=== PATIENT | female | born 1935 | race Caucasian/White ===

== ENCOUNTER → 2016-08-17 | Outpatient (CLI) | payer BC ==
[~2016-08-17] MED LIST: ACET-1256 PO; AMLO2.5T PO; APIX1TAB PO; ASCA500 PO; B-CO-25 PO; CALC-456 PO; CALCTAB5 PO; CALCTAB7 PO; CALTRATE PO; CHOL100010 PO; CHOL2000 PO; CLBCRM30 EXT; COEN10CA5 PO; COEN200C17 PO; CYAN10005 PO; FLAX10007 PO; FLAXCAP PO; HYDR-5688 PO; LISI5TAB PO; LOSA50TA6 PO; MINERALS PO; OXYC-57 PO; PRLSR20 PO; PROB1TAB16 PO; PRVC/10 PO; TMB100 PO; VITACAP37 PO; ZINC PO; ZINC30TA3 PO; [UNRECOGNIZED DRUG - CODE] PO; [UNRECOGNIZED DRUG - OTHER] PO; [UNRECOGNIZED DRUG - OTHER] PO; [UNRECOGNIZED DRUG - OTHER] PO; [UNRECOGNIZED DRUG - OTHER] PO; [UNRECOGNIZED DRUG - OTHER] PO
== END | disposition home or self-care (01) ==
LOC: C.LABSPEC 17:31
PROVIDERS: ATTEND Internal Medicine
DX: N39.41 Urge incontinence (principal)

== ENCOUNTER → 2016-08-20 | Outpatient (CLI) | payer BC ==
[2016-08-20 12:40] LABS: ESTIMATED AVERAGE GLUCOSE 128 mg/dl; HA1C FLAG Normal (Normal)
[2016-08-23 15:01] LABS: ALBUMIN 4.2 G/DL (3.8-4.8); GAMMA GLOBULIN 0.8 G/DL (0.8-1.7); TOTAL PROTEIN 6.7 G/DL (6.2-8.3)
== END | disposition home or self-care (01) ==
LOC: C.LABBFT 11:13
PROVIDERS: ATTEND Internal Medicine
DX: R73.03 Prediabetes (principal); L29.9 Pruritus, unspecified; R63.4 Abnormal weight loss; G62.9 Polyneuropathy, unspecified; Z01.419 Encounter for gynecological examination (general) (routine) without abnormal findings; N95.2 Postmenopausal atrophic vaginitis

== ENCOUNTER → 2016-08-20 | Outpatient (CLI) | payer BC | END | disposition home or self-care (01) | LOC: C.PAPS 10:43 | PROVIDERS: ATTEND Obstetrics & Gynecology | DX: Z01.419 Encounter for gynecological examination (general) (routine) without abnormal findings (principal); N95.2 Postmenopausal atrophic vaginitis ==

== ENCOUNTER → 2016-09-21 | Outpatient (CLI) | payer BC ==
[~2016-09-21] MED LIST changes: -CALCTAB5 PO; -CHOL2000 PO; -FLAXCAP PO
[2016-09-21 12:25] LABS: HEMATOCRIT 36.1 % (37-47); MEAN CELL VOLUME 90.3 fL (80-100); MEAN CORPUSCULAR HEMOGLOBIN 30.8 pg (25-34)
[2016-09-21 12:26] LABS: LYMPH % 26.3 %; LYMPH ABS # 0.71 K/uL (1.2-3.4); MEAN CORPUSCULAR HGB CONC 34.1 g/dl (32-36); NEUT % 60.7 %; PLATELET COUNT 164 K/uL (130-400)
[2016-09-21 12:46] LABS: COMPLETE YES
[2016-09-21 12:48] LABS: URINE APPEARANCE CLEAR (CLEAR); URINE BILIRUBIN NEG (NEG); URINE COLOR YELLOW; URINE NITRITE NEG (NEG); URINE SPECIFIC GRAVITY 1.015 (1.000-1.030); UROBILINOGEN NEG (NEG); ZZUR CULT IF INDIC CLEAN CATCH NO
[2016-09-21 12:52] LABS: ALT/SGPT 26 U/L (12-78); AST/SGOT 28 U/L (15-37); BLOOD UREA NITROGEN 18 mg/dl (7-18); BUN/CREATININE RATIO 18.5 (10-20); CALCIUM 8.8 mg/dl (8.5-10.1); CARBON DIOXIDE 27 mmol/L (21-32); CHLORIDE 100 mmol/L (98-107); CREATININE 0.96 mg/dl (0.60-1.20); GLUCOSE 107 mg/dl (70-99); POTASSIUM 3.8 mmol/L (3.5-5.1); SODIUM 137 mmol/L (136-145)
[2016-09-21 13:01] LABS: ALB/GLOB RATIO 1.1 (0.9-2); ALKALINE PHOSPHATASE 69 U/L (45-117); FERRITIN 176.1 ng/ml (8.0-388.0); TOTAL IRON BINDING CAPACITY 312 mcg/dl (250-450)
[2016-09-21 13:01] LABS: MANUAL MICROSCOPIC REQUIRED? NO; REVIEW REQ? NO
--- NOTE | 2016-09-27 13:52 | CODING QUERY MEDICAL NECESSITY ---
SUPPORTING DIAGNOSIS NEEDED A supporting diagnosis is required for the test/procedure performed on this patient in order for us to be reimbursed by the patient's insurance. Please provide a supporting diagnosis for the following test/procedure listed below next to the test name along with your signature. *If there is no additional diagnosis for this patient that would support the following test/procedure please document that below next to the test/procedure. Test(s)/Procedure(s) that require a supporting diagnosis: * FOLATE LEVEL DIAGNOSIS: * VITAMIN B-12 LEVEL DIAGNOSIS: * DOS: 09/21/16 Provider Signature: Date: Thank you Nishi Moncada Health Information Management Once completed, please kindly fax back to [phone] For questions please call [phone]
== END | disposition home or self-care (01) ==
LOC: C.LABBFT 10:54
PROVIDERS: ATTEND Internal Medicine
DX: R35.0 Frequency of micturition (principal); R15.9 Full incontinence of feces; R63.4 Abnormal weight loss; D64.9 Anemia, unspecified

== ENCOUNTER → 2016-09-29 | Outpatient (CLI) | payer BC ==
[2016-09-29 12:55] LABS: BASO % 0.3 %; BASO ABS # 0.01 K/uL (0-0.2); COMPLETE YES; EOS % 1.3 %; HEMATOCRIT 34.3 % (37-47); IG% 0.3 %; LYMPH ABS # 1.28 K/uL (1.2-3.4); MEAN CELL VOLUME 88.4 fL (80-100); MEAN CORPUSCULAR HEMOGLOBIN 31.2 pg (25-34); MEAN CORPUSCULAR HGB CONC 35.3 g/dl (32-36); MEAN PLATELET VOLUME 10.6 fL (7.4-10.4); MONO % 12.9 %; NEUT % 52.2 %; PLATELET COUNT 254 K/uL (130-400); RED BLOOD COUNT 3.88 M/uL (4.2-5.4); WHITE BLOOD COUNT 3.88 K/uL (4.8-10.8)
== END | disposition home or self-care (01) ==
LOC: C.LABBFT 09:28
PROVIDERS: ATTEND Internal Medicine
DX: R79.9 Abnormal finding of blood chemistry, unspecified (principal)

== ENCOUNTER 2016-10-05 10:00 | Emergency (ER) | payer BC ==
[~2016-10-05] VITALS: Ht 167.6 cm; Wt 55.2 kg
[~2016-10-05 10:00] MED LIST changes: -ACET-1256 PO; -AMLO2.5T PO; -APIX1TAB PO; -ASCA500 PO; -B-CO-25 PO; -CALC-456 PO; -CALCTAB7 PO; -CALTRATE PO; -CHOL100010 PO; -CLBCRM30 EXT; -COEN10CA5 PO; -COEN200C17 PO; -CYAN10005 PO; -FLAX10007 PO; -HYDR-5688 PO; -LOSA50TA6 PO; -MINERALS PO; -OXYC-57 PO; -PRLSR20 PO; -PROB1TAB16 PO; -PRVC/10 PO; -TMB100 PO; -VITACAP37 PO; -ZINC PO; -ZINC30TA3 PO; -[UNRECOGNIZED DRUG - OTHER] PO; -[UNRECOGNIZED DRUG - OTHER] PO; -[UNRECOGNIZED DRUG - OTHER] PO; -[UNRECOGNIZED DRUG - OTHER] PO; -[UNRECOGNIZED DRUG - OTHER] PO
[2016-10-05 10:08] VITALS: TEMP 36.9; Ht 167.6 cm; Wt 55.2 kg
[2016-10-05] MEDS ORDERED: VITACAP37 PO (10:42)
[2016-10-05] MEDS ORDERED: [UNRECOGNIZED DRUG - OTHER] PO (10:42)
[2016-10-05] MEDS ORDERED: ZINC PO (10:42)
[2016-10-05] MEDS ORDERED: B-CO-25 PO (10:42)
[2016-10-05] MEDS ORDERED: APIX1TAB PO (10:42)
[2016-10-05] MEDS ORDERED: ONDANSETRON INJ 2 MG/ML 2 ML VIAL IV STA ×2 (11:19→13:10)
[2016-10-05] MEDS ORDERED: SODIUM CHLORIDE 0.9% 1000ML 1,000 ML IV STA (11:19)
[2016-10-05] MEDS ORDERED: OXYCODONE/ACETAMINOPHEN 5-325 TAB PO ONE (11:30)
[2016-10-05 11:34] LABS: BASO % 0.4 %; BASO ABS # 0.02 K/uL (0-0.2); COMPLETE YES; EOS % 0.2 %; HEMATOCRIT 34.4 % (37-47); IG% 0.4 %; LYMPH ABS # 0.98 K/uL (1.2-3.4); MEAN CELL VOLUME 88.7 fL (80-100); MEAN CORPUSCULAR HEMOGLOBIN 31.2 pg (25-34); MEAN CORPUSCULAR HGB CONC 35.2 g/dl (32-36); MEAN PLATELET VOLUME 9.9 fL (7.4-10.4); MONO % 9.6 %; NEUT % 69.4 %; PLATELET COUNT 246 K/uL (130-400); RED BLOOD COUNT 3.88 M/uL (4.2-5.4); WHITE BLOOD COUNT 4.89 K/uL (4.8-10.8)
[2016-10-05 11:52] LABS: BUN/CREATININE RATIO 23.5 (10-20); CALCIUM 8.9 mg/dl (8.5-10.1); CREATININE 1.1 mg/dl (0.60-1.20)
--- NOTE | 2016-10-05 11:58 | DIAGNOSTIC IMAGING REPORT ---
CT SCAN OF THE ABDOMEN AND PELVIS WITHOUT CONTRAST CLINICAL HISTORY: Left flank pain COMPARISON STUDY: No previous studies for comparison. TECHNIQUE: CT scan of the abdomen and pelvis was performed from the lung bases to the proximal femurs. Images are reviewed in the axial, sagittal, and coronal planes. IV contrast was not administered for this examination. CT DOSE: 456.80 mGy.cm FINDINGS: Lower chest: The heart is enlarged. There are no pleural effusions. Liver: The unenhanced liver is normal in size, contour, and attenuation. There is no intrahepatic biliary ductal dilatation. Gallbladder: Unremarkable. Spleen: Normal in size and attenuation. Pancreas: Unremarkable. Adrenal glands: Unremarkable. Kidneys: There is a 36 mm upper pole left renal cyst. No renal calculi are visualized. There is no hydronephrosis. No ureteral or bladder calculi are visualized. Bowel: There are no transition zones indicate bowel obstruction. Evaluation the bowel is significantly limited due to the lack of intravenous and oral contrast. There are no findings to indicate acute diverticulitis. There are no findings to indicate acute appendicitis. Peritoneum: There is no intraperitoneal free air or abdominal ascites. Vasculature: The abdominal aorta is normal in course and caliber. Adenopathy: None. Pelvic viscera: Evaluation the pelvis is limited given the lack of intravenous and oral contrast and the paucity of intra-abdominal fat. No definite adnexal masses are delineated. Skeletal structures: No destructive osseous lesions are seen. IMPRESSION: 1. No renal, ureteral, or bladder calculi identified 2. Limited evaluation the bowel and pelvis due to the lack of oral and intravenous contrast. 3. No evidence of bowel obstruction. No evidence of free air 4. No acute inflammatory changes identified 5. 36 mm upper pole left renal cyst Electronically signed by: Aldair Friedman M.D. 10/05/2016 11:57 AM Dictated Date/Time: 10/05/2016 11:51 AM
[2016-10-05 12:47] LABS: URINE APPEARANCE CLOUDY (CLEAR); URINE BILIRUBIN NEG (NEG); URINE COLOR YELLOW; URINE EPITHELIAL CELL AUTO 0-5 /lpf (0-5); URINE NITRITE NEG (NEG); URINE SPECIFIC GRAVITY 1.009 (1.000-1.030); UROBILINOGEN NEG (NEG); ZZUR CULT IF INDIC CLEAN CATCH NO
[2016-10-05 12:50] LABS: MANUAL MICROSCOPIC REQUIRED? NO; REVIEW REQ? NO
[2016-10-05] MEDS ORDERED: OXYC-57 PO (12:51)
--- NOTE | 2016-10-05 12:53 | EMERGENCY ROOM VISIT NOTE ---
History Report prepared by Stanley: Halley Gonzales Under the Supervision of: Jazmyne CastroO. First contact with patient: 11:12 Chief Complaint: BACK PAIN Stated Complaint: PAIN IN LOWER BACK History of Present Illness The patient is a 80 year old female who presents to the Emergency Room with complaints of severe and worsening left lower back pain starting a few months ago. She states that her pain feels like a bony pain. She has worsening pain with movement. She has been taking some pain medication as prescribed by the pain management clinic without relief. She does not remember the name of the pain medications. She started having lose stools today. The patient denies fevers, chills, chest pain, shortness of breath, urinary symptoms, or any other complaints. Source of History: patient Onset: a few months ago Position: back (left lower) Symptom Intensity: severe Quality: other (bony pain) Timing: worsening Modifying Factors (Worsening): movement Modifying Factors (Relieving): other (pain medication without relief) Associated Symptoms: No SOB, No chest pain, No chills, No fevers, No urinary symptoms Review of Systems See HPI for pertinent positives & negatives. A total of 10 systems reviewed and were otherwise negative. Past Medical & Surgical Medical Problems: (1) High cholesterol Family History Cancer Social History Smoking Status: Never Smoker Marital Status: Occupation Status: retired Current/Historical Medications Scheduled Apixaban (Eliquis), 1 TAB PO BID Ascorbic Acid (Vitamin C), 1 TAB PO QAM B-Complex W/ Folic Acid (Super B Complex Maxi), 1 TAB PO QAM Calcium Carbonate-Vitamin D W/ (Caltrate 600 Plus), 1 TAB PO QAM Cholecalciferol (Vitamin D), 2,000 MG PO QAM Coenzyme Q10 (Ubidecarenone) (Co Q 10), 1 TAB PO QPM Cyanocobalamin (Vitamin B-12), 2,000 MCG PO QAM Flaxseed (Linseed) (Flax Seed Oil), 1 TAB PO QAM Flecainide Acetate (Flecainide Acetate), 100 MG PO BID Pravastatin Sod (Pravastatin Sodium), 1 TAB PO HS Probiotic Product (Probiotic), 1 TAB PO QAM Vitamin E (E-400), 1 CAP PO QAM [Intenzyme Sorte], 1 TAB PO QAM [Neuroven], 1 TAB PO QAM [Restores + Ad], 1 TAB PO QAM [Zinc], 10 MG PO 3XWK Scheduled PRN Oxycodone/Acetaminophen 5MG/325MG (Percocet 5MG/325MG), 1 TAB PO Q6H PRN for Pain Allergies Coded Allergies: Simvastatin (Verified Allergy, Unknown, MUSCLE WEAKNESS, 10/05/16) Cephalexin (Verified Adverse Reaction, Mild, STOMACH UPSET, 10/05/16) Physical Exam Vital Signs Date Time Temp Pulse Resp B/P Pulse Ox O2 Delivery O2 Flow Rate FiO2 10/05/16 13:23 55 18 138/66 100 10/05/16 11:35 52 148/62 99 Room Air 10/05/16 10:08 36.9 60 18 146/68 99 Room Air Physical Exam CONSTITUTIONAL/VITAL SIGNS: Reviewed / noted above. GENERAL: Non-toxic in appearance. INTEGUMENTARY: Warm, dry, and [place]. HEAD: Normocephalic. EYES: without scleral icterus or trauma. ENT/OROPHARYNX: clear and moist. LYMPHADENOPATHY/NECK: Is supple without lymphadenopathy or meningismus. RESPIRATORY: Lungs clear and equal. CARDIOVASCULAR: Regular rate and rhythm. GI/ABDOMEN: Soft and nontender. No organomegaly or pulsatile mass. No rebound or guarding. Normal bowel sounds. EXTREMITIES: Warm and well perfused. BACK: No CVA tenderness. Spasms of the left lumbar musculature with tenderness to palpation over the area, no evidence of infection. NEUROLOGICAL: Intact without focal deficits. PSYCHIATRIC: normal affect. MUSCULOSKELETAL: Normally developed with good muscle tone. Medical Decision & Procedures ER Provider Diagnostic Interpretation: CT results as stated below per my review and radiologist interpretation: CT SCAN OF THE ABDOMEN AND PELVIS WITHOUT CONTRAST CLINICAL HISTORY: Left flank pain COMPARISON STUDY: No previous studies for comparison. TECHNIQUE: CT scan of the abdomen and pelvis was performed from the lung bases to the proximal femurs. Images are reviewed in the axial, sagittal, and coronal planes. IV contrast was not administered for this examination. CT DOSE: 456.80 mGy.cm FINDINGS: Lower chest: The heart is enlarged. There are no pleural effusions. Liver: The unenhanced liver is normal in size, contour, and attenuation. There is no intrahepatic biliary ductal dilatation. Gallbladder: Unremarkable. Spleen: Normal in size and attenuation. Pancreas: Unremarkable. Adrenal glands: Unremarkable. Kidneys: There is a 36 mm upper pole left renal cyst. No renal calculi are visualized. There is no hydronephrosis. No ureteral or bladder calculi are visualized. Bowel: There are no transition zones indicate bowel obstruction. Evaluation the bowel is significantly limited due to the lack of intravenous and oral contrast. There are no findings to indicate acute diverticulitis. There are no findings to indicate acute appendicitis. Peritoneum: There is no intraperitoneal free air or abdominal ascites. Vasculature: The abdominal aorta is normal in course and caliber. Adenopathy: None. Pelvic viscera: Evaluation the pelvis is limited given the lack of intravenous and oral contrast and the paucity of intra-abdominal fat. No definite adnexal masses are delineated. Skeletal structures: No destructive osseous lesions are seen. IMPRESSION: 1. No renal, ureteral, or bladder calculi identified 2. Limited evaluation the bowel and pelvis due to the lack of oral and intravenous contrast. 3. No evidence of bowel obstruction. No evidence of free air 4. No acute inflammatory changes identified 5. 36 mm upper pole left renal cyst Electronically signed by: Aldair Friedman M.D. 10/05/2016 11:57 AM Dictated Date/Time: 10/05/2016 11:51 AM Laboratory Results 10/05/16 11:27 Red Blood Count 3.88, Mean Corpuscular Volume 88.7, Mean Corpuscular Hemoglobin 31.2, Mean Corpuscular Hemoglobin Concent 35.2, Mean Platelet Volume 9.9, Neutrophils (%) (Auto) 69.4, Lymphocytes (%) (Auto) 20.0, Monocytes (%) (Auto) 9.6, Eosinophils (%) (Auto) 0.2, Basophils (%) (Auto) 0.4, Neutrophils # (Auto) 3.39, Lymphocytes # (Auto) 0.98, Monocytes # (Auto) 0.47, Eosinophils # (Auto) 0.01, Basophils # (Auto) 0.02 10/05/16 11:27 Test 10/05/16 11:27 10/05/16 12:35 White Blood Count 4.89 K/uL (4.8-10.8) Red Blood Count 3.88 M/uL (4.2-5.4) Hemoglobin 12.1 g/dL (12.0-16.0) Hematocrit 34.4 % (37-47) Mean Corpuscular Volume 88.7 fL (80-100) Mean Corpuscular Hemoglobin 31.2 pg (25-34) Mean Corpuscular Hemoglobin Concent 35.2 g/dl (32-36) Platelet Count 246 K/uL (130-400) Mean Platelet Volume 9.9 fL (7.4-10.4) Neutrophils (%) (Auto) 69.4 % Lymphocytes (%) (Auto) 20.0 % Monocytes (%) (Auto) 9.6 % Eosinophils (%) (Auto) 0.2 % Basophils (%) (Auto) 0.4 % Neutrophils # (Auto) 3.39 K/uL (1.4-6.5) Lymphocytes # (Auto) 0.98 K/uL (1.2-3.4) Monocytes # (Auto) 0.47 K/uL (0.11-0.59) Eosinophils # (Auto) 0.01 K/uL (0-0.5) Basophils # (Auto) 0.02 K/uL (0-0.2) RDW Standard Deviation 42.5 fL (36.4-46.3) RDW Coefficient of Variation 13.1 % (11.5-14.5) Immature Granulocyte % (Auto) 0.4 % Immature Granulocyte # (Auto) 0.02 K/uL (0.00-0.02) Anion Gap 6.0 mmol/L (3-11) Est Creatinine Clear Calc Drug Dose 36.7 ml/min Estimated GFR () 55.7 Estimated GFR (Non- 48.1 BUN/Creatinine Ratio 23.5 (10-20) Calcium Level 8.9 mg/dl (8.5-10.1) Total Bilirubin 0.5 mg/dl (0.2-1) Direct Bilirubin 0.1 mg/dl (0-0.2) Aspartate Amino Transf (AST/SGOT) 21 U/L (15-37) Alanine Aminotransferase (ALT/SGPT) 23 U/L (12-78) Alkaline Phosphatase 63 U/L (45-117) Total Protein 6.9 gm/dl (6.4-8.2) Albumin 3.5 gm/dl (3.4-5.0) Urine Color YELLOW Urine Appearance CLOUDY (CLEAR) Urine pH 7.0 (4.5-7.5) Urine Specific [place] 1.009 (1.000-1.030) Urine Protein NEG (NEG) Urine Glucose (UA) NEG (NEG) Urine Ketones NEG (NEG) Urine Occult Blood NEG (NEG) Urine Nitrite NEG (NEG) Urine Bilirubin NEG (NEG) Urine Urobilinogen NEG (NEG) Urine Leukocyte Esterase NEG (NEG) Urine WBC (Auto) 0 /hpf (0-5) Urine RBC (Auto) 0-4 /hpf (0-4) Urine Hyaline Casts (Auto) 0 /lpf (0-5) Urine Epithelial Cells (Auto) 0-5 /lpf (0-5) Urine Bacteria (Auto) NEG (NEG) Laboratory results as stated above per my review. Medications Administered Medications (Trade) Dose Ordered Sig/Sarah Route Start Time Stop Time Status Last Admin Dose Admin Sodium Chloride (Nss 1000ml) 1,000 ml @ 999 mls/hr Q1H1M STAT IV 10/05/16 11:19 10/05/16 12:19 DC 10/05/16 11:33 999 MLS/HR Ondansetron HCl (Zofran Inj) 4 mg NOW STAT IV 10/05/16 11:19 10/05/16 11:21 DC 10/05/16 11:32 4 MG Oxycodone/ Acetaminophen (Percocet 5-325mg Tab) 1 tab NOW ONCE PO 10/05/16 11:30 10/05/16 11:31 DC 10/05/16 11:32 1 TAB ED Course 1112: Previous medical records were reviewed. The patient was evaluated in room B12A. A complete history and physical examination was performed. 1119: Zofran Inj 4 mg IV, Sodium Chloride 1000 ml @ 999 mls/hr IV 1130: Oxycodone/Acetaminophen 1 tab PO 1220: On reevaluation, the patient is resting comfortably. I discussed the results and findings with the patient. She verbalized agreement of the treatment plan. She was discharged home. Medical Decision Differential considered includes cauda equina syndrome, conus medullaris, spinal cord compression syndrome, peripheral nerve compression, fractures or subluxations, intra-abdominal pathology such as abdominal aortic aneurysm or kidney stones, muscle strain, transverse myelitis, spinal cord injury. Is a 80-year-old female who presents to the ED with a chief complaint of left low back and hip pain. The patient states that her symptoms are worse when she twists herself or with certain movements. She has been taking Tylenol for the pain. It is been going on for months. She has been seen by the pain clinic and was given medication which she cannot recall she was given. She also was referred to therapy. The patient states that she is not having improvement of pain. She has not followed up with pain management. Her symptoms have progressively worsened. Her vital signs are stable. Her physical exam reveals what appears to be mostly muscular and soft tissue pain to the low back region. A CT scan of the abdomen and pelvis did not show any acute disease. There is a left renal cyst noted. CBC is normal. Complete metabolic panel was normal. Urine dip did not suggest infection. The patient was told the results. Her symptoms are felt to be musculoskeletal. She is felt to be stable for discharge. Prescription for Percocet given. Impression Primary Impression: Back muscle spasm Scribe Attestation The scribe's documentation has been prepared under my direction and personally reviewed by me in its entirety. I confirm that the note above accurately reflects all work, treatment, procedures, and medical decision making performed by me. Departure Information Dispostion Home / Self-Care Prescriptions Oxycodone/Acetaminophen 5MG/325MG (PERCOCET 5MG/325MG) Tab 1 TAB PO Q6H Y for Pain, #20 TAB Prov: Isiah Vaz D.O. 10/05/16 Referrals Nicanor Ahmadi M.D. (PCP) Forms HOME CARE DOCUMENTATION FORM, IMPORTANT VISIT INFORMATION Patient Instructions My [facility] [employer] Additional Instructions Percocet as prescribed. No driving within 6 hours of use. Do not take additional Tylenol while taking Percocet. May cause constipation. Take over- the-counter laxative as necessary. Follow-up with physical therapy, massage therapy or chiropractic for additional care. A left kidney cyst was seen on your CAT scan. Talk to your doctor about this.
[2016-10-05] MEDS ORDERED: TMB100 PO (13:03)
[2016-10-05] MEDS ORDERED: [UNRECOGNIZED DRUG - OTHER] PO (13:03)
[2016-10-05 13:23] VITALS: BP 138/66; PULSE 55; O2SAT 100
[2016-10-05] MEDS ORDERED: CHOL100010 PO (14:59)
[2016-10-05] MEDS ORDERED: COEN10CA5 PO (14:59)
[2016-10-05] MEDS ORDERED: FLAX10007 PO (14:59)
[2016-10-05] MEDS ORDERED: [UNRECOGNIZED DRUG - OTHER] PO (14:59)
[2016-10-05] MEDS ORDERED: CALCTAB7 PO (14:59)
[2016-10-05] MEDS ORDERED: ASCA500 PO (14:59)
[2016-10-05] MEDS ORDERED: CYAN10005 PO (14:59)
[2016-10-05] MEDS ORDERED: PRVC/10 PO (14:59)
[2016-10-05] MEDS ORDERED: PROB1TAB16 PO (14:59)
[2017-01-20] MEDS ORDERED: HYDR-5688 PO (12:21)
== END 2016-10-05 13:24 | disposition home or self-care (01) ==
LOC: C.EDB 10:02
DX: M62.830 Muscle spasm of back (principal); Z80.9 Family history of malignant neoplasm, unspecified

== ENCOUNTER 2016-10-13 15:58 | Emergency (ER) | payer BC, MEDICARE ==
[~2016-10-13] VITALS: Ht 170.2 cm; Wt 53.5 kg
[~2016-10-13 15:58] MED LIST changes: -ACET-1256 PO; -AMLO2.5T PO; -CALC-456 PO; -CALTRATE PO; -CLBCRM30 EXT; -COEN200C17 PO; -HYDR-5688 PO; -LOSA50TA6 PO; -MINERALS PO; -PRLSR20 PO; -ZINC30TA3 PO; -[UNRECOGNIZED DRUG - CODE] PO; -[UNRECOGNIZED DRUG - OTHER] PO; -[UNRECOGNIZED DRUG - OTHER] PO
[2016-10-13 16:04] VITALS: TEMP 36.6; Ht 170.2 cm; Wt 53.5 kg
[2016-10-13 16:34] VITALS: O2SAT 100
--- NOTE | 2016-10-13 16:36 | DIAGNOSTIC IMAGING REPORT ---
CHEST ONE VIEW PORTABLE CLINICAL HISTORY: Severe hypertension. COMPARISON STUDY: None. FINDINGS: Lung volumes are normal. There is no pneumothorax or pleural effusion. There is no evidence of pulmonary edema. No consolidation is identified. Moderate cardiomegaly is noted. IMPRESSION: 1. No acute findings. 2. Moderate cardiomegaly. Electronically signed by: Dexter Klein M.D. 10/13/2016 4:35 PM Dictated Date/Time: 10/13/2016 4:33 PM
[2016-10-13 16:52] LABS: BASO % 0.4 %; BASO ABS # 0.02 K/uL (0-0.2); COMPLETE YES; EOS % 0.8 %; HEMATOCRIT 34.1 % (37-47); IG% 0.2 %; LYMPH % 29.5 %; LYMPH ABS # 1.39 K/uL (1.2-3.4); MEAN CELL VOLUME 90.5 fL (80-100); MEAN CORPUSCULAR HEMOGLOBIN 31.8 pg (25-34); MEAN CORPUSCULAR HGB CONC 35.2 g/dl (32-36); MONO % 9.8 %; NEUT % 59.3 %; PLATELET COUNT 205 K/uL (130-400); RED BLOOD COUNT 3.77 M/uL (4.2-5.4); WHITE BLOOD COUNT 4.71 K/uL (4.8-10.8)
[2016-10-13 17:12] LABS: INR 1.1 (0.9-1.1); PROTHROMBIN TIME (PATIENT) 11.5 SECONDS (9.0-12.0)
[2016-10-13 17:14] LABS: ALT/SGPT 24 U/L (12-78); AST/SGOT 24 U/L (15-37); BLOOD UREA NITROGEN 25 mg/dl (7-18); BUN/CREATININE RATIO 25.5 (10-20); CALCIUM 9.1 mg/dl (8.5-10.1); CARBON DIOXIDE 26 mmol/L (21-32); CHLORIDE 104 mmol/L (98-107); CREATININE 0.99 mg/dl (0.60-1.20); GLUCOSE 97 mg/dl (70-99); POTASSIUM 3.8 mmol/L (3.5-5.1); SODIUM 139 mmol/L (136-145)
[2016-10-13 17:25] LABS: ALKALINE PHOSPHATASE 63 U/L (45-117); CKMB/CK RATIO 3.3 (0-3.0)
[2016-10-13] MEDS ORDERED: ZINC30TA3 PO (17:45)
[2016-10-13] MEDS ORDERED: [UNRECOGNIZED DRUG - CODE] PO (17:45)
[2016-10-13] MEDS ORDERED: MINERALS PO (17:45)
[2016-10-13] MEDS ORDERED: [UNRECOGNIZED DRUG - OTHER] PO (17:45)
[2016-10-13] MEDS ORDERED: CALTRATE PO (17:45)
[2016-10-13] MEDS ORDERED: COEN200C17 PO (17:45)
[2016-10-13] MEDS ORDERED: ACET-1256 PO (17:46)
[2016-10-13] MEDS ORDERED: [UNRECOGNIZED DRUG - OTHER] PO (17:46)
[2016-10-13 17:53] LABS: URINE APPEARANCE CLEAR (CLEAR); URINE BILIRUBIN NEG (NEG); URINE COLOR YELLOW; URINE NITRITE NEG (NEG); URINE PH 6.5 (4.5-7.5); URINE SPECIFIC GRAVITY 1.004 (1.000-1.030); UROBILINOGEN NEG (NEG)
[2016-10-13 17:55] LABS: MANUAL MICROSCOPIC REQUIRED? NO; REVIEW REQ? NO
[2016-10-13 20:42] VITALS: BP 177/79; PULSE 51; O2SAT 100
[2016-10-13] MEDS ORDERED: LOSARTAN POTASSIUM 50 MG TAB PO STA (20:58)
[2016-10-13] MEDS ORDERED: LOSA50TA6 PO (21:09)
--- NOTE | 2016-10-13 21:15 | EMERGENCY ROOM VISIT NOTE ---
History Report prepared by Stanley: Carrie Yadav Under the Supervision of: Dr. Tre De La Fuente M.D. First contact with patient: 16:17 Chief Complaint: HYPERTENSION Stated Complaint: HIGH BLOOD PRESSURE History of Present Illness The patient is a 80 year old female who presents to the Emergency Room with complaints of hypertension that was noticed earlier today. The patient was sent by GI. She was scheduled to have an endoscopy done by Dr. Rose today, but he noticed that her blood pressure was high and she was having other symptoms so he recommended that she come into the ED for further evaluation. She is also experiencing lightheadedness. Pt denies LOC, headache, fevers, chills, diaphoresis, visual changes, neck pain, chest pain, breathing difficulties, nausea, vomiting, abdominal pain, melena, hematochezia, urinary symptoms, numbness, weakness, lymphadenopathy, rash, or other complaints. The patient's last ate this morning around 0600. She states that she had oatmeal and a half of a bagel with cream cheese. She states that she was previously on Lisinopril for hypertension, but her PCP took her off because it was having strange effects on her and her blood pressure was doing well. She states that she was on Lisinopril for only a couple months. The patient checks her blood pressure at home regularly and she states that they were good, but she is unsure of the exact numbers. The patient's son adds that she has been experiencing muscle spasms in her back and she was evaluated in the ED last week for that. Source of History: patient, family (son) Onset: earlier today Position: other (global) Quality: other (hypertension) Associated Symptoms: + back pain (muscle spasms) Note: lightheadedness Review of Systems See HPI for pertinent positives and negatives. A total of ten systems were reviewed and were otherwise negative. Past Medical & Surgical Medical Problems: (1) High cholesterol Family History Cancer Social History Smoking Status: Never Smoker Marital Status: Occupation Status: retired Current/Historical Medications Scheduled Apixaban (Eliquis), 2.5 MG PO BID Ascorbic Acid (Vitamin C), 500 MG PO QAM B-Complex W/ Folic Acid (Super B Complex Maxi), 1 TAB PO QAM Cholecalciferol (Vitamin D), 2,000 MG PO QAM Choline (Phosphatidyl Choline), 1 TAB PO QAM Coenzyme Q10 (Ubidecarenone) (Co-Enzyme Q10), 200 MG PO QAM Cyanocobalamin (Vitamin B-12), 2,000 MCG PO QAM Flaxseed (Linseed) (Flax Seed Oil), 1,000 MG PO QAM Flecainide Acetate (Flecainide Acetate), 100 MG PO BID Losartan Potassium (Cozaar), 1 TAB PO DAILY Probiotic Product (Probiotic), 1 TAB PO QAM Vitamin E (E-400), 400 UNIT PO QAM Zinc Gluconate (Zinc), 10 MG PO 3XWK [Caltrate + Minerals], 1 TAB PO QAM [Glycerna Protein], 1 CAN PO 1-2 DAILY [Intenzyme Forte], 1 TAB PO HS [Neuroven], 1 TAB PO QAM [Restores + Ad], 1 TAB PO QAM Scheduled PRN Acetaminophen (Tylenol), 500 MG PO Q8 PRN for Pain Oxycodone/Acetaminophen 5MG/325MG (Percocet 5MG/325MG), 1 TAB PO Q6H PRN for Pain Allergies Coded Allergies: Simvastatin (Verified Allergy, Unknown, MUSCLE WEAKNESS, 10/13/16) Cephalexin (Verified Adverse Reaction, Mild, STOMACH UPSET, 10/13/16) Physical Exam Vital Signs Date Time Temp Pulse Resp B/P Pulse Ox O2 Delivery O2 Flow Rate FiO2 10/13/16 20:42 177/79 10/13/16 20:28 51 17 10/13/16 20:17 181/77 10/13/16 20:00 186/88 10/13/16 19:58 53 15 100 10/13/16 19:50 178/72 10/13/16 19:49 186/90 10/13/16 19:45 189/93 10/13/16 19:30 194/96 10/13/16 19:28 56 18 98 10/13/16 19:15 193/89 10/13/16 19:03 182/89 10/13/16 19:02 51 18 182/89 99 Room Air 10/13/16 18:58 49 99 10/13/16 18:30 197/98 10/13/16 18:28 52 18 99 10/13/16 18:21 204/96 10/13/16 18:15 200/93 10/13/16 18:11 53 12 200/96 98 10/13/16 18:10 200/96 10/13/16 17:58 50 16 99 10/13/16 17:43 51 18 186/79 100 Room Air 10/13/16 17:43 52 10/13/16 17:41 186/79 10/13/16 16:34 54 20 209/97 99 Room Air 10/13/16 16:34 100 Room Air 10/13/16 16:34 100 Room Air 10/13/16 16:04 36.6 56 20 200/87 99 Room Air Physical Exam GENERAL: Awake, alert, well-appearing, in no distress HENT: Normocephalic, atraumatic. Oropharynx unremarkable. EYES: Normal conjunctiva. Sclera non-icteric. NECK: Supple. No nuchal rigidity. FROM. No JVD. RESPIRATORY: Clear to auscultation. CARDIAC: Regular rate, normal rhythm. Extremities warm and well perfused. Pulses equal. ABDOMEN: Soft, non-distended. No tenderness to palpation. No rebound or guarding. No masses. RECTAL: Deferred. MUSCULOSKELETAL: Chest examination reveals no tenderness. The back is symmetrical on inspection without obvious abnormality. There is no CVA tenderness to palpation. No joint edema. LOWER EXTREMITIES: Calves are equal size bilaterally and non-tender. No edema. No discoloration. NEURO: Normal sensorium. No sensory or motor deficits noted. SKIN: No rash or jaundice noted. Medical Decision & Procedures ER Provider Diagnostic Interpretation: X ray results as stated below per my interpretation and radiologist interpretation. CHEST ONE VIEW PORTABLE IMPRESSION: 1. No acute findings. 2. Moderate cardiomegaly. Electronically signed by: Dexter Klein M.D. 10/13/2016 4:35 PM Dictated Date/Time: 10/13/2016 4:33 PM Laboratory Results 10/13/16 16:35 Red Blood Count 3.77, Mean Corpuscular Volume 90.5, Mean Corpuscular Hemoglobin 31.8, Mean Corpuscular Hemoglobin Concent 35.2, Mean Platelet Volume 10.0, Neutrophils (%) (Auto) 59.3, Lymphocytes (%) (Auto) 29.5, Monocytes (%) (Auto) 9.8, Eosinophils (%) (Auto) 0.8, Basophils (%) (Auto) 0.4, Neutrophils # (Auto) 2.79, Lymphocytes # (Auto) 1.39, Monocytes # (Auto) 0.46, Eosinophils # (Auto) 0.04, Basophils # (Auto) 0.02 10/13/16 16:35 Test 10/13/16 16:35 10/13/16 17:40 10/13/16 19:01 White Blood Count 4.71 K/uL (4.8-10.8) Red Blood Count 3.77 M/uL (4.2-5.4) Hemoglobin 12.0 g/dL (12.0-16.0) Hematocrit 34.1 % (37-47) Mean Corpuscular Volume 90.5 fL (80-100) Mean Corpuscular Hemoglobin 31.8 pg (25-34) Mean Corpuscular Hemoglobin Concent 35.2 g/dl (32-36) Platelet Count 205 K/uL (130-400) Mean Platelet Volume 10.0 fL (7.4-10.4) Neutrophils (%) (Auto) 59.3 % Lymphocytes (%) (Auto) 29.5 % Monocytes (%) (Auto) 9.8 % Eosinophils (%) (Auto) 0.8 % Basophils (%) (Auto) 0.4 % Neutrophils # (Auto) 2.79 K/uL (1.4-6.5) Lymphocytes # (Auto) 1.39 K/uL (1.2-3.4) Monocytes # (Auto) 0.46 K/uL (0.11-0.59) Eosinophils # (Auto) 0.04 K/uL (0-0.5) Basophils # (Auto) 0.02 K/uL (0-0.2) RDW Standard Deviation 44.4 fL (36.4-46.3) RDW Coefficient of Variation 13.5 % (11.5-14.5) Immature Granulocyte % (Auto) 0.2 % Immature Granulocyte # (Auto) 0.01 K/uL (0.00-0.02) Prothrombin Time 11.5 SECONDS (9.0-12.0) Prothromb Time International Ratio 1.1 (0.9-1.1) Activated Partial Thromboplast Time 25.7 SECONDS (21.0-31.0) Partial Thromboplastin Ratio 1.0 Anion Gap 9.0 mmol/L (3-11) Est Creatinine Clear Calc Drug Dose 39.6 ml/min Estimated GFR () 63.3 Estimated GFR (Non- 54.6 BUN/Creatinine Ratio 25.5 (10-20) Calcium Level 9.1 mg/dl (8.5-10.1) Total Bilirubin 0.5 mg/dl (0.2-1) Direct Bilirubin 0.1 mg/dl (0-0.2) Aspartate Amino Transf (AST/SGOT) 24 U/L (15-37) Alanine Aminotransferase (ALT/SGPT) 24 U/L (12-78) Alkaline Phosphatase 63 U/L (45-117) Total Protein 7.3 gm/dl (6.4-8.2) Albumin 4.0 gm/dl (3.4-5.0) Lipase 256 U/L (73-393) Thyroid Stimulating Hormone (TSH) 1.400 uIu/ml (0.300-4.500) Urine Color YELLOW Urine Appearance CLEAR (CLEAR) Urine pH 6.5 (4.5-7.5) Urine Specific Russell 1.004 (1.000-1.030) Urine Protein NEG (NEG) Urine Glucose (UA) NEG (NEG) Urine Ketones NEG (NEG) Urine Occult Blood NEG (NEG) Urine Nitrite NEG (NEG) Urine Bilirubin NEG (NEG) Urine Urobilinogen NEG (NEG) Urine Leukocyte Esterase NEG (NEG) Total Creatine Kinase 162 U/L (26-192) Creatine Kinase MB 4.9 ng/ml (0.5-3.6) Creatine Kinase MB Ratio 3.0 (0-3.0) Troponin I 0.016 ng/ml (0-0.045) Laboratory results reviewed by me Medications Administered Medications (Trade) Dose Ordered Sig/Sarah Route Start Time Stop Time Status Last Admin Dose Admin Losartan Potassium (coZAAR TAB) 50 mg NOW STAT PO 10/13/16 20:58 10/13/16 20:59 DC 10/13/16 21:09 50 MG ECG Indication: other (hypertension) Rate (beats per minute): 48 Rhythm: sinus bradycardia Findings: 1st degree AV block, no acute ischemic change, no ectopy ED Course 1633: The patient was evaluated in room A11. A complete history and physical exam was performed. 1833: I reassessed the patient. She is not doing any better. 1953: I reassessed and updated the patient. Her blood pressure is improving. 2053: Discussed the patient's case with Dr. Omalley - Cardiology. He said start her on Losartan 50 mg daily and give her the first dose now. He also said to have her follow-up in the office. 2057: Ordered Losartan Potassium 50 mg PO 2058: I reevaluated the patient. Discussed results and discharge instructions: the patient and her family verbalized understanding and agreement. The patient is ready for discharge. Medical Decision Prior records/ancillary studies reviewed regarding the history above. Triage Nursing notes reviewed and agree them. Additional history obtained from the family. The patient's history was concerning for hypertension. Differential diagnosis: Etiologies such as hypertensive emergency, benign hypertension, cardiovascular pathology, pheochromocytoma, electrolyte abnormality, renal disease, endorgan damage, as well as others were entertained. Physical examination: As above. ER treatment provided: Monitoring On reassessment the patient felt better. Cozaar 50 mg Diagnostic interpretation by me: The electrocardiogram was negative for pathologic change. The labs revealed an unremarkable CBC, chemistry panel, LFTs and troponin. Repeat troponin was essentially unchanged. The patient's CK-MB was minimally elevated. Repeat CK-MB was less. Imaging studies: Chest x-ray as above. Consultation: A consultation was placed with the screen printing machine operator on-call, Dr. Omalley. The case was discussed and diagnostics were reviewed. He recommended the initiation of Cozaar 50 mg daily. He did not feel the patient should be admitted to the hospital given the scenario but her blood pressure should be treated. The patient will follow-up in the office. I had a long discussion with the patient and family. The patient is doing well at this time. She had really no specific symptoms and essentially has asymptomatic hypertension. Numbers are significant but with rest and monitoring in the Emergency Room the pressure dropped down significantly. Given the findings initiation of medication is not unreasonable and the patient has a pending cardiology follow-up. This will occur in about 2 weeks so I want the patient to follow-up with her primary physician for blood pressure recheck. Family patient felt comfortable with this. A prescription was sent to her pharmacy. By the evaluation outlined above emergent etiologies such as hypertensive emergency, pheochromocytoma, endorgan damage, cardiac ischemia, aortic dissection, pulmonary embolism, pneumonia, pneumothorax, infections, gastrointestinal, as well as others were deemed relatively unlikely. The patient and family were informed about the findings as listed above. All questions were answered and they were pleased with the treatment. Return instructions were outlined and the patient was discharged in stable condition. Outpatient prescription management: Cozaar 50 mg daily The chart was completed utilizing [employer] Speech voice recognition software. Grammatical errors, random word insertions, pronoun errors, and incomplete sentences are an occasional consequence of this system due to software limitations, ambient noise, and hardware issues. Any formal questions or concerns about the content, text, or information contained within the body of this dictation should be directly addressed to the physician for clarification. Consults Time Called: 2038 Consulting Physician: Dr. Omalley - Cardiology Returned Call: 2053 Discussed the patient's case with Dr. Shahram Stephen. He said start her on Losartan 50 mg daily and give her the first dose now. He also said to have her follow-up in the office. Impression Primary Impression: Hypertension Scribe Attestation The scribe's documentation has been prepared under my direction and personally reviewed by me in its entirety. I confirm that the note above accurately reflects all work, treatment, procedures, and medical decision making performed by me. Departure Information Dispostion Home / Self-Care Prescriptions Losartan Potassium (COZAAR) 50 Mg Tab 1 TAB PO DAILY for 30 Days, #30 TAB Prov: Tre De La Fuente MD 10/13/16 Referrals Nicanor Ahmadi M.D. (PCP) Forms HOME CARE DOCUMENTATION FORM, IMPORTANT VISIT INFORMATION, WORK / SCHOOL INSTRUCTIONS Patient Instructions My [facility] Additional Instructions Start losartan 50 mg daily in the evening for your blood pressure. Review the package insert for all your medications. This is necessary as important health information is provided for your benefit and current care. Call and make a follow-up appointment for Dr. Ahmadi's office. This is to monitor your blood pressure and check the effectiveness of the medication. You should be able to get this appointment in the next few days or first thing next week to bridge the time between now and when you follow up with your screen printing machine operator. If you have difficulty obtaining your primary follow-up in a timely fashion call back to the emergency department to speak with the lead case manager. The numbers [phone]. Return to the ER for worsening blood pressure problems, chest pain, difficulty breathing, fevers, vomiting, worsening of your condition, or as needed.
[2017-01-20] MEDS ORDERED: HYDR-5688 PO (12:21)
== END 2016-10-13 21:16 | disposition home or self-care (01) ==
LOC: C.EDB 15:59 → C.EDA 21:16
DX: I10 Essential (primary) hypertension (principal); I44.0 Atrioventricular block, first degree; R00.1 Bradycardia, unspecified; E78.00 Pure hypercholesterolemia, unspecified; Z79.899 Other long term (current) drug therapy; Z88.8 Allergy status to other drugs, medicaments and biological substances; Z80.9 Family history of malignant neoplasm, unspecified; Z79.01 Long term (current) use of anticoagulants

== ENCOUNTER → 2016-10-13 | Day surgery (SDC) | payer BC ==
[~2016-10-13] VITALS: Ht 165.1 cm; Wt 56.4 kg
[~2016-10-13] MED LIST changes: +ACET-1256 PO; +AMLO2.5T PO; +APIX1TAB PO; +ASCA500 PO; +B-CO-25 PO; +CALC-456 PO; +CALCTAB7 PO; +CALTRATE PO; +CHOL100010 PO; +CLBCRM30 EXT; +COEN10CA5 PO; +COEN200C17 PO; +CYAN10005 PO; +FLAX10007 PO; +HYDR-5688 PO; -LISI5TAB PO; +LOSA50TA6 PO; +MINERALS PO; +OXYC-57 PO; +PRLSR20 PO; +PROB1TAB16 PO; +PRVC/10 PO; +TMB100 PO; +VITACAP37 PO; +ZINC PO; +ZINC30TA3 PO; +[UNRECOGNIZED DRUG - OTHER] PO; +[UNRECOGNIZED DRUG - OTHER] PO; +[UNRECOGNIZED DRUG - OTHER] PO; +[UNRECOGNIZED DRUG - OTHER] PO; +[UNRECOGNIZED DRUG - OTHER] PO
[2016-10-13 14:35] VITALS: Ht 165.1 cm; Wt 56.4 kg
[2016-10-13 14:50] VITALS: BP 190/77; PULSE 59; TEMP 36.6; O2SAT 99
--- NOTE | 2016-10-13 15:54 | Endo History and Physical ---
History & Physical Date of Service: Oct 13, 2016. Chief Complaint: REFLUX Referring Physician: DR. HUYNH History of Present Illness 80 yo CF who presents for EGD secondary to GERD. She was noted to have elevated BP's with systolic ranging from 190's to 200s. She does admit to having some lightheadedness and states that her blood pressure medication was stopped approximately [address] Quick and I discussed the fact that this is an elective procedure, and we recommended that she be evaluated in the ER for further evaluation. Past Medical History High Cholesterol Past Surgical History Hx Cardiac Surgery: No Hx Internal Defibrillator: No Hx Pacemaker: No Hx Abdominal Surgery: Yes (RIGHT INGUINAL HERNIA, D&C) Hx of Implantable Prosthesis: No Hx Post-Op Nausea and Vomiting: No Hx Cancer Surgery: No Hx Thoracic Surgery: No Hx Orthopedic: No Hx Urinary Tract Surgery: No Family History None Social History Smoking Status: Never Smoker Hx Substance Use: No Hx Alcohol Use: Yes (OCCASIONAL) Allergies Coded Allergies: Simvastatin (Verified Allergy, Unknown, MUSCLE WEAKNESS, 10/05/16) Cephalexin (Verified Adverse Reaction, Mild, STOMACH UPSET, 10/05/16) Current Medications Reported Home Medications Medications Dose Route/Sig Max Daily Dose Days Date Category Percocet 5MG/325MG (Oxycodone/Acetaminophen) Tab 1 Tab PO Q6H PRN 10/05/16 Rx [Neuroven] 1 Tab PO QAM 09/09/16 Reported Probiotic (Probiotic Product) 1 Tab Tab 1 Tab PO QAM 09/09/16 Reported Flax Seed Oil (Flaxseed (Linseed)) 1,000 Mg Cap 1 Tab PO QAM 09/09/16 Reported Co Q 10 (Coenzyme Q10 (Ubidecarenone)) 10 Mg Cap 1 Tab PO QPM 09/09/16 Reported Caltrate 600 Plus (Calcium Carbonate-Vitamin D W/) 1 Tab Tab 1 Tab PO QAM 09/09/16 Reported Vitamin B-12 (Cyanocobalamin) 1,000 Mcg Tab 2,000 Mcg PO QAM 09/09/16 Reported Vitamin D (Cholecalciferol) 1,000 Unit Tab 2,000 Mg PO QAM 09/09/16 Reported Vitamin C (Ascorbic Acid) 500 Mg Tab 1 Tab PO QAM 09/09/16 Reported Pravastatin Sodium (Pravastatin Sod) 10 Mg Tab 1 Tab PO HS 09/09/16 Reported [Intenzyme Sorte] 1 Tab PO QAM 02/27/16 Reported [Zinc] 10 Mg PO 3XWK 02/27/16 Reported E-400 (Vitamin E) 400 Unit Cap 1 Cap PO QAM 02/27/16 Reported Super B Complex Maxi (B-Complex W/ Folic Acid) 1 Tab Tab 1 Tab PO QAM 02/27/16 Reported Eliquis (Apixaban) 2.5 Mg Tab 1 Tab PO BID 02/27/16 Reported [Restores + Ad] 1 Tab PO QAM 10/24/14 Reported Flecainide Acetate 100 Mg Tab 100 Mg PO BID 10/24/14 Reported Vital Signs Weight (Kilograms): 56.36 Height (Feet): 5 Height (Inches): 5 Date Time Temp Pulse Resp B/P Pulse Ox O2 Delivery O2 Flow Rate FiO2 10/13/16 14:50 36.6 59 20 190/77 99 Room Air Physical Exam General Appearance: WD/WN, no apparent distress Respiratory/Chest: Auscultation: breath sounds normal Cardiovascular: Heart Auscultation: RRR Abdomen: Bowel Sounds: normal Inspection & Palpation: soft, non-distended, no tenderness, guarding & rebound Assessment and Plan Assessment: 80 yo CF who presents for EGD secondary to GERD who is noted to have symptomatic hypertension. Plan: Discussed case with Dr. Blanchard in the ER and he will see the patient and make further recommendations. She was given a prescription for Omeprazole 20mg by mouth each morning 1/2 hour prior to breakfast. She will be scheduled to see our office in 4 weeks for further evaluation and recommendations. Advised patient to followup with Dr. Huynh for further evaluation and recommendations regarding elevated BP later this week. She agreed with this plan.
== END | disposition home or self-care (01) ==
LOC: C.GI 14:27
PROVIDERS: ATTEND Internal Medicine
DX: I10 Essential (primary) hypertension (principal); K21.9 Gastro-esophageal reflux disease without esophagitis; E78.00 Pure hypercholesterolemia, unspecified; Z53.09 Procedure and treatment not carried out because of other contraindication

== ENCOUNTER → 2016-11-15 | Outpatient (CLI) | payer BC ==
[~2016-11-15] MED LIST changes: +ACET-1256 PO; +AMLO2.5T PO; +CALC-456 PO; -CALCTAB7 PO; +CALTRATE PO; +CLBCRM30 EXT; -COEN10CA5 PO; +COEN200C17 PO; +HYDR-5688 PO; +LOSA50TA6 PO; +MINERALS PO; +PRLSR20 PO; -PRVC/10 PO; -ZINC PO; +ZINC30TA3 PO; +[UNRECOGNIZED DRUG - CODE] PO; +[UNRECOGNIZED DRUG - OTHER] PO; +[UNRECOGNIZED DRUG - OTHER] PO; -[UNRECOGNIZED DRUG - OTHER] PO
[2016-11-15 12:47] LABS: ALT/SGPT 27 U/L (12-78); AST/SGOT 23 U/L (15-37); BLOOD UREA NITROGEN 23 mg/dl (7-18); BUN/CREATININE RATIO 22.7 (10-20); CALCIUM 9.2 mg/dl (8.5-10.1); CARBON DIOXIDE 31 mmol/L (21-32); CHLORIDE 102 mmol/L (98-107); GLUCOSE 123 mg/dl (70-99); POTASSIUM 3.8 mmol/L (3.5-5.1); SODIUM 139 mmol/L (136-145)
[2016-11-15 12:51] LABS: ALB/GLOB RATIO 1.1 (0.9-2); ALKALINE PHOSPHATASE 60 U/L (45-117)
[2016-11-15 13:32] LABS: ESTIMATED AVERAGE GLUCOSE 131 mg/dl; HA1C FLAG Normal (Normal)
--- NOTE | 2016-11-19 09:40 | CODING QUERY MEDICAL NECESSITY ---
SUPPORTING DIAGNOSIS NEEDED A supporting diagnosis is required for the test/procedure performed on this patient in order for us to be reimbursed by the patient's insurance. Please provide a supporting diagnosis for the following test/procedure listed below next to the test name along with your signature. *If there is no additional diagnosis for this patient that would support the following test/procedure please document that below next to the test/procedure. Test(s)/Procedure(s) that require a supporting diagnosis: * VITAMIN D 25-HYDROXY DIAGNOSIS: * GLYCATED HEMOGLOBIN DIAGNOSIS: * DOS: 11/15/16 Provider Signature: Date: Thank you Nishi Moncada Health Information Management Once completed, please kindly fax back to [phone] For questions please call [phone]
== END | disposition home or self-care (01) ==
LOC: C.LABBFT 09:02
PROVIDERS: ATTEND Internal Medicine
DX: M85.80 Other specified disorders of bone density and structure, unspecified site (principal); I10 Essential (primary) hypertension; R73.03 Prediabetes; M81.0 Age-related osteoporosis without current pathological fracture

== ENCOUNTER → 2016-11-25 | Outpatient (CLI) | payer BC ==
[2016-11-25 17:50] LABS: BASO % 0.4 %; BASO ABS # 0.02 K/uL (0-0.2); COMPLETE YES; EOS % 0.9 %; HEMATOCRIT 34.1 % (37-47); IG% 0.2 %; LYMPH % 25.3 %; LYMPH ABS # 1.17 K/uL (1.2-3.4); MEAN CELL VOLUME 91.7 fL (80-100); MEAN CORPUSCULAR HEMOGLOBIN 31.5 pg (25-34); MEAN CORPUSCULAR HGB CONC 34.3 g/dl (32-36); MEAN PLATELET VOLUME 10.8 fL (7.4-10.4); MONO % 9.5 %; NEUT % 63.7 %; PLATELET COUNT 253 K/uL (130-400); RED BLOOD COUNT 3.72 M/uL (4.2-5.4); WHITE BLOOD COUNT 4.63 K/uL (4.8-10.8)
== END | disposition home or self-care (01) ==
LOC: C.LABBFT 11:16
PROVIDERS: ATTEND Internal Medicine Hematology & Oncology
DX: D72.819 Decreased white blood cell count, unspecified (principal)

== ENCOUNTER → 2016-12-16 | Outpatient (CLI) | payer BC ==
[2016-12-16 17:39] LABS: BASO % 0.4 %; BASO ABS # 0.02 K/uL (0-0.2); COMPLETE YES; EOS % 1.1 %; HEMATOCRIT 33.4 % (37-47); IG% 0.2 %; LYMPH % 25.7 %; LYMPH ABS # 1.46 K/uL (1.2-3.4); MEAN CELL VOLUME 90.8 fL (80-100); MEAN CORPUSCULAR HEMOGLOBIN 31.8 pg (25-34); MEAN PLATELET VOLUME 10.4 fL (7.4-10.4); MONO % 8.5 %; NEUT % 64.1 %; PLATELET COUNT 230 K/uL (130-400); RED BLOOD COUNT 3.68 M/uL (4.2-5.4); WHITE BLOOD COUNT 5.68 K/uL (4.8-10.8)
== END | disposition home or self-care (01) ==
LOC: C.LABBFT 10:23
PROVIDERS: ATTEND Internal Medicine Hematology & Oncology
DX: D72.819 Decreased white blood cell count, unspecified (principal)

== ENCOUNTER → 2017-01-14 | Outpatient (CLI) | payer BC ==
[2017-01-14 12:32] LABS: BASO % 0.4 %; BASO ABS # 0.02 K/uL (0-0.2); COMPLETE YES; EOS % 0.5 %; IG% 0.2 %; LYMPH % 21.8 %; LYMPH ABS # 1.19 K/uL (1.2-3.4); MEAN CELL VOLUME 91.2 fL (80-100); MEAN CORPUSCULAR HEMOGLOBIN 31.4 pg (25-34); MEAN CORPUSCULAR HGB CONC 34.4 g/dl (32-36); MEAN PLATELET VOLUME 10.2 fL (7.4-10.4); MONO % 9.5 %; NEUT % 67.6 %; PLATELET COUNT 269 K/uL (130-400); RED BLOOD COUNT 3.73 M/uL (4.2-5.4); WHITE BLOOD COUNT 5.47 K/uL (4.8-10.8)
== END | disposition home or self-care (01) ==
LOC: C.LABBFT 11:18
PROVIDERS: ATTEND Internal Medicine Hematology & Oncology
DX: D72.819 Decreased white blood cell count, unspecified (principal)

== ENCOUNTER 2017-01-19 10:57 | Observation (INO) | payer OTHER, BC ==
[~2017-01-19] VITALS: Ht 170.2 cm; Wt 53.7 kg
[~2017-01-19 10:57] MED LIST changes: -AMLO2.5T PO; -CALC-456 PO; -CLBCRM30 EXT; -HYDR-5688 PO; -PRLSR20 PO
[2017-01-19] MEDS ORDERED: CALC-456 PO (11:23)
[2017-01-19] MEDS ORDERED: CLBCRM30 EXT (11:23)
[2017-01-19] MEDS ORDERED: PRLSR20 PO (11:23)
[2017-01-19] MEDS ORDERED: LOSA50TA6 PO (11:23)
[2017-01-19 11:24] LABS: ISTAT HEMOGLOBIN 13.3 g/dl (12.0-16.0); ISTAT IONIZED CALCIUM 1.16 mmol/l (1.12-1.32)
[2017-01-19 11:30] LABS: BASO % 0.2 %; BASO ABS # 0.01 K/uL (0-0.2); COMPLETE YES; HEMATOCRIT 36.2 % (37-47); IG% 0.8 %; LYMPH ABS # 1.17 K/uL (1.2-3.4); MEAN CELL VOLUME 89.8 fL (80-100); MEAN CORPUSCULAR HEMOGLOBIN 31.5 pg (25-34); MEAN CORPUSCULAR HGB CONC 35.1 g/dl (32-36); MEAN PLATELET VOLUME 9.9 fL (7.4-10.4); MONO % 6.2 %; NEUT % 67.8 %; PLATELET COUNT 254 K/uL (130-400); RED BLOOD COUNT 4.03 M/uL (4.2-5.4); WHITE BLOOD COUNT 4.87 K/uL (4.8-10.8)
[2017-01-19] MEDS ORDERED: AMLO2.5T PO (11:30)
[2017-01-19 11:37] LABS: BUN/CREATININE RATIO 24.6 (10-20); CALCIUM 9.3 mg/dl (8.5-10.1); CREATININE 1.1 mg/dl (0.60-1.20); POTASSIUM 4.1 mmol/L (3.5-5.1)
[2017-01-19 11:42] LABS: ALB/GLOB RATIO 1.1 (0.9-2)
[2017-01-19 11:46] LABS: INR 1.1 (0.9-1.1); PROTHROMBIN TIME (PATIENT) 11.7 SECONDS (9.0-12.0)
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
[2017-01-19] MEDS ORDERED: OPTIRAY 320 IV PRN (12:00)
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
[2017-01-19] MEDS ORDERED: ONDANSETRON INJ 2 MG/ML 2 ML VIAL IV STA (13:07)
[2017-01-19] MEDS ORDERED: MoRPHine SULFATE 2 MG/ML CARP IV STA (13:07)
[2017-01-19] MEDS ORDERED: ACETAMINOPHEN 325 MG TAB PO PRN (14:30)
[2017-01-19] MEDS ORDERED: NITROGLYCERIN 0.4 MG SL PER TAB CHARGE SL PRN (14:30)
[2017-01-19] MEDS ORDERED: MoRPHine SULFATE 2 MG/ML CARP IV PRN (14:30)
[2017-01-19] MEDS ORDERED: IV FLUIDS COMPLETED PRN (15:15)
--- NOTE | 2017-01-19 16:02 | History and Physical ---
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 concern for occult bowel injury consider short-term CT follow-up. 8. Additional findings as above. Electronically signed by: Paul Blum M.D. 01/19/2017 12:53 PM Dictated Date/Time: 01/19/2017 12:36 PM The status of this report is Signed. Draft = Not yet reviewed or approved by Radiologist. Signed = Reviewed and approved by Radiologist. <AttendingPhy></AttendingPhy> <FamilyPhy>Nicanor Ahmadi M.D.</FamilyPhy > <PrimaryPhy>Nicanor Ahmadi M.D.</PrimaryPhy> <UnitNumber>[id number]</ UnitNumber> <VisitNumber>[id number]</VisitNumber> <PatientName>JADEN DALEY </PatientName> <DateOfBirth>1935</DateOfBirth> <Location>[facility]</Location> <ServiceDate>01/19/17</ServiceDate> <MNE>ESINDI</MNE> <OrderingPhy>Chaitanya Grimm MD</OrderingPhy> <OrderingPhyMNE>f rep ord dr shearer</OrderingPhyMNE> < DictatingPhyMNE>f rep dict dr shearer</DictatingPhyMNE> <CCListMNE>f rep ct janki</ CCListMNE> <AdmittingPhyMNE>f pt admit dr shearer</AdmittingPhyMNE> <AttendingPhyMNE >f pt attend dr shearer</AttendingPhyMNE> <ConsultingPhyMNE>f pt consult dr shearer</ConsultingPhyMNE> <FamilyPhyMNE>f pt fam dr shearer</FamilyPhyMNE> <OtherPhyMNE>f pt other dr shearer</OtherPhyMNE> < PrimaryPhyMNE>f pt prim care dr shearer</PrimaryPhyMNE> <ReferringPhyMNE>f pt referring dr shearer</ReferringPhyMNE> EKG EKG shows sinus bradycardia at 54 bpm, no acute ST-T changes, no change compared to 10/13/2016. Impression Assessment and Plan Comminuted, nondepressed sternal body fracture/right anterior fourth and fifth rib fractures--the patient be admitted to the telemetry unit for observation. We'll follow serial cardiac enzymes, cardiac rhythm monitoring. We'll consult orthopedics and thoracic surgery. We'll have Tylenol 650 mg by mouth every 6 hours when necessary, hydrocodone/APAP 5/325 by mouth every 4 hours when necessary moderate pain, and morphine sulfate 2-4 mg IV every 2 hours when necessary severe pain. Atrial fibrillation/hypertension--continue amlodipine 2.5 mg by mouth daily, flecainide 100 mg by mouth twice a day, losartan 50 mg by mouth daily. We'll hold Eliquis 2.5 mg by mouth twice a day overnight due to sternal fracture. GERD--change omeprazole to pantoprazole for formulary interchange. This Vitamin B12 deficiency--continue 2000 g by mouth every morning supplement. His Increase vitamin D from 1000 to 2000 international units by mouth daily, and calcium from 1 daily to twice a day. Level of Care Telemetry Advanced Directives Existing Advance Directive: No Existing Living Will: No Existing Power of Skatesman: No Resuscitation Status FULL RESUSCITATION VTE Prophylaxis VTE Risk Assessment Done? Y/N: Yes Risk Level: Moderate Given or contraindicated: SCD's
[2017-01-19 16:38] VITALS: BP_SYST 182; BP_SYST 188; BP_DIAS 79; BP_DIAS 81; PULSE 50; TEMP 36.9; O2SAT 99; Ht 170.2 cm; Wt 53.7 kg
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
[2017-01-19] MEDS: HYDROCODONE/ACETAMOPHEN 5/325MG TAB PO PRN (17:23)
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
[2017-01-19 19:35] VITALS: BP 122/64; PULSE 51; TEMP 37.1; O2SAT 97
[2017-01-19 20:00] VITALS: O2SAT 97
[2017-01-19] MEDS: FLECAINIDE ACETATE 100 MG TAB PO SCH (20:54)
[2017-01-19] MEDS: CALCIUM 600MG + VIT D 400 IU TAB PO SCH (20:55)
[2017-01-19 23:31] VITALS: BP 149/70; PULSE 52; TEMP 36.8; O2SAT 98
[2017-01-20] MEDS: HYDROCODONE/ACETAMOPHEN 5/325MG TAB PO PRN ×2 (01:03→08:14)
[2017-01-20 03:48] VITALS: BP 127/62; PULSE 53; TEMP 36.6; O2SAT 98
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
[2017-01-20 07:23] VITALS: BP 127/73; PULSE 52; TEMP 36.9; O2SAT 96
[2017-01-20] MEDS: CALCIUM 600MG + VIT D 400 IU TAB PO SCH (08:15)
[2017-01-20] MEDS: FLECAINIDE ACETATE 100 MG TAB PO SCH (08:15)
[2017-01-20] MEDS ORDERED: TOCOPHERYL, DL-ALPHA 400 INTER.UNIT CAP PO SCH (09:00)
[2017-01-20] MEDS ORDERED: VITAMIN B COMPLEX TAB PO SCH (09:00)
[2017-01-20] MEDS ORDERED: CYANOCOBALAMIN 500 MCG TAB (VIT B-12) PO SCH (09:00)
[2017-01-20] MEDS ORDERED: LOSARTAN POTASSIUM 50 MG TAB PO SCH (09:00)
[2017-01-20] MEDS ORDERED: CHOLECALCIFEROL 1000 INTER.UNIT TAB PO SCH (09:00)
[2017-01-20] MEDS ORDERED: ASCORBIC ACID 500 MG TAB PO SCH (09:00)
[2017-01-20] MEDS ORDERED: AMLODIPINE BESYLATE 5 MG TAB PO SCH (09:00)
[2017-01-20] MEDS ORDERED: PANTOprazole SOD 40 MG TAB PO SCH (09:00)
[2017-01-20] MEDS ORDERED: LACTOBACILLUS ACIDOPHILUS (FLORANEX) TAB PO SCH (09:00)
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
[2017-01-20 11:24] VITALS: PULSE 51
[2017-01-20 11:52] VITALS: BP 144/70; PULSE 45; TEMP 36.7; O2SAT 99
[2017-01-20] MEDS ORDERED: HYDR-5688 PO (12:21)
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
[2017-01-20 13:14] VITALS: BP 144/70; PULSE 45; TEMP 36.7; O2SAT 99
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
== END 2017-01-20 14:50 | disposition home or self-care (01) ==
LOC: EDBD 10:57 → C.EDC 10:58 → C.2T 14:25 → ENRESERV 15:46
PROVIDERS: ADMIT Hospitalist; ATTEND Hospitalist
DX: S22.20XA Unspecified fracture of sternum, initial encounter for closed fracture (principal); S22.41XA Multiple fractures of ribs, right side, initial encounter for closed fracture; S09.90XA Unspecified injury of head, initial encounter; V43.53XA Car driver injured in collision with pick-up truck in traffic accident, initial encounter; Y92.415 Exit ramp or entrance ramp of street or highway as the place of occurrence of the external cause; I48.91 Unspecified atrial fibrillation; E78.00 Pure hypercholesterolemia, unspecified; I10 Essential (primary) hypertension; K21.9 Gastro-esophageal reflux disease without esophagitis; E53.8 Deficiency of other specified B group vitamins; I87.2 Venous insufficiency (chronic) (peripheral); Z79.01 Long term (current) use of anticoagulants; Z79.899 Other long term (current) drug therapy

== ENCOUNTER → 2017-02-09 | Outpatient (CLI) | payer BC, OTHER ==
[~2017-02-09] MED LIST changes: +AMLO2.5T PO; +CALC-456 PO; -CALTRATE PO; +CLBCRM30 EXT; +HYDR-5688 PO; -MINERALS PO; -OXYC-57 PO; +PRLSR20 PO; -[UNRECOGNIZED DRUG - OTHER] PO
[2017-02-09 17:43] LABS: BASO % 0.4 %; BASO ABS # 0.02 K/uL (0-0.2); COMPLETE YES; EOS % 0.8 %; HEMATOCRIT 34.4 % (37-47); IG% 0.4 %; LYMPH % 26.9 %; LYMPH ABS # 1.39 K/uL (1.2-3.4); MEAN CELL VOLUME 91.7 fL (80-100); MEAN CORPUSCULAR HEMOGLOBIN 30.7 pg (25-34); MEAN CORPUSCULAR HGB CONC 33.4 g/dl (32-36); MEAN PLATELET VOLUME 9.9 fL (7.4-10.4); MONO % 10.6 %; NEUT % 60.9 %; PLATELET COUNT 314 K/uL (130-400); RED BLOOD COUNT 3.75 M/uL (4.2-5.4); WHITE BLOOD COUNT 5.17 K/uL (4.8-10.8)
== END | disposition home or self-care (01) ==
LOC: C.LABBFT 10:04
PROVIDERS: ATTEND Internal Medicine Hematology & Oncology
DX: D72.819 Decreased white blood cell count, unspecified (principal)

== ENCOUNTER → 2017-02-09 | Outpatient (CLI) | payer BC, OTHER ==
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
== END | disposition home or self-care (01) ==
LOC: C.RAD 14:03
PROVIDERS: ATTEND Surgery
DX: S22.20XA Unspecified fracture of sternum, initial encounter for closed fracture (principal); X58.XXXA Exposure to other specified factors, initial encounter

== ENCOUNTER → 2017-03-07 | Outpatient (CLI) | payer BC ==
--- NOTE | 2017-03-07 10:44 | DIAGNOSTIC IMAGING REPORT ---
GI SERIES W/AIR ROUTINE CLINICAL HISTORY: 81-year-old female with history of gastroesophageal reflux, weight loss. COMPARISON STUDY: Correlation made to CT chest from 01/19/2017. TECHNIQUE: A standard air contrast upper GI series was performed. Spot images of the esophagus and stomach were obtained in multiple obliquities both upright and prone. FINDINGS: The patient swallowed barium without difficulty. The esophagus is structurally normal without evidence of intrinsic or extrinsic mass. The esophageal mucosal pattern is normal. Tertiary contractions noted consistent with dysmotility. No gastroesophageal reflux was elicited by having the patient perform the Valsalva maneuver. The gastroesophageal junction distends normally. The stomach is normal in configuration and demonstrates normal distensibility. No mass or ulceration is identified. There was no evidence of gastritis. The duodenal bulb and sweep are unremarkable. Fluoroscopy dosage (mGy): Not available. Fluoroscopy time: 2.6 minutes. Number of fluoroscopic spot images: 22. IMPRESSION: 1. 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 2. No observed gastroesophageal reflux or obstructing mass. Electronically signed by: Moiz Cheek M.D. 03/07/2017 10:43 AM Dictated Date/Time: 03/07/2017 10:41 AM
== END | disposition home or self-care (01) ==
LOC: C.RAD 09:31
PROVIDERS: ATTEND Registered Nurse
DX: K21.9 Gastro-esophageal reflux disease without esophagitis (principal); R63.0 Anorexia; R63.4 Abnormal weight loss; R11.0 Nausea

== ENCOUNTER → 2017-04-14 | Outpatient (CLI) | payer BC ==
[2017-04-14 12:07] LABS: HEMATOCRIT 36.9 % (37-47); MEAN CELL VOLUME 90.4 fL (80-100); MEAN CORPUSCULAR HEMOGLOBIN 31.6 pg (25-34); MEAN PLATELET VOLUME 10.3 fL (7.4-10.4); PLATELET COUNT 238 K/uL (130-400); RED BLOOD COUNT 4.08 M/uL (4.2-5.4); WHITE BLOOD COUNT 3.93 K/uL (4.8-10.8)
[2017-04-14 12:21] LABS: ALT/SGPT 26 U/L (12-78); BLOOD UREA NITROGEN 22 mg/dl (7-18); CALCIUM 9.4 mg/dl (8.5-10.1); CARBON DIOXIDE 31 mmol/L (21-32); CHLORIDE 103 mmol/L (98-107); CREATININE 0.98 mg/dl (0.60-1.20); GLUCOSE 115 mg/dl (70-99); POTASSIUM 4.1 mmol/L (3.5-5.1); SODIUM 138 mmol/L (136-145)
[2017-04-14 12:31] LABS: ALB/GLOB RATIO 1.1 (0.9-2); ALKALINE PHOSPHATASE 85 U/L (45-117); AST/SGOT 26 U/L (15-37)
--- NOTE | 2017-04-25 11:05 | CODING QUERY MEDICAL NECESSITY ---
CQSUPPORTING DIAGNOSIS NEEDED A supporting diagnosis is required for the test/procedure performed on this patient in order for us to be reimbursed by the patient's insurance. Please provide a supporting diagnosis for the following test/procedure listed below next to the test name along with your signature. *If there is no additional diagnosis for this patient that would support the following test/procedure please document that below next to the test/procedure. Test(s)/Procedure(s) that require a supporting diagnosis: DOS 04/14/17 VITAMIN D TEST ORDERED BY DARIA HUYNH Provider Signature: Date: Thank you Merlyn Quintanilla Health Information Management Once completed, please kindly fax back to [phone] For questions please call [phone]
== END | disposition home or self-care (01) ==
LOC: C.LABBFT 09:59
PROVIDERS: ATTEND Physician Assistant Medical
DX: R53.83 Other fatigue (principal); M81.0 Age-related osteoporosis without current pathological fracture

== ENCOUNTER → 2017-05-27 | Outpatient (CLI) | payer BC ==
--- NOTE | 2017-05-27 12:03 | DIAGNOSTIC IMAGING REPORT ---
SI JOINTS 3 OR MORE VIEWS CLINICAL HISTORY: M54.5 Low back [id number] COMPARISON STUDY: Abdomen and pelvis CT 01/19/2017. FINDINGS: Mild sclerosis at the bilateral sacroiliac joints and small marginal osteophytes consistent with degenerative change. The sacrum appears intact. No erosions within the sacroiliac joints. Levoscoliosis and degenerative changes within the lumbar spine. IMPRESSION: Mild bilateral sacroiliac joint osteoarthritis. Electronically signed by: Darwin Vela M.D. 05/27/2017 12:02 PM Dictated Date/Time: 05/27/2017 12:01 PM
--- NOTE | 2017-05-27 12:18 | DIAGNOSTIC IMAGING REPORT ---
L-SPINE MIN 4 VIEWS ROUTINE CLINICAL HISTORY: Low back pain. COMPARISON: Lumbar spine radiographs January 23, 2016. FINDINGS: Moderate levoscoliosis of the lumbar spine has not significantly changed. No fracture or suspicious lesion is identified by radiography. There is moderate multilevel disc space narrowing with osteophytosis and vacuum disc phenomenon. Sacroiliac joints are intact. There is moderate multilevel facet arthrosis. IMPRESSION: 1. Moderate levoscoliosis of the lumbar spine. 2. Moderate multilevel degenerative disc disease and facet arthrosis of the lumbar spine. 3. No fracture identified. Electronically signed by: Dexter Klein M.D. 05/27/2017 12:17 PM Dictated Date/Time: 05/27/2017 12:11 PM
== END | disposition home or self-care (01) ==
LOC: C.RAD1850 11:35
PROVIDERS: ATTEND Internal Medicine
DX: M54.5 Low back pain (principal)

== ENCOUNTER → 2017-08-18 | Outpatient (CLI) | payer BC | END | disposition home or self-care (01) | LOC: C.PATHSPEC 17:26 | PROVIDERS: ATTEND Surgery | DX: L82.0 Inflamed seborrheic keratosis (principal) ==

== ENCOUNTER → 2017-08-24 | Outpatient (CLI) | payer BC ==
--- NOTE | 2017-08-24 15:32 | MAMMOGRAPHY REPORT ---
BILATERAL DIGITAL SCREENING MAMMOGRAM TOMOSYNTHESIS WITH CAD: 08/24/2017 TECHNIQUE: Breast tomosynthesis in addition to standard 2D mammography was performed. Current study was also evaluated with a Computer Aided Detection (CAD) system. COMPARISON: Comparison is made to exams dated: 07/30/2016 mammogram, 07/28/2015 mammogram, 4 mammogram, 07/23/2013 mammogram, 11/23/2012 ultrasound, and 11/23/2012 mammogram - [facility]. BREAST COMPOSITION: The tissue of both breasts is heterogeneously dense, which may obscure small mas ses. FINDINGS: No suspicious masses, calcifications, or areas of architectural distortion are noted in ei ther breast. There has been no significant interval change compared to prior exams. A small mass and associated biopsy marker clip in the right upper outer quadrant is stable. IMPRESSION: ACR BI-RADS CATEGORY 2: BENIGN There is no mammographic evidence of malignancy. A 1 year screening mammogram is recommended. The pa tient will receive written notification of the results. Approximately 10% of breast cancers are not detected with mammography. A negative mammographic report should not delay biopsy if a clinically suggestive mass is present. Katheryn Barbosa M.D. /:08/24/2017 14:32:17 Finisher Polisher: Rosangela ORR(Yola)(Danielle), [facility] letter sent: Normal 1/2 BI-RADS Code: ACR BI-RADS Category 2: Benign
== END | disposition home or self-care (01) ==
LOC: C.MAMM 13:52
PROVIDERS: ATTEND Internal Medicine
DX: Z12.31 Encounter for screening mammogram for malignant neoplasm of breast (principal)

== ENCOUNTER → 2017-09-20 | Outpatient (CLI) | payer BC ==
[2017-09-20 13:26] LABS: BASO % 0.3 %; BASO ABS # 0.01 K/uL (0-0.2); EOS % 2.1 %; EOS ABS # 0.08 K/uL (0-0.5); HEMATOCRIT 37.4 % (37-47); HEMOGLOBIN 12.7 g/dL (12.0-16.0); LYMPH ABS # 1.32 K/uL (1.2-3.4); MEAN CELL VOLUME 91.2 fL (80-100); MEAN PLATELET VOLUME 10.6 fL (7.4-10.4); MONO % 10.6 %; NEUT ABS # 1.96 K/uL (1.4-6.5); PLATELET COUNT 223 K/uL (130-400); RED CELL DISTRIBUTION WIDTH CV 13.7 % (11.5-14.5); WHITE BLOOD COUNT 3.77 K/uL (4.8-10.8)
== END | disposition home or self-care (01) ==
LOC: C.LABBFT 08:54
PROVIDERS: ATTEND Internal Medicine
DX: R73.03 Prediabetes (principal); D64.9 Anemia, unspecified

== ENCOUNTER 2017-10-21 11:14 | Emergency (ER) | payer BC ==
[~2017-10-21] VITALS: Ht 167.6 cm; Wt 56.0 kg
[2017-10-21 11:20] VITALS: TEMP 36.8; Ht 167.6 cm; Wt 56.0 kg
--- NOTE | 2017-10-21 12:16 | EMERGENCY ROOM VISIT NOTE ---
History Report prepared by Stanley: Katheryn Fuentes Under the Supervision of: Dr. Hira Sullivan M.D. First contact with patient: 11:34 Chief Complaint: HYPERTENSION Stated Complaint: HIGH BLOOD PRESSURE History of Present Illness The patient is a 81 year old female who presents to the Emergency Room with complaints of an episode of hypertension beginning this morning. She denies any chest pain, cough, palpitations, difficulty breathing, headache, or blood in stool or urine. The patient states she has been taking her medications as prescribed. The patient denies any recent travel. 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 She states that this stress was keeping her to stay up at night, and when she checked her blood pressure this morning was elevated. The patient has a history of atrial fibrillation. Source of History: patient Onset: this morning Position: other (generalized) Quality: other (hypertension) Timing: other (episode) Associated Symptoms: No headache, No cough, No chest pain, No SOB, No urinary symptoms Review of Systems See HPI for pertinent positives and negatives. A total of ten systems were reviewed and were otherwise negative. Past Medical & Surgical Medical Problems: (1) Atrial fibrillation (2) Chronic anticoagulation (3) High cholesterol (4) Sternal fracture Family History Cancer Social History Smoking Status: Never Smoker Drug Use: none Marital Status: Housing Status: lives with significant other Occupation Status: retired Current/Historical Medications Scheduled Amlodipine (Norvasc), 2.5 MG PO QAM Apixaban (Eliquis), 2.5 MG PO BID Ascorbic Acid (Vitamin C), 500 MG PO QAM B-Complex W/ Folic Acid (Super B Complex Maxi), 1 TAB PO QAM Calcium Carbonate-Vitamin D W/ (Caltrate 600+D Plus Min 300-800 mg-Unit), 1 TAB PO QAM Cholecalciferol (Vitamin D), 2,000 MG PO QAM Choline (Phosphatidyl Choline), 1 TAB PO QAM Clobetasol Propionate (Clobetasol Propionate Cream 0.05%), 1 APPLN EXT WK Coenzyme Q10 (Ubidecarenone) (Co-Enzyme Q10), 200 MG PO BID Cyanocobalamin (Vitamin B-12), 2,000 MCG PO QAM Flaxseed (Linseed) (Flax Seed Oil), 1,000 MG PO QAM Flecainide Acetate (Flecainide Acetate), 100 MG PO BID Omeprazole (Prilosec), 20 MG PO QAM Probiotic Product (Probiotic), 1 TAB PO QAM Vitamin E (E-400), 400 UNIT PO QAM Zinc Gluconate (Zinc), 10 MG PO 3XWK [Intenzyme Forte], 1 TAB PO BID [Neuroven], 1 TAB PO QAM [Restores + Ad], 1 TAB PO QAM [[place] Gestaid], 2 TABS PO TIDM Scheduled PRN Acetaminophen (Tylenol), 500 MG PO Q8 PRN for Pain Allergies Coded Allergies: Simvastatin (Verified Allergy, Unknown, MUSCLE WEAKNESS, 10/21/17) Cephalexin (Verified Adverse Reaction, Mild, STOMACH UPSET, 10/21/17) Physical Exam Vital Signs Date Time Temp Pulse Resp B/P (MAP) Pulse Ox O2 Delivery O2 Flow Rate FiO2 10/21/17 12:52 63 18 182/83 98 10/21/17 12:34 162/65 10/21/17 11:20 36.8 64 16 190/86 98 Room Air Physical Exam Physical Exam GENERAL: She is oriented to person, place, and time. She appears well- developed and well-nourished. She does not appear distressed.She is laughing, not reporting any symptoms ____ HENT: Exam performed. Head: Normocephalic and atraumatic. Right Ear: External ear normal. No mastoid tenderness. Left Ear: External ear normal. No mastoid tenderness. Mouth/Throat: The oropharynx is clear and moist. No trismus in the jaw. No dental abscesses or uvula swelling. No oropharyngeal exudate or tonsillar abscesses. ____ EYES: Conjunctivae and EOM are normal. Pupils are equal, round, and reactive to light. Right eye exhibits no discharge. Left eye exhibits no discharge. No scleral icterus. ____ NECK: Normal range of motion. Neck supple. No JVD present. No spinous process tenderness present. No carotid bruit present. No rigidity. No tracheal deviation and normal range of motion present. No Brudzinski's sign and no Kernig 's sign noted. ____ CV: Normal rate, irregular rhythm, normal heart sounds and intact distal pulses. There is no peripheral edema. Palpable radial pulses bue. ____ PULM/CHEST: Effort normal and breath sounds normal. No respiratory distress. No stridor. She has no wheezes. She has no rales. Chest Wall: She exhibits no tenderness. ____ ABD: The abdomen is soft. Bowel sounds are normal. She has no distension. No mass is present. There is no tenderness. There is no rebound, no guarding, no Chopra's sign and no tenderness at McBurney's point. Rovsig negative MUSC/SKEL: Normal range of motion. There is no peripheral edema, tenderness or deformity. LYMPH: No cervical adenopathy. ____ NEURO: She is alert and oriented to person, place, and time. She has normal strength. No cranial nerve deficit or sensory deficit. Coordination and gait normal. GCS eye subscore is 4. GCS verbal subscore is 5. GCS motor subscore is 6. Cerebellar tests wnl. ____ SKIN: Skin is warm and dry. She is not diaphoretic. ____ PSYCH: SHe has a normal mood and affect. Her behavior is normal. Judgment and thought content normal. ____ Medical Decision & Procedures Laboratory Results Test 10/21/17 12:19 10/21/17 12:21 Bedside Troponin I < 0.030 ng/ml (0-0.045) Bedside Hemoglobin 12.2 g/dl (12.0-16.0) Bedside Hematocrit 36 % (37-47) Bedside Sodium 140 mEq/L (135-144) Bedside Potassium 3.9 mEq/L (3.3-5.0) Bedside Chloride 101 mEq/L (101-112) Bedside Total CO2 26 mEq/l (24-31) Anion Gap 17.0 mmol/L (16-25) Bedside Blood Urea Nitrogen 24 mg/dl (7-18) Bedside Creatinine 1.0 mg/dl (0.6-1.3) Bedside Glucose (other) 121 mg/dl (70-99) Bedside Ionized Calcium (Sandra) 1.20 mmol/l (1.12-1.32) Laboratory results reviewed by me ECG Per My Interpretation Indication: other (hypertension) Rate (beats per minute): 54 Rhythm: sinus bradycardia Findings: other (WI 232, QRS and QTC within normal limits, no ST elevation or ST depression) Comparison ECG Date: 01/20/2017 Change: no significant change ED Course 1151: The patient was evaluated in room C11B. A complete history and physical exam was performed. 1240: Blood pressure 182/83. EKG and labs within normal limits. Patient reports being asymptomatic, no headache no chest pain or changes in vision or difficulty breathing.. DISCHARGE - Plan of care discussed with patient and questions answered. The patient was given both verbal and printed discharge instructions. The patient verbalized understanding and ability to comply. The patient is to seek outpatient follow up as noted in the discharge instructions. The patient verbalized understanding and ability to comply. The patient is discharged in stable condition. The patient was instructed to return for worsening symptoms. Medical Decision 1240: Blood pressure 182/83. EKG and labs within normal limits. Patient reports being asymptomatic, no headache no chest pain or changes in vision or difficulty breathing.. DISCHARGE - Plan of care discussed with patient and questions answered. The patient was given both verbal and printed discharge instructions. The patient verbalized understanding and ability to comply. The patient is to seek outpatient follow up as noted in the discharge instructions. The patient verbalized understanding and ability to comply. The patient is discharged in stable condition. The patient was instructed to return for worsening symptoms. Medication Reconcilliation Current Medication List: was personally reviewed by me Blood Pressure Screening Patient's blood pressure: Elevated blood pressure Blood pressure disposition: Referred to PCP Impression Primary Impression: Hypertension Additional Impression: Anxiety Scribe Attestation The scribe's documentation has been prepared under my direction and personally reviewed by me in its entirety. I confirm that the note above accurately reflects all work, treatment, procedures, and medical decision making performed by me. The chart was completed utilizing [employer] Speech voice recognition software. Grammatical errors, random word insertions, pronoun errors, and incomplete sentences are an occasional consequence of this system due to software limitations, ambient noise, and hardware issues. Any formal questions or concerns about the content, text, or information contained within the body of this dictation should be directly addressed to the physician for clarification. Departure Information Dispostion Home / Self-Care Referrals Nicanor Ahmadi M.D. (PCP) Forms HOME CARE DOCUMENTATION FORM, IMPORTANT VISIT INFORMATION, WORK / SCHOOL INSTRUCTIONS Patient Instructions ED Hypertension Poss, Hypertension Control, My [facility], Stress Cardiovascular Health Problem Qualifiers Primary Impression: Hypertension Hypertension type: unspecified Qualified Codes: I10 - Essential (primary) hypertension
[2017-10-21] MEDS ORDERED: [UNRECOGNIZED DRUG - OTHER] PO (12:25)
[2017-10-21 12:33] LABS: ISTAT IONIZED CALCIUM 1.2 mmol/l (1.12-1.32); ISTAT POTASSIUM 3.9 mEq/L (3.3-5.0)
[2017-10-21 12:52] VITALS: BP 182/83; PULSE 63; O2SAT 98
== END 2017-10-21 12:53 | disposition home or self-care (01) ==
LOC: C.EDB 11:16 → C.EDC 12:53
DX: I10 Essential (primary) hypertension (principal); F41.9 Anxiety disorder, unspecified; I48.91 Unspecified atrial fibrillation; E78.00 Pure hypercholesterolemia, unspecified; Z80.9 Family history of malignant neoplasm, unspecified; Z79.01 Long term (current) use of anticoagulants; Z79.899 Other long term (current) drug therapy; Z88.1 Allergy status to other antibiotic agents; Z88.8 Allergy status to other drugs, medicaments and biological substances

== ENCOUNTER 2022-07-01 14:10 | Inpatient (IN) ==
[2022-07-01] MEDS ORDERED: METOPROLOL TARTRATE 1 MG/ML VIAL IV PRN ×2 (14:34→16:21)
[2022-07-01] MEDS ORDERED: ASPIRIN CHEW 324 MG PO STA (14:35)
[2022-07-01] MEDS ORDERED: SODIUM CHLORIDE 0.9% 500 ML IV ONE (14:35)
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
[2022-07-01 15:09] LABS: Basophils # (auto) 0.03 K/uL (0-0.2); Basophils % (auto) 0.3 %; Eosinophils # (auto) 0.05 K/uL (0-0.50); Eosinophils % (auto) 0.6 %; Hematocrit (blood only) 36.9 % (34.1-44.9); Hemoglobin 12.5 g/dl (12.0-16.0); Immature Granulocytes # (auto) 0.03 K/uL (0.00-0.02); Immature Granulocytes % (auto) 0.3 %; Lymphocytes # (auto) 1.06 K/uL (1.2-3.4); Lymphocytes % (auto) 12.3 %; Mean Corpuscular Hgb Conc 33.9 g/dL (32.0-36.0); Mean Corpuscular Volume 88.5 fL (80.0-100.0); Mean Platelet Volume 10.3 fL (9.4-12.3); Monocytes # (auto) 0.78 K/uL (0.24-0.82); Neutrophils % (auto) 77.5 %; Platelet Count 205 K/uL (130-400); RDW Coefficient of Variation 14.2 % (11.5-14.5); RDW Standard Deviation 45.7 fL (36.4-46.3); Red Blood Count 4.17 M/uL (3.93-5.22); White Blood Count 8.65 K/ul (4.8-10.8)
--- NOTE | 2022-07-01 15:10 | XRay Report ---
SINGLE VIEW CHEST CLINICAL HISTORY: Atypical chest pain. Cough FINDINGS: An AP, portable, upright chest radiograph is compared to study dated 12/29/2021 and correlat ed with chest CT dated 01/19/2017. The heart is enlarged noting atherosclerotic calcification of the th oracic aorta. The pulmonary vasculature is noncongested. Chronic interstitial thickening is previous. There is bibasilar scarring/atelectasis. The lungs and pleural spaces are otherwise clear. No pneumo thorax is seen. The skeletal structures are osteopenic. The bony thorax is grossly intact. Degenerati ve change and scoliosis is noted in the thoracic spine. IMPRESSION: Cardiomegaly with no acute cardiopulmonary abnormality identified. ACT 112: Negative or not required by law. Electronically signed by: Paul Blum M.D. 07/01/2022 3:09 PM
[2022-07-01 15:26] LABS: Alanine Aminotransferase 22 U/L (7-52); Albumin Globulin Ratio 1.6 (0.9-2); Albumin Level 4.2 gm/dl (3.4-5.0); Alkaline Phosphatase 86 U/L (34-104); Anion Gap 8 (3-11); Aspartate Aminotransferase 26 U/L (13-39); Bilirubin,Total 0.6 mg/dl (0.2-1.0); Blood Urea Nitrogen 24 mg/dl (6-23); Carbon Dioxide 26 mmol/L (21-32); Chloride 102 mmol/L (98-107); Est GFR (Non-African American) 46.6 ml/min; Globulin 2.7 gm/dl (2.5-4.0); Glucose 107 mg/dl (70-99(Fasting)); Lipase 36 U/L (11-82); Potassium 3.7 mmol/L (3.5-5.1); Sodium 136 mmol/L (136-145); Total Protein 6.9 gm/dl (6.0-8.3); Troponin I High Sensitivity 16.9 pg/ml (0-14)
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
--- NOTE | 2022-07-01 18:02 | Electrocardiogram Report ---
Test Reason : Blood Pressure : / mmHG Vent. Rate : 113 BPM Atrial Rate : 122 BPM P-R Int : 000 ms QRS Dur : 072 ms QT Int : 334 ms P-R-T Axes : 000 022 017 degrees QTc Int : 458 ms Poor data quality, interpretation may be adversely affected Atrial fibrillation with rapid ventricular response Diffuse Minor Nonspecific T wave abnormality Abnormal ECG When compared with ECG of 21-OCT-2017 12:09, Atrial fibrillation has replaced Sinus rhythm Vent. rate has increased BY 59 BPM Nonspecific T wave abnormality now evident in Anterior leads Confirmed by Derrick Gonzalez ([id number]) on 07/01/2022 6:02:21 PM Referred By: Soy Ahmadi Confirmed By:Derrick Gonzalez
[2022-07-01] MEDS ORDERED: CLOTRIMAZOLE VAGINAL CR 7 APPLN/45 GM TUBE PV PRN (19:27)
[2022-07-01] MEDS ORDERED: ARTIFICIAL TEARS OP PRN (19:33)
[2022-07-01] MEDS: APIXABAN 2.5 MG TAB PO SCH (20:32)
[2022-07-01] MEDS: PANTOprazole 40 MG TAB PO SCH (20:34)
[2022-07-01] MEDS ORDERED: MIRTAZAPINE TAB 15 MG TAB PO SCH (21:00)
[2022-07-01] MEDS: METOPROLOL TARTRATE 25 MG TAB PO SCH (22:24)
[2022-07-02] MEDS ORDERED: ALENDRONATE SODIUM 70 MG TAB PO SCH (07:00)
--- NOTE | 2022-07-02 08:28 | Hospitalist Progress Note ---
Date of Service July 02, 2022 Assessment & Plan (1) Atrial fibrillation with RVR: Plan: -Admitted to [facility] tele -Patient is currently afebrile, hemodynamically stable, and stable on RA -HR now controlled after receiving 5 mg IV lopressor in the ED -No electrolyte abnormalities, TSH WNL, afib rvr likely due to patient recently being taken off flecanide in April -Cardiology consulted, appreciate their help, recs below: >Agree with focus on reducing cardiac demand by controlling ventricular rate, she received a dose of IV metoprolol in the ER, would recommend starting metoprolol tartrate 25 mg p.o. twice daily with upward titration should her rate require. >She is chronically anticoagulated with apixaban, given age greater than 82 and weight less than 60 kg would recommend she be continued on low-dose regimen of apixaban 2.5 mg twice daily. >She usually takes amlodipine 5 mg for hypertension, but since she will be receiving metoprolol could hold amlodipine for now while monitoring her hemodynamics overnight. Depending upon BP, this could be restarted at 5 mg or reduce to 2.5 mg daily. >Do not believe this is an acute thrombotic event, would not utilize any further aspirin since she is anticoagulated with apixaban, no role for heparin. >If she has no further chest discomfort or enzyme elevation, conservative management of her presumed coronary artery disease is quite reasonable. >Cardiology follow-up should be with Dr. Gifford within 2 to 4 weeks after discharge to reassess rate control. -Cardiology recommendations ordered, also ordered prn IV lopressor for HR > 120 -Continue eliquis -Repeat trop trending down -Continue to monitor on tele (2) Hypertension: Plan: -Hold amlodipine for now while patient is started on PO metoprolol (3) Gastroesophageal reflux disease: Plan: -Will add on pantoprazole for stress ulcer prophylaxis (4) Insomnia: Plan: -Continue HS remeron (5) Osteoporosis: Plan: -Continue weekly Fosfomax -Calcium stable at 9.0 (6) Senile dementia of Alzheimer's type: Plan: -Continue Namenda Plan The patient was discussed with Dr. Henderson at the time of the admission Admission and Anticipated Discharge Date Admission Date: July 01, 2022 Results & Data Results & Data ([facility]) Vital Signs (Past 12 Hours) Vital Signs Temp Pulse Pulse Resp BP BP Pulse Ox 11/18/22 07:54 37.0 C 77 18 130/72 96 07/02/22 04:00 36.7 C 82 18 126/71 96 07/01/22 23:00 36.7 C 100 H 18 130/68 95 07/01/22 23:29 79 07/01/22 22:14 95 H 07/01/22 21:29 36.6 C 77 18 149/95 H 97 O2 Del Method 07/02/22 07:54 Room Air 07/02/22 04:00 Room Air 07/01/22 23:00 Room Air 07/01/22 23:29 07/01/22 22:14 07/01/22 21:29 Room Air PG Care Time/CCT Total # of Minutes Spent Total Time Spent with Patient: Total time spent is greater than 50% in coordination of care (as documented) at patient's floor/unit and/or counseling patient: Coding Diagnoses Atrial fibrillation with RVR I48.91 Hypertension I10 Gastroesophageal reflux disease K21.9 Insomnia G47.00 Osteoporosis M81.0 Senile dementia of Alzheimer's type G30.1; F02.80
[2022-07-02 08:37] LABS: Hematocrit (blood only) 36.9 % (34.1-44.9); Hemoglobin 12.5 g/dl (12.0-16.0); Mean Corpuscular Hemoglobin 30.1 pg (25.0-34.0); Mean Corpuscular Hgb Conc 33.9 g/dL (32.0-36.0); Mean Corpuscular Volume 88.9 fL (80.0-100.0); Mean Platelet Volume 10.2 fL (9.4-12.3); Platelet Count 212 K/uL (130-400); RDW Coefficient of Variation 13.9 % (11.5-14.5); RDW Standard Deviation 45.4 fL (36.4-46.3); Red Blood Count 4.15 M/uL (3.93-5.22); White Blood Count 4.43 K/ul (4.8-10.8)
[2022-07-02] MEDS: PANTOprazole 40 MG TAB PO SCH (08:47)
[2022-07-02] MEDS: APIXABAN 2.5 MG TAB PO SCH (08:47)
[2022-07-02 08:57] LABS: BUN Creatinine Ratio 21.1 (10-20); Calcium 8.7 mg/dl (8.5-10.1); Creatinine Clr Calc Pharmacy 41.6 ml/min; Est GFR (African American) 68.1 ml/min; Est GFR (Non-African American) 58.7 ml/min
[2022-07-02] MEDS ORDERED: PEDIATRIC MULTIVITAMIN PO SCH (09:00)
[2022-07-02] MEDS ORDERED: CEROVITE ADV FORMULA TAB PO SCH (09:00)
[2022-07-02] MEDS ORDERED: MEMANTINE HCL 5 MG TAB PO SCH (09:00)
--- NOTE | 2022-07-02 09:21 | Cardiology Progress Note ---
Date of Service July 02, 2022 Assessment & Plan (1) Atrial fibrillation with rapid ventricular response: (2) Chronic anticoagulation: (3) Elevated troponin: (4) Mitral regurgitation: Plan 1. Atrial fibrillation: Her rate was elevated during what is probably permanent atrial fibrillation, probably due to discontinuation of flecainide. Now with the addition of metoprolol at relatively low dose her rate is quite good. I think the current rate is acceptable and I would continue low-dose metoprolol. 2. Anticoagulation: She does need to remain on anticoagulation, she is on Eliquis at a reduced dose which is correct based on her age and weight. I would continue it. 3. Elevated troponin: Her troponin was minimally elevated on presentation, probably due to rate. I would not pursue further evaluation. 4. Mitral regurgitation: This is not severe, I would not pursue further evaluation. From my standpoint she can go home on her current heart rate and blood pressure control regimen. Admission and Anticipated Discharge Date Admission Date: July 01, 2022 Subjective Chart reviewed and patient examined. In brief this is an 86-year-old woman with persistent or permanent atrial fibrillation as well as moderate mitral regurgitation and hypertension who presents from an assisted living facility for intermittent chest discomfort and mild tachycardia. She is not a good historian. On presentation her heart rate was elevated to 113 bpm on ECG July 01, 2022 at 1418, troponin measurements x2 are minimally elevated (16.9 and 14.9) c onsistent with mild demand ischemia. The heart rate was controlled with intravenous metoprolol tartrate. Her outpatient regimen consists of no AV luis blocking medications with amlodipine for hypertension, however she was on flecainide until May 05, 2022 with good rate control, at that time flecainide was discontinued due to the presence of what appeared to be permanent atrial fibrillation. That may be the reason for her increased heart rate. Here she was placed on metoprolol tartrate 25 mg twice a day and amlodipine was discontinued. She remains on Eliquis 2.5 mg twice a day, she is on a reduced dose due to age and weight. She is feeling well today, she has no awareness of her heart rhythm and denies palpitations. She is sitting in bed and has no complaints. Physical Exam Physical Exam: Constitutional: Alert, cooperative and in no distress. Pulmonary: Crackles at bases on auscultation bilaterally. Cardiac: Irregular rhythm with a grade 2/6 holosystolic murmur at the apex, no gallop or rub. Abdomen: Soft, nontender with normal bowel sounds. Extremities: No edema. Skin: No rash, ecchymoses or petechiae. Results & Data ([facility]) Vital Signs (Past 12 Hours) Vital Signs Temp Pulse Pulse Resp BP BP Pulse Ox 07/02/22 07:54 37.0 C 77 18 130/72 96 07/02/22 04:00 36.7 C 82 18 126/71 96 07/01/22 23:00 36.7 C 100 H 18 130/68 95 07/01/22 23:29 79 07/01/22 22:14 95 H 07/01/22 21:29 36.6 C 77 18 149/95 H 97 O2 Del Method 07/02/22 07:54 Room Air 07/02/22 04:00 Room Air 07/01/22 23:00 Room Air 07/01/22 23:29 07/01/22 22:14 07/01/22 21:29 Room Air Laboratory Results Cardiac Enzymes 07/01/22 07/01/22 Range/Units 14:30 16:15 AST 26 (13-39) U/L Troponin I High Sens 16.9 H 14.9 H (0-14) pg/ml CBC 07/01/22 07/02/22 Range/Units 14:30 08:19 WBC 8.65 4.43 L (4.8-10.8) K/ul RBC 4.17 4.15 (3.93-5.22) M/uL Hgb 12.5 12.5 (12.0-16.0) g/dl Hct 36.9 36.9 (34.1-44.9) % Plt Count 205 212 (130-400) K/uL Neut # (Auto) 6.70 H (1.4-6.5) K/uL Lymph # (Auto) 1.06 L (1.2-3.4) K/uL [place] # (Auto) 0.78 (0.24-0.82) K/uL Eos # (Auto) 0.05 (0-0.50) K/uL Baso # (Auto) 0.03 (0-0.2) K/uL Comprehensive Metabolic Panel 07/01/22 07/02/22 Range/Units 14:30 08:19 Sodium 136 137 (136-145) mmol/L Potassium 3.7 4.0 (3.5-5.1) mmol/L Chloride 102 104 (98-107) mmol/L Carbon Dioxide 26 28 (21-32) mmol/L BUN 24 H 19 (6-23) mg/dl Creatinine 1.09 0.90 (0.6-1.2) mg/dl Glucose 107 H 112 H (70-99(Fasting)) mg/dl Calcium 9.0 8.7 (8.5-10.1) mg/dl AST 26 (13-39) U/L ALT 22 (7-52) U/L Alkaline Phosphatase 86 (34-104) U/L Total Protein 6.9 (6.0-8.3) gm/dl Albumin 4.2 (3.4-5.0) gm/dl Intake and Output 07/01/22 07/02/22 07/02/22 22:59 06:59 14:59 Intake Total 500 / 500 Balance 500 / 500 Intake: IV 500 / 500 Sodium Chloride 0.9% 500 ml @ 500 / 500 999 mls/hr IV .Q31M ONE Rx#: [id number] Other: Other Intake Source NPO # Unmeasured Voids 1 Weight 56.6 kg 56.6 kg Weight Measurement Method Standing Scale Standing Scale Diagnostic Findings Telemetry: Atrial fibrillation, heart rate ranging between 80-100 today, reduced from admission PG Care Time/CCT Total # of Minutes Spent Total Time Spent with Patient: Total time spent is greater than 50% in coordination of care (as documented) at patient's floor/unit and/or counseling patient: Coding Level of Care Code 73497 Subseq Hosp Care Lvl 3 Diagnoses Atrial fibrillation with rapid ventricular response I48.91 Chronic anticoagulation Z79.01 Elevated troponin R77.8 Mitral regurgitation I34.0
[2022-07-02] MEDS: METOPROLOL TARTRATE 25 MG TAB PO SCH (10:51)
[2022-07-02 12:00] VITALS: PULSE 73; TEMP 97.9; O2SAT 97
--- NOTE | 2022-07-02 13:55 | Discharge Summary ---
Date of Service July 02, 2022 Admission HPI Per Admitting Provider Chitra Hernadez is an 86 year old female with a PMH significant for Afib on eliquis, Dementia, HTN, depression, GERD, hyperlipidemia, insomnia, peripheral neuropathy, tremor, who presented to the [facility] ED on 07/01/22 with a chief complaint of chest pain. In the ED the patient was found to be afebrile, hemodynamically stable, stable on RA, but tachycardic. ECG showed afib RVR. Labs were remarkable for WBC WNL, stable Hgb at 12.5, stable renal function, sodium, potassium, and calcium WNL, high sensitivity troponin at 16.9. Chest xray showed "Cardiomegaly with no acute cardiopulmonary abnormality identified.". The patient was given 1L NSS bolus, 324 mg aspirin, and one dose of 5mg IV Lopressor. At the time of the exam the patient was resting comfortably in bed with her Son and CHEYENNE Hernadez sitting bedside. History was obtained from the patient and her son. She states that she started developing substernal chest pressure/pain yesterday. She is unsure exactly when the pressure started and stated that she was doing her everyday ADL's when it began. She denies radiation of her pain and states that since receiving Lopressor and control of her heart rate her pain has resolved. She denies recent fever, chills, headache, changes in vision, hearing, taste, and smell, SOB, cough, abdominal pain, nausea, vomiting, diarrhea, dysuria, hematuria, and recent falls. Per chart review, the patient was last seen in the [facility] on 05/05/22 for follow-up. Per the clinic note, the patient's HR had been well controlled and she had been asymptomatic while on Flecanide. At that time Dr. Gifford decided to try and stop her Flecainide at the time of the visit. Her son states that she was recently started on Fosamax for bone density at 70 mg PO weekly. She had her third dose yesterday and her family wasn't sure if this could have caused her symptoms today. I spoke to the patient and her son regarding code status, the patient is a Full Code. Please refer to Dr. Henderson's attestation for any changes to the treatment plan Admission Exam Per Admitting Provider General:In no acute distress, stated age, well-nourished, good hygiene HEENT:Normocephalic, atraumatic, no scleral icterus, pupils around round, symmetrical, and reactive to light, moist mucus membranes, trachea midline, no thyromegaly Chest/Pulm:No respiratory distress, symmetrical chest expansion, clear breath sounds throughout Cardiac:Irregular rate and rhythm, no murmurs noted Abdomen:Negative for ascites and bruising, normoactive bowel sounds, soft, non-tender to palpation throughout Musculoskeletal:Symmetrical and without signs of acute trauma, upper and lower extremities with full ROM, no atrophy, spasticity, or flaccidity Extremities:Radial, dorsalis pedis, and posterior tibial pulses are intact and symmetrical, no edema noted in the BL LE's Skin:Warm, dry, no rashes , lesions, or scars noted Neuro:Alert and oriented to person, place, month, year, and president, no focal defects, CN II-XII tested and intact, finger to nose test negative, no tremors noted Psych:No acute distress, calm and cooperative during the exam Principal Diagnosis Atrial fibrillation with RVR Chest pain secondary to the A Fib with RVR Discharge Exam Constitutional WD/WN, vitals as above ENMT external ear and nose normal, oropharynx normal Neck trachea midline, no thyromegaly Respiratory normal respiratory effort, lungs clear to auscultation Cardiovascular Rate/Rhythm: regular rate and + irregularly irregular Heart Sounds: + murmur Extremities: normal capillary refill; no calf tenderness and no edema Gastrointestinal (Abdomen) normal bowel sounds, soft, nontender, no hepatosplenomegaly Skin no rashes, warm and dry Discharge Data Allergies Allergy/AdvReac Type Severity Reaction Status Date / Time lorazepam [From Ativan] Allergy Severe Hallucinati Verified 07/01/22 15:37 ng pravastatin AdvReac Intermediate muscle Verified 07/01/22 15:37 weakness simvastatin AdvReac Intermediate MUSCLE Verified 07/01/22 15:37 WEAKNESS cephalexin AdvReac Mild STOMACH Verified 07/01/22 15:37 UPSET valsartan AdvReac Unknown Unknown Verified 07/01/22 15:37 Consultations 07/01/22 15:34 ED Decision to Admit Stat 07/01/22 15:49 Consult Cardiology Routine Ordered Studies CXR IMPRESSION: Cardiomegaly with no acute cardiopulmonary abnormality identified. Hospital Course (1) Atrial fibrillation with RVR: Patient was taken off of Flecainide in April. She remained on Eliquis 2.5 mg twice daily. Treated in ED with IV Metoprolol, which resolved her chest pain. Patient's amlodipine was held secondary to starting Metoprolol 25mg twice daily. Cardiology felt that patient's rate was elevated during what was probably permanent atrial fibrillation, probably due to discontinuation of flecainide. And they felt the current rate was acceptable with the addition of the metoprolol at a relatively low dose. (2) Elevated troponin: Per cardiology, her troponin was minimally elevated on presentation, probably due to rate and recommended no further evaluation. 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 Total Time Total Time Spent Total Time Spent (In Minutes): 40 Discharge Plan Discharge Items Patient Disposition: Personal Skilled Nursing Reason For Visit: CHEST PAIN Discharge Diagnosis: Atrial fibrillation with RVR Condition on Discharge: Good Activity: Resume your previous activity Lifting: Gradually increase as tolerated Bathing: No limitations Weightbearing: Full weightbearing Non-emergency contact: Primary Care Provider Call non-emergency contact if: you have any medication questions, your symptoms worsen, your pain is not controlled and your pain is worsening Follow-up/Referrals: Nicanor Ahmadi MD [Primary Care Provider] - 07/06/22 1:00 pm Diet: Heart Healthy Addtl Attending Provider Instructions: follow up with primary care physician in 1 week follow up with cardiology Pending Studies at Discharge: No Stand-Alone Forms: [facility], Smoking Cessation Skilled Items Patient informed of condition?: Yes DNR: No Discharge Level of Care: Skilled Communicable Disease: No Discharge Prognosis: Stable Lines: None Urinary Catheter: No Medications and DC Order Prescriptions: New metoprolol tartrate 25 mg Tablet 25 mg PO BID Qty: 60 0RF Continued loperamide [Imodium A-D] 2 mg tablet 2 mg PO Q4H PRN (Reason: loose stool) Qty: 30 0RF Rx Instructions: administer after each loose stool until symptoms controlled; do not exceed 16 mg per 24 hrs promethazine 25 mg tablet 25 mg PO TID PRN (Reason: nausea and vomiting) Qty: 30 0RF Hair,Skin and Nails Tablet 1 tab PO DAILY Qty: 30 11RF Rx Instructions: PT TO SELF ADMINISTER Eliquis 2.5 mg tablet 2.5 mg PO BID Qty: 60 11RF memantine [Namenda] 5 mg tablet 5 mg PO DAILY Qty: 60 5RF acetaminophen [Tylenol Extra Strength] 500 mg tablet 1,000 mg PO Q6H MDD 3 GRAMS/24 HOURS PRN (Reason: fever or pain) pediatric multivitamin Tablet,Chewable 1 tab PO DAILY mirtazapine 15 mg tablet 15 mg PO HS clotrimazole [Clotrimazole-7] 1 % cream 1 appful vaginal DAILY PRN (Reason: vaginal dryness) Retaine [facility] (PF) 0.3 % drops 2 drp ophthalmic (eye) Q8H PRN (Reason: dry eyes) alendronate [Fosamax] 70 mg tablet 70 mg PO WK Rx Instructions: 70 mg PO once weekly; take on empty stomach with 6 oz of water; sit upright for 30 minutes; do not eat, drink or take any other medications for 30 minutes. Discontinued amlodipine [Norvasc] 5 mg tablet 5 mg PO QAM Qty: 90 3RF Discharge Orders: Discharge Order (Routine); Ordered 07/02/22 Ordered By: Keyana Robb/Other Patient Handouts: AFib Admission Data Admit Date/Time: 07/01/22 15:58 Attending Provider: Sydni Gonzalez Admit Provider: Avery Henderson Primary Care Provider: Nicanor Ahmadi Other Providers: Avery Henderson ; Derrick Gonzalez Other Interventions: Discharge Summary Assessment (RN) Last Done: 07/02/22 14:11 Supervising Physician Co-Signing Physician Notes PA Supervision Note: I personally saw and examined the patient. I verified all pagan points and agree w brianna Michel with the following exceptions and/or additions: Summary of present stay: 86-year-old female history of A. fib on Eliquis, recently had flecainide discontinued, hyperlipidemia, peripheral neuropathy, hypertension who presented for chest pain and was found to be in atrial fibrillation with rapid ventricular response. Patient was given IV metoprolol with improvement in her heart rate and resolution of her chest pain. She will continue her Eliquis 2.5 mg twice daily. She was initiated on metoprolol tartrate 25 mg twice daily and discharged with prescription for this. Her aml odipine was held due to starting metoprolol. Troponin was mildly elevated at the beginning of this admission however this is anticipated to be due to A. fib with RVR. Patient will have follow-up with both cardiology and her primary care provider in the coming weeks. She was doing well on her day of discharge, no complaints of chest pain or shortness of breath, diaphoresis, lightheadedness. No other medication changes were made during her stay. Physical exam: Vitals reviewed Gen: Alert and oriented x3, NAD HEENT: anicteric sclerae, EOMI CV: Heart rate irregularly irregular, no peripheral edema Pulm: CTAB no wheezes Abd: +BS soft NT ND no masses Ext: no edema Skin: no rashes, warm/dry Neuro: No focal neurologic deficits Labs, Rads, and ECG reviewed Coding Level of Care Code D/C DAY MANAGEMENT >30 MINS Diagnoses Atrial fibrillation with RVR I48.91 Elevated troponin R77.8 Hypertension I10 Insomnia G47.00 Osteoporosis M81.0 Senile dementia of Alzheimer's type G30.1; F02.80 Time Spent (min) 40
[2022-07-02 14:15] VITALS: BP 149/95
== END 2022-07-02 14:47 | disposition home or self-care (01) | DRG 309 ==
LOC: ED 14:10 → 2N 15:58 → SUATTDRO 15:58 → 2N 18:26
DX: G30.8 Other Alzheimer's disease; G62.9 Polyneuropathy, unspecified; I34.0 Nonrheumatic mitral (valve) insufficiency; I10 Essential (primary) hypertension; I48.21 Permanent atrial fibrillation; I24.8 Other forms of acute ischemic heart disease; R73.03 Prediabetes; F02.80 Dementia in other diseases classified elsewhere, unspecified severity, without behavioral disturbance, psychotic disturbance, mood disturbance, and anxiety; Z79.01 Long term (current) use of anticoagulants; I48.0 Paroxysmal atrial fibrillation; Z88.8 Allergy status to other drugs, medicaments and biological substances; I48.19 Other persistent atrial fibrillation; I65.29 Occlusion and stenosis of unspecified carotid artery; E78.5 Hyperlipidemia, unspecified; Z87.891 Personal history of nicotine dependence; K21.9 Gastro-esophageal reflux disease without esophagitis; G47.00 Insomnia, unspecified; M81.0 Age-related osteoporosis without current pathological fracture

== ENCOUNTER 2024-05-18 11:44 | Inpatient (IN) ==
--- NOTE | 2024-05-18 12:37 | Emergency Department Note ---
Impression & Plan Acute pain of right shoulder, Acute pain of left hip, Dementia, Acute UTI (urinary tract infection), Fracture, humerus closed ED Provider Note ED Provider Note NAME: NIDA DALEY AGE:88 SEX: Female : 1935 ARRIVES VIA: EMS INFORMANT: Patient ED PROVIDER(s): Lottie Pierce DO CHIEF COMPLAINT: Right shoulder pain, left hip pain HPI: This is an 88-year-old female who presents emergency department due to concern for right shoulder pain and left hip pain. Patient resides at the [facility] and does have a history of dementia. She states she has no pain at this time. She would not recall any fall or change in activity. Patient denies any radiation of the pain into the arm or further down the leg. She denies any difficulty walking. PAST MEDICAL HISTORY:See Below PAST SURGICAL HISTORY:See Below FAMILY HISTORY:See Below SOCIAL HISTORY:See Below HOME MEDICATIONS:See Below ALLERGIES:See Below VITALS:See Below PHYSICAL EXAMINATION: GENERAL: alert, well appearing, well nourished, no distress, non-toxic EYE EXAM: normal conjunctiva, PERRL and EOM's grossly intact OROPHARYNX: no exudate, no erythema, lips, buccal mucosa, and tongue normal and mucous membranes are moist NECK: supple, no nuchal rigidity, no adenopathy, non-tender LUNGS: Clear to auscultation. Normal chest wall mechanics, no w/r/r HEART: no murmurs, S1 normal and S2 normal ABDOMEN: abdomen soft, non-tender, normo-active bowel sounds, no masses, no rebound or guarding. BACK: Back is symmetrical on inspection and there is no deformity, no midline tenderness. SKIN: no rashes, petechiae, orbruising UPPER EXTREMITIES: upper extremities are grossly normal. FROM, nml pulses b/l. Pain with palpation of the right humeral head with edema in the area of the bursa, no overlying erythema. No evidence of ecchymosis or deformity. LOWER EXTREMITIES: No pitting edema. FROM, nml pulses b/l. No evidence of trauma or deformity. No pain with palpation over the left hip laterally. NEURO EXAM: Normal sensorium, cranial nerves II-XII grossly intact, normal speech, no facial droop,nogross weakness of arms, no gross weakness of legs. Gross sensation intact. No ataxia. Vital Signs: reviewed and remarkable Differential Diagnosis: Occult fracture, dehydration, UTI, viral syndrome, medication ADR, worsening dementia, electrolyte abnormality, as well as others were considered MEDICAL DECISION MAKING: This is an 88-year-old female who presents emergency department due to concern for intermittent complaints of right shoulder and left hip pain. Patient had no complaints of pain when I initially asked her, although was tender with palpation at the right shoulder my bedside exam. She was afebrile and hemodynamically stable. Initially x-rays performed and interpreted by me at bedside. X-rays did reveal subacute or chronic appearing fractures at the right shoulder, the left hip/pelvis were unremarkable. Upon arrival of patient's daughter she was able to provide additional information as patient does have dementia. We then contacted the [facility] additionally he reported several falls over the last several weeks. Following this additional information and in consideration for patient's use of anticoagulation due to history of atrial fibrillation, labs drawn and sent, IV established, EKG performed at bedside interpreted me, patient monitored on telemetry. She was sent for CTs of the head and C-spine. These were reassuring. I updated the daughter several times at bedside additionally. Patient placed in a sling for the right upper extremity injuries. She was given IV Tylenol and gentle IV fluid hydration. Patient noted to have a urinary tract infection upon collection of urine. She is given IV Rocephin for this. It is unclear if this could have been contributing to her falls. Daughter denies any prior history of recurrent UTIs. Given patient with several ongoing issues and staff at the [facility] reporting she would be unable to return there tonight due to additional needs as well as needing an upgraded level of care, case was discussed with the hospitalist team for additional evaluation and management. Consultation(s): 1650: Case discussed with Dr. Reed, [facility] hospitalist team, for additional evaluation and management. ER Treatment Provided: See below 1435: Daughter not bedside states patient fell several x 2 to 3 weeks ago. Daughter thinks that she began complaining of pain at that time. She states she has been restricted in use of her right arm which is typically her dominant arm. 1509: I did ask case management to speak with staff at the [facility]. They confirmed the patient's fall several weeks ago and states that if she requires a sling she cannot return as she needs to be ambulating independently or be able to use a walker. They also report during one of her prior falls she did complain of some neck pain. 1624: Patient's daughter updated again at bedside following CT of the head and C-spine. Diagnostics Interpreted By Me: -ECG: Atrial fibrillation at 88, normal axis, normal intervals, nonspecific ST/T wave changes -Cardiac Monitoring: An order was placed for continuous cardiac monitoring. The monitor shows a rate of 90 with A-fib rhythm. -Laboratory studies: As stated above and show below. -Imaging studies: ct head: no ich Triage Nursing Note Reviewed Prior/Outside Records Reviewed Critical care: Critical care of 48 min performed to assess and manage high likelihood of life- threatening traumatic injury and confusion, involving labs and imaging performed with assessment to evaluate traumatic injury diagnosis with frequent reassessment. This time includes bedside time, treatment discussions with patient/family/consultants, documentation time and excludes procedure time. Past Med/Surg History Problem List (Updated 05/18/24 @ 16:24 by Lottie Pierce, ) Fracture, humerus closed (Acute) Acute UTI (urinary tract infection) (Acute) Dementia (Acute) Acute pain of left hip (Acute) Acute pain of right shoulder (Acute) Ruptured varicose vein (Acute) Type II diabetes mellitus Right knee DJD Persistent atrial fibrillation with rapid ventricular response Multiple falls Mitral regurgitation Rotator cuff tear, right Acquired hammer toe Poor historian Tremor (Acute) Senile dementia of Alzheimer's type (Acute) Peripheral neuropathy (Acute) Osteoporosis (Acute) Osteoarthritis of lumbar spine (Acute) Osteoarthritis of knee (Acute) Lichen sclerosus et atrophicus (Acute) Insomnia (Acute) Hyperlipidemia (Acute) Fecal incontinence (Acute) Depression (Acute) Cervical spondylosis (Acute) Cerebral ischemia (Acute) Anemia (Acute) Hypertension (Acute) Chronic anticoagulation Anxiety (Acute) History of colon polyps Leukopenia Aortic regurgitation Medical History History of colon polyps Leukopenia Aortic regurgitation Scoliosis Valvular heart disease Poor historian Memory loss Osteoarthritis GERD (gastroesophageal reflux disease) Anemia Depression Hypertension Hyperlipidemia Carotid stenosis Sternal fracture Anxiety Surgical History Hx of foot surgery History of bilateral tubal ligation History of colonoscopy H/O local excision of skin lesion History of varicose vein ligation History of cataract surgery History of breast biopsy History of hernia repair Family History Brother Asthma Diabetes Heart disease Hypertension Cerebral artery occlusion Mother Alzheimer disease Father Heart disease Unknown Crohn's disease Denies family history of Ovarian cancer Prostate cancer Breast cancer Colorectal cancer Social History (Updated 11/01/23 @ 11:06 by Sarina Dorantes LPN) Smoking Status: Former smoker Do You Dip or Chew Tobacco: No; Hx Alcohol Use: No Hx Substance Use: No Preferred Language: Burkinan Communication Ability: Effective Hearing Ability: Normal Lemon Grower Required: No Beliefs That Will Affect Care: None marital status: / Current Living Situation: Personal Care Facility Current Living Situation Comment: Assisted Living Facility 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 Feels Safe at Home: Yes Childhood Exposure to Second-Hand Smoke: No Diet: regular caffeine: Yes Dental Care, Regularly: Yes Physical Activity Frequency: Daily Seatbelt Use: always Sunscreen Use: No Assistive Devices: Cane, Glasses and Walker Allergies Allergies Allergy/AdvReac Type Severity Reaction Status Date / Time lorazepam [From Ativan] AdvReac Severe Hallucinati Verified 05/18/24 14:40 ons pravastatin AdvReac Intermediate Muscle Verified 05/18/24 14:40 weakness simvastatin AdvReac Intermediate Muscle Verified 05/18/24 14:40 weakness cephalexin AdvReac Mild Upset Verified 05/18/24 14:40 stomach valsartan AdvReac Unknown Unknown Verified 05/18/24 14:40 Home Meds Home Medications Medication Instructions Recorded Confirmed melatonin 5 mg tablet 5 mg PO HS 05/18/24 05/18/24 pediatric multivitamin 1 tab PO DAILY 05/18/24 05/18/24 ropinirole 0.5 mg tablet 0.5 mg PO DAILY 05/18/24 05/18/24 vitamin B complex 1 cap PO DAILY 05/18/24 05/18/24 Previous Rx's Medication Instructions Recorded loperamide 2 mg tablet (Imodium 2 mg PO Q4H PRN loose stool #30 10/12/21 A-D) tabs acetaminophen 500 mg capsule See Rx Instructions PO Q6H PRN 02/11/23 fever #120 caps furosemide 20 mg tablet 20 mg PO DAILY #30 tabs 09/14/23 promethazine 25 mg tablet 25 mg PO TID PRN nausea and 10/18/23 vomiting #30 tabs memantine 10 mg tablet 10 mg PO BID #180 tabs 12/01/23 apixaban 2.5 mg tablet (Eliquis) 2.5 mg PO BID #60 tabs 12/30/23 potassium chloride 10 mEq 10 meq PO BID #60 caps 12/30/23 capsule,extended release metoprolol tartrate 25 mg tablet 25 mg PO BID #180 tabs 04/19/24 Results & Data (ED) Vital Signs Vital Signs - 24 hr 05/18/24 11:46 05/18/24 13:45 05/18/24 15:00 Temperature 36.6 C Temperature Source Oral Pulse Rate 88 Pulse Rate [Apical] 78 Pulse Rate [Left Brachial] 81 Pulse Rhythm [Left Brachial] Regular Pulse Strength [Left Brachial] Normal Respiratory Rate 16 18 21 Respiratory Effort / Characteristics Non-Labored Respiratory Depth Normal Respiratory Pattern Regular Blood Pressure 151/63 H Blood Pressure [Left Arm] 111/73 102/54 L Blood Pressure Mean 92 Blood Pressure Mean [Left Arm] 85 70 Blood Pressure Position Semi-fowlers Blood Pressure Position [Left Arm] Lying Semi-fowlers Pulse Oximetry 98 98 97 Oxygen Delivery Method Room Air Room Air Room Air Sepsis Recent Fever Within 48 Hours No Sepsis New/Unexplained Change in Mental Status N/A Sepsis Action Taken by Nursing No Action Required 05/18/24 16:41 Temperature Temperature Source Pulse Rate 77 Pulse Rate [Apical] Pulse Rate [Left Brachial] Pulse Rhythm [Left Brachial] Pulse Strength [Left Brachial] Respiratory Rate Respiratory Effort / Characteristics Respiratory Depth Respiratory Pattern Blood Pressure Blood Pressure [Left Arm] Blood Pressure Mean Blood Pressure Mean [Left Arm] Blood Pressure Position Blood Pressure Position [Left Arm] Pulse Oximetry Oxygen Delivery Method Sepsis Recent Fever Within 48 Hours Sepsis New/Unexplained Change in Mental Status Sepsis Action Taken by Nursing Laboratory Data 05/18/24 13:18 05/18/24 13:18 Lab Results 05/18/24 05/18/24 Range/Units 13:18 13:38 WBC 4.40 L (4.8-10.8) K/ul RBC 3.14 L (4.20-5.40) M/uL Hgb 9.5 L (12.0-16.0) g/dl Hct 29.1 L (37.0-47.0) % MCV 92.7 (80.0-100.0) fL MCH 30.3 (25.0-34.0) pg MCHC 32.6 (32.0-36.0) g/dL RDW Std Deviation 46.3 (36.4-46.3) fL RDW Coeff of Terrance 13.8 (11.5-14.5) % Plt Count 205 (130-400) K/uL MPV 9.6 (9.4-12.4) fL Immature Gran % (Auto) 0.5 % Neut % (Auto) 63.8 % Lymph % (Auto) 21.4 % [place] % (Auto) 11.6 % Eos % (Auto) 2.0 % Baso % (Auto) 0.7 % Reticulocyte % (Auto) 1.30 (0.50-2.00) % Neut # (Auto) 2.81 (1.40-6.50) K/uL Lymph # (Auto) 0.94 L (1.20-3.40) K/uL [place] # (Auto) 0.51 (0.11-0.59) K/uL Eos # (Auto) 0.09 (0.00-0.50) K/uL Baso # (Auto) 0.03 (0.00-0.20) K/uL Reticulocyte # 0.040 (0.020-0.100) 10^6/uL Immature Gran # (Auto) 0.02 (0.01-0.20) K/uL PT 11.9 (9.0-12.0) Seconds INR 1.1 (0.9-1.1) Sodium 137 (136-145) mmol/L Potassium 4.3 (3.5-5.1) mmol/L Chloride 104 (98-107) mmol/L Carbon Dioxide 26 (21-32) mmol/L Anion Gap 7 (3-11) BUN 29 H (6-23) mg/dl Creatinine 1.27 H (0.6-1.2) mg/dl Est Cr Clr Drug Dosing 31.4 ml/min eGFR 41.18 BUN/Creatinine Ratio 22.8 H (10-20) Glucose 111 H (70-99(Fasting)) mg/dl Calcium 9.2 (8.6-10.3) mg/dl Magnesium 1.9 (1.7-2.4) mg/dl Iron 80 (35-150) mcg/dl TIBC 333 (250-450) mcg/dl Unsaturated IBC 253 (155-355) mcg/dl Transferrin % Sat 24 (15-50) % Ferritin 73.6 (8-388) ng/ml Total Bilirubin 0.7 (0.2-1.0) mg/dl AST 23 (13-39) U/L ALT 15 (7-52) U/L Alkaline Phosphatase 88 (34-104) U/L Lactate Dehydrogenase 250 H (86-244) U/L Total Protein 6.4 (6.0-8.3) gm/dl Albumin 4.0 (3.4-5.0) gm/dl Globulin 2.4 L (2.5-4.0) gm/dl Albumin/Globulin Ratio 1.7 (0.9-2) Lipase 30 (11-82) U/L Vitamin B12 1216 H (180-914) pg/ml Folate > 22.30 (>5.38) ng/ml Urine Color Yellow Urine Appearance Cloudy A (Clear) Urine pH 6.0 (4.5-7.5) Ur Specific [place] 1.009 (1.000-1.030) Urine Protein Negative (Negative) Urine Glucose (UA) Negative (Negative) Urine Ketones Negative (Negative) Urine Blood Trace H (Negative) Urine Nitrite Negative (Negative) Urine Bilirubin Negative (Negative) Urine Urobilinogen Negative (Negative) Ur Leukocyte Esterase 3+ H (Negative) Urine WBC (Auto) >50 H (0-5) /hpf Urine RBC (Auto) 0-2 (0-2) /hpf U Hyaline Cast (Auto) 0-2 (0-2) /lpf U Epithel Cells (Auto) 0-2 (0-2) /hpf Urine Bacteria (Auto) 4+ H (None Seen) Administered Medications Discontinued Medications Ceftriaxone Sodium (Rocephin) 2,000 mg in 50 mls @ 100 mls/hr IV NOW STA Stop: 05/18/24 14:48 Last Infusion: 05/18/24 15:20 Dose: Infused Documented By: Admin: 05/18/24 14:47 Dose: 100 mls/hr Documented By: MMF Acetaminophen (Ofirmev) 1,000 mg in 100 mls @ 400 mls/hr IV NOW STA Stop: 05/18/24 16:36 Last Infusion: 05/18/24 17:13 Dose: Infused Documented By: Admin: 05/18/24 16:43 Dose: 400 mls/hr Documented By: NELLY Sodium Chloride (Nss) 500 mls @ 999 mls/hr IV .Q31M ONE Stop: 05/18/24 17:16 Last Admin: 05/18/24 16:58 Dose: 999 mls/hr Documented By: NIDA Imaging Data Radiologist's Impression: Chest X-Ray 05/18/24 12:11 XR chest 1V portable HISTORY: 88 years-old Female pain acute chest trauma COMPARISON: 07/01/2022 TECHNIQUE: AP view of the chest FINDINGS: Cardiac silhouette is enlarged. Atherosclerosis of the aorta. No pneumothorax, pleural effusion, airspace consolidation or pulmonary edema. Degenerative changes of the shoulders and spine. Lumbar levoscoliosis. IMPRESSION: Cardiomegaly without acute process. ACT 112: Negative or not required by law. The above report was generated using voice recognition software. It may contain grammatical, syntax or spelling errors. Electronically signed by: Manolo Hernadez M.D. 05/18/2024 1:22 PM Hip/Pelvis X-Ray 05/18/24 12:11 XR hip LT 2V w pelvis CLINICAL HISTORY: Pain. COMPARISON: Pelvis radiograph March 28, 2021. FINDINGS: Sacroiliac joints and symphysis pubis are intact. There are no fractures within the pelvis or hips. There are no osseous lesions. There is no evidence for avascular necrosis of the femoral heads. There is moderate bilateral hip osteoarthritis. There are pelvic surgical clips. IMPRESSION: 1. No fractures within the pelvis or hips. 2. Moderate bilateral hip osteoarthritis. ACT 112: Negative or not required by law. Electronically signed by: Dexter Klein M.D. 05/18/2024 1:29 PM Shoulder X-Ray 05/18/24 12:11 XR shoulder RT min 2V routine CLINICAL HISTORY: Right shoulder pain. COMPARISON: Right shoulder radiographs April 07, 2021. FINDINGS: There is elevation of the right humeral head. There is lucency with sclerotic margins through the acromion. In addition, there is apparent abnormal morphology of the right humeral head and neck which raises the possibility of a fracture. This may be technical. There are moderate degenerative changes within the right shoulder. IMPRESSION: 1. Equivocal right humeral head and neck fracture, as described above. A CT of the right shoulder could be obtained for further evaluation. 2. Findings suggestive of a subacute to chronic right acromion fracture. 3. Elevation of the right humeral head suggestive of a chronic rotator cuff tear. ACT 112: Negative or not required by law. Electronically signed by: Dexter Klein M.D. 05/18/2024 1:10 PM Ankle X-Ray 05/18/24 13:02 XR ankle LT min 3V routine CLINICAL HISTORY: trauma COMPARISON: Leg length study June 26, 2018. FINDINGS: Alignment of the left ankle is anatomic. Talar dome is intact. There are no fractures. There is mild ankle soft tissue swelling. IMPRESSION: No fracture or dislocation within the left ankle. ACT 112: Negative or not required by law. Electronically signed by: Dexter Klein M.D. 05/18/2024 1:[address] 05/18/24 15:08 CT OF THE CERVICAL SPINE WITHOUT CONTRAST CLINICAL HISTORY: Trauma COMPARISON STUDY: Cervical spine CT March 28, 2021. TECHNIQUE: Helical axial images of the cervical spine were obtained without IV contrast. Sagittal and coronal reconstructions were viewed. Automated exposure control was utilized for the study. A dose lowering technique was utilized adhering to the principles of ALARA. FINDINGS: Reversal of the cervical lordosis is again noted with mild anterolisthesis of C3 on C4 and retrolisthesis of C6 on C7. Degenerative changes at the C1-C2 articulation have progressed. No acute cervical spine fracture is present. There is moderate multilevel degenerative disc disease and facet arthrosis within the cervical spine. IMPRESSION: No acute cervical spine fracture or subluxation. ACT 112: Negative or not required by law. Electronically signed by: Dexter Klein M.D. 05/18/2024 4:[address] 05/18/24 15:08 CT SCAN OF THE BRAIN WITHOUT IV CONTRAST CLINICAL HISTORY: Trauma. Fall. COMPARISON STUDY: CT of the brain dated 12/29/2021. TECHNIQUE: Unenhanced axial CT scan of the brain is performed from the vertex to the skull base. A dose lowering technique was utilized adhering to the principles of ALARA. CT DOSE: 4.42 mGy.cm FINDINGS: Brain parenchyma: There is age-related involutional change noting advanced confluent subcortical and periventricular microangiopathic disease. There is no hemorrhage, mass effect, or evidence of acute territorial ischemia by CT criteria. Kwon-white matter differentiation is preserved. No extra-axial fluid collection is seen. Ventricles, sulci, cisterns: Prominent secondary to involutional change. Intracranial vasculature: There is atherosclerotic calcification of the cavernous carotid and vertebral artery. Calvarium: Unremarkable. Sinuses and mastoids: The visualized paranasal sinuses are clear. The mastoid air cells are well pneumatized. Orbits: The bony orbits are grossly intact. There are bilateral ocular lens implants. IMPRESSION: There is no hemorrhage, mass effect, or evidence of acute territorial ischemia by CT criteria. ACT 112: Negative or not required by law. Electronically signed by: Paul Blum M.D. 05/18/2024 3:52 PM Discharge Plan Visit Data Chief Complaint: Arm Pain Stated Complaint: HIP, L LEG & R ARM PAIN ED Provider: Lottie Pierce Discharge Problem: Acute pain of right shoulder, Acute pain of left hip, Dementia, Acute UTI (urinary tract infection), Fracture, humerus closed Forms Stand Alone Forms: [facility] Prescriptions Prescriptions: No Action loperamide [Imodium A-D] 2 mg tablet 2 mg PO Q4H PRN (Reason: loose stool) Qty: 30 0RF Rx Instructions: administer after each loose stool until symptoms controlled; do not exceed 16 mg per 24 hrs acetaminophen 500 mg capsule See Rx Instructions PO Q6H PRN (Reason: fever) Qty: 120 0RF Rx Instructions: 2 tablets po QPM, and Q6 prn pain/fever, do not exceed 3000mg/24hours furosemide 20 mg tablet 20 mg PO DAILY Qty: 30 11RF promethazine 25 mg tablet 25 mg PO TID PRN (Reason: nausea and vomiting) Qty: 30 0RF memantine 10 mg tablet 10 mg PO BID Qty: 180 3RF Eliquis 2.5 mg tablet 2.5 mg PO BID Qty: 60 11RF potassium chloride 10 mEq capsule, extended release 10 meq PO BID Qty: 60 5RF metoprolol tartrate 25 mg tablet 25 mg PO BID Qty: 180 3RF melatonin 5 mg Tablet 5 mg PO HS Children's Multi Vitamins Tablet,Chewable 1 tab PO DAILY ropinirole 0.5 mg tablet 0.5 mg PO DAILY vitamin B complex [B Complex] Capsule 1 cap PO DAILY Referrals Referrals: Nicanor Ahmadi MD [Primary Care Provider] -
--- NOTE | 2024-05-18 13:11 | XRay Report ---
XR shoulder RT min 2V routine CLINICAL HISTORY: Right shoulder pain. COMPARISON: Right shoulder radiographs April 07, 2021. FINDINGS: There is elevation of the right humeral head. There is lucency with sclerotic margins thro ugh the acromion. In addition, there is apparent abnormal morphology of the right humeral head and ne ck which raises the possibility of a fracture. This may be technical. There are moderate degenerative changes within the right shoulder. IMPRESSION: 1. Equivocal right humeral head and neck fracture, as described above. A CT of the right shoulder cou ld be obtained for further evaluation. 2. Findings suggestive of a subacute to chronic right acromion fracture. 3. Elevation of the right humeral head suggestive of a chronic rotator cuff tear. ACT 112: Negative or not required by law. Electronically signed by: Dexter Klein M.D. 05/18/2024 1:10 PM
--- NOTE | 2024-05-18 13:23 | XRay Report ---
XR chest 1V portable HISTORY: 88 years-old Female pain acute chest trauma COMPARISON: 07/01/2022 TECHNIQUE: AP view of the chest FINDINGS: Cardiac silhouette is enlarged. Atherosclerosis of the aorta. No pneumothorax, pleural effusion, airs pace consolidation or pulmonary edema. Degenerative changes of the shoulders and spine. Lumbar levosc oliosis. IMPRESSION: Cardiomegaly without acute process. ACT 112: Negative or not required by law. The above report was generated using voice recognition software. It may contain grammatical, syntax o r spelling errors. Electronically signed by: Manolo Hernadez M.D. 05/18/2024 1:22 PM
--- NOTE | 2024-05-18 13:31 | XRay Report ---
XR hip LT 2V w pelvis CLINICAL HISTORY: Pain. COMPARISON: Pelvis radiograph March 28, 2021. FINDINGS: Sacroiliac joints and symphysis pubis are intact. There are no fractures within the pelvis or hips. There are no osseous lesions. There is no evidence for avascular necrosis of the femoral he ads. There is moderate bilateral hip osteoarthritis. There are pelvic surgical clips. IMPRESSION: 1. No fractures within the pelvis or hips. 2. Moderate bilateral hip osteoarthritis. ACT 112: Negative or not required by law. Electronically signed by: Dexter Klein M.D. 05/18/2024 1:29 PM
[2024-05-18 13:48] LABS: Basophils # (auto) 0.03 K/uL (0.00-0.20); Basophils % (auto) 0.7 %; Eosinophils # (auto) 0.09 K/uL (0.00-0.50); Hematocrit (blood only) 29.1 % (37.0-47.0); Hemoglobin 9.5 g/dl (12.0-16.0); Immature Granulocytes # (auto) 0.02 K/uL (0.01-0.20); Immature Granulocytes % (auto) 0.5 %; Lymphocytes # (auto) 0.94 K/uL (1.20-3.40); Lymphocytes % (auto) 21.4 %; Mean Corpuscular Hemoglobin 30.3 pg (25.0-34.0); Mean Corpuscular Hgb Conc 32.6 g/dL (32.0-36.0); Mean Corpuscular Volume 92.7 fL (80.0-100.0); Mean Platelet Volume 9.6 fL (9.4-12.4); Monocytes # (auto) 0.51 K/uL (0.11-0.59); Monocytes % (auto) 11.6 %; Neutrophils # (auto) 2.81 K/uL (1.40-6.50); Neutrophils % (auto) 63.8 %; Platelet Count 205 K/uL (130-400); RDW Coefficient of Variation 13.8 % (11.5-14.5); RDW Standard Deviation 46.3 fL (36.4-46.3); Red Blood Count 3.14 M/uL (4.20-5.40)
[2024-05-18 13:53] LABS: Appearance Urine Cloudy (Clear); Bacteria Urine Automated 4+ (None Seen); Bilirubin Urine Negative (Negative); Blood Urine Trace (Negative); Cast Urine Automated 0-2 /lpf (0-2); Color Urine Yellow; Epithelial Cell Urine Auto 0-2 /hpf (0-2); Glucose Urine UA Negative (Negative); Ketones Urine Negative (Negative); Leukocyte Esterase Urine 3+ (Negative); Nitrite Urine Negative (Negative); Protein Urine Negative (Negative); RBC Urine Automated 0-2 /hpf (0-2); Specific Gravity Urine 1.009 (1.000-1.030); Urobilinogen Urine Negative (Negative); WBC Urine Automated >50 /hpf (0-5)
--- NOTE | 2024-05-18 13:55 | XRay Report ---
XR ankle LT min 3V routine CLINICAL HISTORY: trauma COMPARISON: Leg length study June 26, 2018. FINDINGS: Alignment of the left ankle is anatomic. Talar dome is intact. There are no fractures. The re is mild ankle soft tissue swelling. IMPRESSION: No fracture or dislocation within the left ankle. ACT 112: Negative or not required by law. Electronically signed by: Dexter Klein M.D. 05/18/2024 1:54 PM
[2024-05-18 13:56] LABS: Albumin Globulin Ratio 1.7 (0.9-2); BUN Creatinine Ratio 22.8 (10-20); Bilirubin,Total 0.7 mg/dl (0.2-1.0); Calcium 9.2 mg/dl (8.6-10.3); Creatinine Clr Calc Pharmacy 31.4 ml/min; Globulin 2.4 gm/dl (2.5-4.0); Magnesium 1.9 mg/dl (1.7-2.4); Potassium 4.3 mmol/L (3.5-5.1); Total Protein 6.4 gm/dl (6.0-8.3)
[2024-05-18 14:04] LABS: INR 1.1 (0.9-1.1); Prothrombin Time 11.9 Seconds (9.0-12.0)
[2024-05-18] MEDS: cefTRIAXone SODIUM 2,000 MG/50 ML BAG IV STA (14:47)
--- NOTE | 2024-05-18 15:54 | CT Scan Report ---
CT SCAN OF THE BRAIN WITHOUT IV CONTRAST CLINICAL HISTORY: Trauma. Fall. COMPARISON STUDY: CT of the brain dated 12/29/2021. TECHNIQUE: Unenhanced axial CT scan of the brain is performed from the vertex to the skull base. A do se lowering technique was utilized adhering to the principles of ALARA. CT DOSE: 4.42 mGy.cm FINDINGS: Brain parenchyma: There is age-related involutional change noting advanced confluent subcortical and periventricular microangiopathic disease. There is no hemorrhage, mass effect, or evidence of acute t erritorial ischemia by CT criteria. Kwon-white matter differentiation is preserved. No extra-axial fl uid collection is seen. Ventricles, sulci, cisterns: Prominent secondary to involutional change. Intracranial vasculature: There is atherosclerotic calcification of the cavernous carotid and vertebr al artery. Calvarium: Unremarkable. Sinuses and mastoids: The visualized paranasal sinuses are clear. The mastoid air cells are well pneu matized. Orbits: The bony orbits are grossly intact. There are bilateral ocular lens implants. IMPRESSION: There is no hemorrhage, mass effect, or evidence of acute territorial ischemia by CT william zavala. ACT 112: Negative or not required by law. Electronically signed by: Paul Blum M.D. 05/18/2024 3:52 PM
--- NOTE | 2024-05-18 16:04 | CT Scan Report ---
CT OF THE CERVICAL SPINE WITHOUT CONTRAST CLINICAL HISTORY: Trauma COMPARISON STUDY: Cervical spine CT March 28, 2021. TECHNIQUE: Helical axial images of the cervical spine were obtained without IV contrast. Sagittal a nd coronal reconstructions were viewed. Automated exposure control was utilized for the study. A do se lowering technique was utilized adhering to the principles of ALARA. FINDINGS: Reversal of the cervical lordosis is again noted with mild anterolisthesis of C3 on C4 and retrolisthesis of C6 on C7. Degenerative changes at the C1-C2 articulation have progressed. No acute cervical spine fracture is present. There is moderate multilevel degenerative disc disease and facet arthrosis within the cervical spine. IMPRESSION: No acute cervical spine fracture or subluxation. ACT 112: Negative or not required by law. Electronically signed by: Dexter Klein M.D. 05/18/2024 4:03 PM
[2024-05-18] MEDS: ACETAMINOPHEN 1,000 MG/100 ML VIAL IV STA (16:43)
[2024-05-18] MEDS: SODIUM CHLORIDE 0.9% 500 ML IV ONE (16:58)
[2024-05-18 17:27] LABS: Reticulocyte % 1.3 % (0.50-2.00); Reticulocytes # 0.04 10^6/uL (0.020-0.100)
[2024-05-18 17:47] LABS: Ferritin 73.6 ng/ml (8-388)
[2024-05-18 18:04] LABS: Folate (Folic Acid),Ser orPlas > 22.30 ng/ml (>5.38)
[2024-05-18 18:05] LABS: Vitamin B12 1216 pg/ml (180-914)
--- NOTE | 2024-05-18 18:27 | History & Physical Report ---
Date of Service May 18, 2024 Assessment & Plan (1) Acute UTI (urinary tract infection): Plan: Acute - Admit to med/surg - Carb consistent diet d/t diet-controlled DM - Vital signs as per unit protocol - UA grossly infected appearing, covered with ceftriaxone 2g IV x1 in ED, will continue, next dose to start 10/ @ 0900 - Urine cultured and pending, follow results and tailor abx accordingly - Gentle IVF hydration with NSS at 80 ml/hr (2) Fracture, humerus closed: Plan: Chronicity uncertain in setting of multiple recent falls - Noted on radiograph, do not believe she would lay still for CT but could be considered for additional information - Consult orthopedics, appreciate input, anticipate nonop management - Tylenol for pain relief - Sling to RUE for immobilization - PT/OT eval (3) Anemia: Plan: Acute on chronic, normocytic normochromic - Baseline ~10-11 g/dL - Check FOBT - Iron panel ordered - AM CBC to trend H/H (4) Renal insufficiency: Plan: Acute - Mild increase in serum creatinine, likely due to mild dehydration - Does not meet criteria for CHERELLE - Gentle IVF hydration as above and repeat BMP ordered for tomorrow AM Plan Chronic medical problems: 1. Afib - stable, continue metoprolol tartrate and low dose eliquis 2. Alzheimer's dementia - continue memantine 10mg bid 3. RLS - worsening restless leg symptoms, trial increase requip to 1mg qhs, as this could certainly be contributing to increased falls. 4. DMT2 - diet controlled, carb consistent diet ordered. Last a1c 6.7% in 2022 VTE ppx will be covered with resumption of eliquis. AM labs have been ordered. PT/OT eval as above. CM for likely skilled rehab placement on discharge. Plan has been d/w Dr. Reed, further orders as warranted by attending. History of Present Illness Chief Complaint: Arm pain Primary Care Provider: Nicanor Ahmadi MD Mirna is an 88 yo F with a pmhx of Alzheimer's dementia, diet-controlled DMT2, afib on chronic DOAC therapy, HLD, and restless leg syndrome who presents to the ER due to c/o right arm pain. Patient is a poor historian and subsequently history was obtained from family and ER documentation as well as from the [place] ([facility] where she resides. Apparently, she has sustained multiple falls over the past several weeks. She presented with primary complaints of L hip and R arm pain. ER work up demonstrated a grossly infected urine and mild renal insufficiency. Imaging of her right shoulder revealed a subacute or chronic fracture of the acromion and right humeral head and neck fracture. She is noted to have a mildly low hgb of 9.5 that is lower than her baseline and a WBC of 4.40. CTH and neck were nonacute. She is afebrile and hemodynamically stable. She was medicated with a dose of Rocephin 2g, APAP 1g IV, and a liter of NSS and has been referred to the hospital medicine team for admission. Allergies Allergy/AdvReac Type Severity Reaction Status Date / Time lorazepam [From Ativan] AdvReac Severe Hallucinati Verified 05/18/24 14:40 ons pravastatin AdvReac Intermediate Muscle Verified 05/18/24 14:40 weakness simvastatin AdvReac Intermediate Muscle Verified 05/18/24 14:40 weakness cephalexin AdvReac Mild Upset Verified 05/18/24 14:40 stomach valsartan AdvReac Unknown Unknown Verified 05/18/24 14:40 Home Medications Medication Instructions Recorded Confirmed Type loperamide 2 mg tablet (Imodium 2 mg PO Q4H PRN loose stool #30 10/12/21 05/18/24 Rx A-D) tabs acetaminophen 500 mg capsule See Rx Instructions PO Q6H PRN 02/11/23 05/18/24 Rx fever #120 caps furosemide 20 mg tablet 20 mg PO DAILY #30 tabs 09/14/23 05/18/24 Rx promethazine 25 mg tablet 25 mg PO TID PRN nausea and 10/18/23 05/18/24 Rx vomiting #30 tabs memantine 10 mg tablet 10 mg PO BID #180 tabs 12/01/23 05/18/24 Rx apixaban 2.5 mg tablet (Eliquis) 2.5 mg PO BID #60 tabs 12/30/23 05/18/24 Rx potassium chloride 10 mEq 10 meq PO BID #60 caps 12/30/23 05/18/24 Rx capsule,extended release metoprolol tartrate 25 mg tablet 25 mg PO BID #180 tabs 04/19/24 05/18/24 Rx melatonin 5 mg tablet 5 mg PO HS 05/18/24 05/18/24 History pediatric multivitamin 1 tab PO DAILY 05/18/24 05/18/24 History ropinirole 0.5 mg tablet 0.5 mg PO DAILY 05/18/24 05/18/24 History vitamin B complex 1 cap PO DAILY 05/18/24 05/18/24 History Past Med/Surg History Problem List (Updated 05/19/24 @ 08:46 by Gorge Omalley DO) Fracture of humeral head, right, closed Rotator cuff tear arthropathy of right shoulder Renal insufficiency Anemia Fracture, humerus closed (Acute) Acute UTI (urinary tract infection) (Acute) Dementia (Acute) Acute pain of left hip (Acute) Acute pain of right shoulder (Acute) Ruptured varicose vein (Acute) Type II diabetes mellitus Right knee DJD Persistent atrial fibrillation with rapid ventricular response Multiple falls Mitral regurgitation Rotator cuff tear, right Acquired hammer toe Poor historian Tremor (Acute) Senile dementia of Alzheimer's type (Acute) Peripheral neuropathy (Acute) Osteoporosis (Acute) Osteoarthritis of lumbar spine (Acute) Osteoarthritis of knee (Acute) Lichen sclerosus et atrophicus (Acute) Insomnia (Acute) Hyperlipidemia (Acute) Fecal incontinence (Acute) Depression (Acute) Cervical spondylosis (Acute) Cerebral ischemia (Acute) Anemia (Acute) Hypertension (Acute) Chronic anticoagulation Anxiety (Acute) History of colon polyps Leukopenia Aortic regurgitation Medical History History of colon polyps Leukopenia Aortic regurgitation Scoliosis Valvular heart disease Poor historian Memory loss Osteoarthritis GERD (gastroesophageal reflux disease) Anemia Depression Hypertension Hyperlipidemia Carotid stenosis Sternal fracture Anxiety Surgical History Hx of foot surgery History of bilateral tubal ligation History of colonoscopy H/O local excision of skin lesion History of varicose vein ligation History of cataract surgery History of breast biopsy History of hernia repair Family History Brother Asthma Diabetes Heart disease Hypertension Cerebral artery occlusion Mother Alzheimer disease Father Heart disease Unknown Crohn's disease Denies family history of Ovarian cancer Prostate cancer Breast cancer Colorectal cancer Social History (Updated 11/01/23 @ 11:06 by Sarina Dorantes LPN) Smoking Status: Never smoker Do You Dip or Chew Tobacco: No; Hx Alcohol Use: Yes Alcohol type: wine Alcohol Intake Frequency Comment: socially Hx Substance Use: No Preferred Language: Slovenian Communication Ability: Effective Hearing Ability: Normal 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 Feels Safe at Home: Yes Safety Concerns: Feels Safe At This Time Childhood Exposure to Second-Hand Smoke: No Diet: regular caffeine: Yes Dental Care, Regularly: Yes Physical Activity Frequency: Daily Seatbelt Use: always Sunscreen Use: No Assistive Devices: Cane, Glasses and Walker Review of Systems 2 Review of Systems: All systems reviewed and are unremarkable except as noted in HPI and below. Denies fever, chills, fatigue, headache, nasal congestion, sore throat, cough, chest pain, shortness of breath, palpitations, orthopnea, PND, abdominal pain, n/v/d, constipation, dysuria, hematuria, frequency, back pain, easy bruising or bleeding, skin lesions or rashes. Physical Exam 2 Physical Exam: GENERAL: 88 yo well-nourished elderly F. NAD. EYES: EOMI. PERRLA. Anicteric. HENT: Moist mucous membranes. No scleral icterus. No cervical lymphadenopathy. LUNGS: Clear to auscultation bilaterally. No accessory muscle use. No W/R/R. CARDIOVASCULAR: Irregular with CVR ABDOMEN: Soft, non-tender and non-distended. No palpable masses. Bowel sounds normoactive x 4 quad. EXTREMITIES: No edema of b/l LE. TTP of R humeral head. Peripheral pulses +2/4. NEUROLOGIC: Awake, alert, oriented. No focal neurological deficits. CN II-XII grossly intact. Intermittent jerking/shaking of bilateral legs. PSYCHIATRIC: Cooperative. Appropriate mood and affect. SKIN: Warm, dry, intact. No rashes or lesions. Results & Data Results & Data Vital Signs (Past 12 Hours) Vital Signs Temp Pulse Pulse Pulse Resp BP BP 05/18/24 16:41 77 05/18/24 15:00 78 21 102/54 L 05/18/24 13:45 81 18 111/73 05/18/24 11:46 36.6 C 88 16 151/63 H Pulse Ox O2 Del Method 05/18/24 16:41 05/18/24 15:00 97 Room Air 05/18/24 13:45 98 Room Air 05/18/24 11:46 98 Room Air Laboratory Results 05/18/24 13:18 05/18/24 13:18 Diagnostic Findings Chest X-Ray 05/18/24 12:11 XR chest 1V portable HISTORY: 88 years-old Female pain acute chest trauma COMPARISON: 07/01/2022 TECHNIQUE: AP view of the chest FINDINGS: Cardiac silhouette is enlarged. Atherosclerosis of the aorta. No pneumothorax, pleural effusion, airspace consolidation or pulmonary edema. Degenerative changes of the shoulders and spine. Lumbar levoscoliosis. IMPRESSION: Cardiomegaly without acute process. ACT 112: Negative or not required by law. The above report was generated using voice recognition software. It may contain grammatical, syntax or spelling errors. Electronically signed by: Manolo Hernadez M.D. 05/18/2024 1:22 PM Hip/Pelvis X-Ray 05/18/24 12:11 XR hip LT 2V w pelvis CLINICAL HISTORY: Pain. COMPARISON: Pelvis radiograph March 28, 2021. FINDINGS: Sacroiliac joints and symphysis pubis are intact. There are no fractures within the pelvis or hips. There are no osseous lesions. There is no evidence for avascular necrosis of the femoral heads. There is moderate bilateral hip osteoarthritis. There are pelvic surgical clips. IMPRESSION: 1. No fractures within the pelvis or hips. 2. Moderate bilateral hip osteoarthritis. ACT 112: Negative or not required by law. Electronically signed by: Dexter Klein M.D. 05/18/2024 1:29 PM Shoulder X-Ray 05/18/24 12:11 XR shoulder RT min 2V routine CLINICAL HISTORY: Right shoulder pain. COMPARISON: Right shoulder radiographs April 07, 2021. FINDINGS: There is elevation of the right humeral head. There is lucency with sclerotic margins through the acromion. In addition, there is apparent abnormal morphology of the right humeral head and neck which raises the possibility of a fracture. This may be technical. There are moderate degenerative changes within the right shoulder. IMPRESSION: 1. Equivocal right humeral head and neck fracture, as described above. A CT of the right shoulder could be obtained for further evaluation. 2. Findings suggestive of a subacute to chronic right acromion fracture. 3. Elevation of the right humeral head suggestive of a chronic rotator cuff tear. ACT 112: Negative or not required by law. Electronically signed by: Dexter Klein M.D. 05/18/2024 1:10 PM Ankle X-Ray 05/18/24 13:02 XR ankle LT min 3V routine CLINICAL HISTORY: trauma COMPARISON: Leg length study June 26, 2018. FINDINGS: Alignment of the left ankle is anatomic. Talar dome is intact. There are no fractures. There is mild ankle soft tissue swelling. IMPRESSION: No fracture or dislocation within the left ankle. ACT 112: Negative or not required by law. Electronically signed by: Dexter Klein M.D. 05/18/2024 1:[address] 05/18/24 15:08 CT OF THE CERVICAL SPINE WITHOUT CONTRAST CLINICAL HISTORY: Trauma COMPARISON STUDY: Cervical spine CT March 28, 2021. TECHNIQUE: Helical axial images of the cervical spine were obtained without IV contrast. Sagittal and coronal reconstructions were viewed. Automated exposure control was utilized for the study. A dose lowering technique was utilized adhering to the principles of ALARA. FINDINGS: Reversal of the cervical lordosis is again noted with mild anterolisthesis of C3 on C4 and retrolisthesis of C6 on C7. Degenerative changes at the C1-C2 articulation have progressed. No acute cervical spine fracture is present. There is moderate multilevel degenerative disc disease and facet arthrosis within the cervical spine. IMPRESSION: No acute cervical spine fracture or subluxation. ACT 112: Negative or not required by law. Electronically signed by: Dexter Klein M.D. 05/18/2024 4:[address] 05/18/24 15:08 CT SCAN OF THE BRAIN WITHOUT IV CONTRAST CLINICAL HISTORY: Trauma. Fall. COMPARISON STUDY: CT of the brain dated 12/29/2021. TECHNIQUE: Unenhanced axial CT scan of the brain is performed from the vertex to the skull base. A dose lowering technique was utilized adhering to the principles of ALARA. CT DOSE: 2034.42 mGy.cm FINDINGS: Brain parenchyma: There is age-related involutional change noting advanced confluent subcortical and periventricular microangiopathic disease. There is no hemorrhage, mass effect, or evidence of acute territorial ischemia by CT criteria. Kwon-white matter differentiation is preserved. No extra-axial fluid collection is seen. Ventricles, sulci, cisterns: Prominent secondary to involutional change. Intracranial vasculature: There is atherosclerotic calcification of the cavernous carotid and vertebral artery. Calvarium: Unremarkable. Sinuses and mastoids: The visualized paranasal sinuses are clear. The mastoid air cells are well pneumatized. Orbits: The bony orbits are grossly intact. There are bilateral ocular lens implants. IMPRESSION: There is no hemorrhage, mass effect, or evidence of acute territorial ischemia by CT criteria. ACT 112: Negative or not required by law. Electronically signed by: Paul Blum M.D. 05/18/2024 3:52 PM Code Status & VTE Plan Code Status DNR/DNI - confirmed with sonCisco at bedside VTE Prophylaxis Plan VTE Prophylaxis will be ordered: Yes Supervising Physician Co-Signing Physician Notes I personally saw and examined the patient. I independently reviewed the labs, EKG, imaging, problem list, medication list, past medical history and family history. I verified all pagan points and agree with Robyn Ch PA-C with the following exceptions and/or additions: 88 year old female presents to the ER with multiple falls. Unable o get any history from patient due to dementia. She does not appear to be in any pain O/E Alert but not orientated x3, HS RRR, no murmurs, Chest CTAB, Abdo SNT, no CVA tenderness A/P Acute UTI - IV ceftriaxone 2g IV, follow up culture Right humerus fracture - orthopedics consulted PG Care Time/CCT Total # of Minutes Spent Total Time Spent with Patient: Total time spent is greater than 50% in coordination of care (as documented) at patient's floor/unit and/or counseling patient: 77 minutes Coding Level of Care Code 39237 INT INP/OBS CARE 3/75MIN Diagnoses Acute UTI (urinary tract infection) N39.0 Fracture, humerus closed S42.309A Anemia D64.9 Renal insufficiency N28.9
[2024-05-18] MEDS ORDERED: POLYETHYLENE (MIRALAX) 17 GM PACK PO PRN (20:17)
[2024-05-18] MEDS ORDERED: ALUMINUM/MAGNESIUM SUSP 30 ML UDC PO PRN (20:17)
[2024-05-18] MEDS ORDERED: PROMETHAZINE HCL 25 MG TAB PO PRN (20:17)
[2024-05-18] MEDS ORDERED: MAGNESIUM HYDROXIDE SUSP 30 ML UDC PO PRN (20:17)
[2024-05-18] MEDS ORDERED: ONDANSETRON INJ 2 MG/ML 2 ML VIAL IV PRN (20:17)
[2024-05-18] MEDS: MELATONIN 3 MG TAB PO SCH (21:39)
[2024-05-18] MEDS: rOPINIRole HCL 1 MG TABLET PO SCH (21:41)
[2024-05-18] MEDS: APIXABAN 2.5 MG TAB PO SCH (21:41)
[2024-05-18] MEDS: MEMANTINE HCL 10 MG TAB PO SCH (21:41)
[2024-05-18] MEDS: METOPROLOL TARTRATE 25 MG TAB PO SCH (21:42)
[2024-05-18] MEDS: POTASSIUM CHLORIDE 10 MEQ TABCR PO SCH (21:42)
[2024-05-18] MEDS: SODIUM CHLORIDE 0.9% 1,000 ML IV SCH (22:09)
[2024-05-19 05:47] LABS: Basophils # (auto) 0.02 K/uL (0.00-0.20); Basophils % (auto) 0.4 %; Eosinophils # (auto) 0.06 K/uL (0.00-0.50); Eosinophils % (auto) 1.2 %; Hematocrit (blood only) 25.5 % (37.0-47.0); Hemoglobin 8.4 g/dl (12.0-16.0); Immature Granulocytes # (auto) 0.02 K/uL (0.01-0.20); Immature Granulocytes % (auto) 0.4 %; Lymphocytes # (auto) 1.17 K/uL (1.20-3.40); Lymphocytes % (auto) 23.3 %; Mean Corpuscular Hemoglobin 30.4 pg (25.0-34.0); Mean Corpuscular Hgb Conc 32.9 g/dL (32.0-36.0); Mean Corpuscular Volume 92.4 fL (80.0-100.0); Mean Platelet Volume 9.6 fL (9.4-12.4); Monocytes # (auto) 0.58 K/uL (0.11-0.59); Monocytes % (auto) 11.5 %; Neutrophils # (auto) 3.18 K/uL (1.40-6.50); Neutrophils % (auto) 63.2 %; Platelet Count 178 K/uL (130-400); RDW Coefficient of Variation 13.8 % (11.5-14.5); RDW Standard Deviation 46.6 fL (36.4-46.3); Red Blood Count 2.76 M/uL (4.20-5.40); White Blood Count 5.03 K/ul (4.8-10.8)
[2024-05-19 05:59] LABS: BUN Creatinine Ratio 21.7 (10-20); Calcium 8.4 mg/dl (8.6-10.3); Creatinine Clr Calc Pharmacy 30.9 ml/min; Magnesium 1.8 mg/dl (1.7-2.4); Potassium 4.2 mmol/L (3.5-5.1)
--- NOTE | 2024-05-19 08:18 | Orthopedic Consultation ---
Date of Consultation May 19, 2024 Assessment & Plan (1) Rotator cuff tear arthropathy of right shoulder: Plan Patient was seen and examined at bedside in the emergency department. She demonstrates painless range of motion of the right shoulder at this time, and as such I do think that if she does. Proximal humerus fracture, it is likely subacute. The patient does have evidence of cuff tear arthropathy of the right shoulder as noted by her elevated humeral head. I attempted to discuss this with the patient, however due to her dementia her participation was limited. Considering she demonstrates pain-free range of motion at this point, I would avoid immobilization so as to prevent excessive stiffness in her shoulder or elbow. Should the patient have extreme discomfort, a collar and cuff type sling would be okay provided that she comes out of it multiple times daily to work on elbow range of motion. The patient is admitted to the medical service for workup of her additional medical issues, medical management per the primary team. The patient should feel free to follow-up with orthopedics as an outpatient for her cuff tear arthropathy, however given her history of dementia, I do not believe that she would be a good candidate for any type of arthroplasty procedure for this. Thank you for allowing me to participate in the care of this patient History of Present Illness Reason for Consultation: Right shoulder Requesting Physician: Robyn Ch PA-C Attending Physician: Avery Henderson History of Present Illness This is an 88 year old female with a past medical history of Alzheimer's, type 2 diabetes, A-fib, hyperlipidemia who presented to the emergency department yesterday due to right shoulder pain. The patient has a history of dementia and is a poor historian, but this morning states that her arm does not hurt nearly as bad as it did previously. Apparently she lives at an assisted living facility and has sustained multiple falls over the past few weeks. In the emergency department x-rays of the right shoulder and left hip were obtained and there was concern for right proximal humerus fracture for which orthopedics was consulted. Patient notes this morning that she is not in any pain. She states she is able to move her arm without issue. Patient states that she would like to leave the hospital. Allergies Allergy/AdvReac Type Severity Reaction Status Date / Time lorazepam [From Ativan] AdvReac Severe Hallucinati Verified 05/18/24 14:40 ons pravastatin AdvReac Intermediate Muscle Verified 05/18/24 14:40 weakness simvastatin AdvReac Intermediate Muscle Verified 05/18/24 14:40 weakness cephalexin AdvReac Mild Upset Verified 05/18/24 14:40 stomach valsartan AdvReac Unknown Unknown Verified 05/18/24 14:40 Home Medications Medication Instructions Recorded Confirmed Type loperamide 2 mg tablet (Imodium 2 mg PO Q4H PRN loose stool #30 10/12/21 05/18/24 Rx A-D) tabs acetaminophen 500 mg capsule See Rx Instructions PO Q6H PRN 02/11/23 05/18/24 Rx fever #120 caps furosemide 20 mg tablet 20 mg PO DAILY #30 tabs 09/14/23 05/18/24 Rx promethazine 25 mg tablet 25 mg PO TID PRN nausea and 10/18/23 05/18/24 Rx vomiting #30 tabs memantine 10 mg tablet 10 mg PO BID #180 tabs 12/01/23 05/18/24 Rx apixaban 2.5 mg tablet (Eliquis) 2.5 mg PO BID #60 tabs 12/30/23 05/18/24 Rx potassium chloride 10 mEq 10 meq PO BID #60 caps 12/30/23 05/18/24 Rx capsule,extended release metoprolol tartrate 25 mg tablet 25 mg PO BID #180 tabs 04/19/24 05/18/24 Rx melatonin 5 mg tablet 5 mg PO HS 05/18/24 05/18/24 History pediatric multivitamin 1 tab PO DAILY 05/18/24 05/18/24 History ropinirole 0.5 mg tablet 0.5 mg PO DAILY 05/18/24 05/18/24 History vitamin B complex 1 cap PO DAILY 05/18/24 05/18/24 History Patient History Medical History History of colon polyps Leukopenia Aortic regurgitation Scoliosis Valvular heart disease Poor historian Memory loss Osteoarthritis GERD (gastroesophageal reflux disease) Anemia Depression Hypertension Hyperlipidemia Carotid stenosis Sternal fracture Anxiety Surgical History Hx of foot surgery History of bilateral tubal ligation History of colonoscopy H/O local excision of skin lesion History of varicose vein ligation History of cataract surgery History of breast biopsy History of hernia repair Family History Brother Asthma Diabetes Heart disease Hypertension Cerebral artery occlusion Mother Alzheimer disease Father Heart disease Unknown Crohn's disease Denies family history of Ovarian cancer Prostate cancer Breast cancer Colorectal cancer Social History (Updated 11/01/23 @ 11:06 by Sarina Dorantes LPN) Smoking Status: Never smoker Do You Dip or Chew Tobacco: No; Hx Alcohol Use: Yes Alcohol type: wine Alcohol Intake Frequency Comment: socially Hx Substance Use: No Preferred Language: Tajik Communication Ability: Effective Hearing Ability: Normal Supervisor Fusing Room Required: No Beliefs That Will Affect Care: None marital status: / Current Living Situation: Skilled Nursing Current Living Situation Comment: assisted living 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 Feels Safe at Home: Yes Safety Concerns: Feels Safe At This Time Childhood Exposure to Second-Hand Smoke: No Diet: regular caffeine: Yes Dental Care, Regularly: Yes Physical Activity Frequency: Daily Seatbelt Use: always Sunscreen Use: No Assistive Devices: Cane, Glasses and Walker Review of Systems Review of Systems: Negative unless otherwise noted above Physical Exam Physical Exam: Right shoulder: Nontender to palpation. No open wounds appreciated. No ecchymosis. Patient demonstrates the ability to touch the top of her head without pain. She is able to forward elevate to 90 degrees, abduct to 90 degrees. Her sensations intact in the upper extremity. Left hip: Negative logroll, negative heel strike. Sensation intact to light touch in the lower extremity. EHL, FHL, TA, GSC all intact Results & Data Vital Signs (Past 12 Hours) Vital Signs Pulse Pulse Resp BP Pulse Ox O2 Del Method 05/19/24 02:54 53 L 18 117/63 98 Room Air 05/18/24 23:01 95 H 20 136/81 97 Room Air 05/18/24 22:36 74 05/18/24 22:00 84 25 H 134/96 96 Room Air 05/18/24 21:46 92 H 25 H 133/61 97 05/18/24 20:30 92 H 17 111/61 96 Room Air Diagnostic Findings X-rays of the right shoulder and left hip were personally interpreted and reviewed. These demonstrate no acute osseous abnormalities within the left hip. The right shoulder, she does have evidence of cuff tear arthropathy with an elevated humeral head, and on the scapular Y projection there is potential concern for cortical irregularity of the humeral head and the acromion.
--- NOTE | 2024-05-19 11:17 | Electrocardiogram Report ---
Test Reason : Blood Pressure : */* mmHG Vent. Rate : 88 BPM Atrial Rate : * BPM P-R Int : * ms QRS Dur : 86 ms QT Int : 388 ms P-R-T Axes : * 14 5 degrees QTcB Int : 469 ms Atrial fibrillation Possible Anterior infarct , age undetermined Abnormal ECG When compared with ECG of 01-Feb-2023 13:50, No significant change was found Confirmed by Xu Sena ([id number]) on 05/19/2024 11:17:43 AM Referred By: TYLER Confirmed By: Xu Sena
[2024-05-19] MEDS: cefTRIAXone SODIUM 2,000 MG/50 ML BAG IV SCH (14:51)
[2024-05-19] MEDS: ACETAMINOPHEN 325 MG TAB PO PRN (14:52)
--- NOTE | 2024-05-20 08:24 | Hospitalist Progress Note ---
Date of Service May 19, 2024 Assessment & Plan (1) Acute UTI (urinary tract infection): Plan: Acute - Admit to med/surg - Carb consistent diet d/t diet-controlled DM - Vital signs as per unit protocol - UA grossly infected appearing, covered with ceftriaxone 2g IV x1 in ED, will continue, next dose to start 05/19 @ 0900 - Urine cultured and pending, follow results and tailor abx accordingly - Gentle IVF hydration with NSS at 80 ml/hr On 05/19 Patient appears less confused. COntinue ceftriaxone. (2) Fracture, humerus closed: Plan: Chronicity uncertain in setting of multiple recent falls - Noted on radiograph, do not believe she would lay still for CT but could be considered for additional information - Consult orthopedics, appreciate input, anticipate nonop management - Tylenol for pain relief - Sling to RUE for immobilization - PT/OT eval (3) Anemia: Plan: Acute on chronic, normocytic normochromic - Baseline ~10-11 g/dL - Check FOBT - Iron panel ordered - hemoglobin dropped to 8.4 (4) Renal insufficiency: Plan: Acute - Mild increase in serum creatinine, likely due to mild dehydration - Does not meet criteria for CHERELLE - Gentle IVF hydration as above and repeat BMP ordered for tomorrow AM Plan Chronic medical problems: 1. Afib - stable, continue metoprolol tartrate and low dose eliquis 2. Alzheimer's dementia - continue memantine 10mg bid 3. RLS - worsening restless leg symptoms, trial increase requip to 1mg qhs, as this could certainly be contributing to increased falls. 4. DMT2 - diet controlled, carb consistent diet ordered. Last a1c 6.7% in 2022 VTE ppx will be covered with resumption of eliquis. AM labs have been ordered. PT/OT eval as above. CM for likely skilled rehab placement on discharge. Plan has been d/w Dr. Reed, further orders as warranted by attending. Admission and Anticipated Discharge Date Admission Date: May 18, 2024 Subjective 88 yo female with family at bedside. Patient is less confused. Physical Exam Physical Exam: GENERAL: 88 yo well-nourished elderly F. NAD. EYES: EOMI. PERRLA. Anicteric. HENT: Moist mucous membranes. No scleral icterus. No cervical lymphadenopathy. LUNGS: Clear to auscultation bilaterally. No accessory muscle use. No W/R/R. CARDIOVASCULAR: Irregular with CVR ABDOMEN: Soft, non-tender and non-distended. No palpable masses. Bowel sounds normoactive x 4 quad. EXTREMITIES: No edema of b/l LE. TTP of R humeral head. Peripheral pulses +2/4. NEUROLOGIC: Awake, alert, oriented. No focal neurological deficits. PSYCHIATRIC: Cooperative. Appropriate mood and affect. SKIN: Warm, dry, intact. No rashes or lesions. Results & Data Results & Data Vital Signs (Past 12 Hours) Vital Signs Temp Pulse Resp BP Pulse Ox O2 Del Method 05/20/24 07:25 36.4 C L 85 16 135/73 98 Room Air PG Care Time/CCT Total # of Minutes Spent Total Time Spent with Patient: Total time spent is greater than 50% in coordination of care (as documented) at patient's floor/unit and/or counseling patient: Coding Level of Care Code 04477 SUB INP/OBS CARE 2/35MIN Diagnoses Acute UTI (urinary tract infection) N39.0 Fracture, humerus closed S42.309A Anemia D64.9 Renal insufficiency N28.9
[2024-05-20 08:54] LABS: Hematocrit (blood only) 25.5 % (37.0-47.0); Hemoglobin 8.7 g/dl (12.0-16.0); Mean Corpuscular Hemoglobin 30.7 pg (25.0-34.0); Mean Corpuscular Hgb Conc 34.1 g/dL (32.0-36.0); Mean Corpuscular Volume 90.1 fL (80.0-100.0); Mean Platelet Volume 9.4 fL (9.4-12.4); Platelet Count 185 K/uL (130-400); RDW Coefficient of Variation 13.5 % (11.5-14.5); RDW Standard Deviation 45.1 fL (36.4-46.3); Red Blood Count 2.83 M/uL (4.20-5.40); White Blood Count 3.93 K/ul (4.8-10.8)
[2024-05-20 09:11] LABS: BUN Creatinine Ratio 22.5 (10-20); Creatinine Clr Calc Pharmacy 34.2 ml/min; Potassium 4.2 mmol/L (3.5-5.1)
--- NOTE | 2024-05-20 21:59 | Hospitalist Progress Note ---
Date of Service May 20, 2024 Assessment & Plan (1) Acute UTI (urinary tract infection): Plan: Acute - Admit to med/surg - Carb consistent diet d/t diet-controlled DM - Vital signs as per unit protocol - UA grossly infected appearing, covered with ceftriaxone 2g IV x1 in ED, will continue, next dose to start 05/19 @ 0900 - Urine cultured and pending, follow results and tailor abx accordingly - Gentle IVF hydration with NSS at 80 ml/hr On 05/20 Patient appears less confused. Continue to require IV ceftriaxone. Vitals stable. will discuss possible discharge on 05/21 (2) Fracture, humerus closed: Plan: Chronicity uncertain in setting of multiple recent falls - Noted on radiograph, do not believe she would lay still for CT but could be considered for additional information - Consult orthopedics, appreciate input, anticipate nonop management - Tylenol for pain relief - Sling to RUE for immobilization - PT/OT eval (3) Anemia: Plan: Acute on chronic, normocytic normochromic - Baseline ~10-11 g/dL - Check FOBT - Iron panel ordered - hemoglobin dropped to 8.4 (4) Renal insufficiency: Plan: Acute - Mild increase in serum creatinine, likely due to mild dehydration - Does not meet criteria for CHERELLE - Gentle IVF hydration as above and repeat BMP ordered for tomorrow AM Plan Chronic medical problems: 1. Afib - stable, continue metoprolol tartrate and low dose eliquis 2. Alzheimer's dementia - continue memantine 10mg bid 3. RLS - worsening restless leg symptoms, trial increase requip to 1mg qhs, as this could certainly be contributing to increased falls. 4. DMT2 - diet controlled, carb consistent diet ordered. Last a1c 6.7% in 2022 VTE ppx will be covered with resumption of eliquis. AM labs have been ordered. PT/OT eval as above. CM for likely skilled rehab placement on discharge. Admission and Anticipated Discharge Date Admission Date: May 18, 2024 Subjective Patient is more awake, no new complaints. Son is at bedside. Review of Systems Review of Systems: All systems reviewed & are unremarkable except as noted in HPI & below Physical Exam Physical Exam: GENERAL: 88 yo well-nourished elderly F. NAD. EYES: EOMI. PERRLA. Anicteric. HENT: Moist mucous membranes. No scleral icterus. No cervical lymphadenopathy. LUNGS: Clear to auscultation bilaterally. No accessory muscle use. No W/R/R. CARDIOVASCULAR: Irregular with CVR ABDOMEN: Soft, non-tender and non-distended. No palpable masses. Bowel sounds normoactive x 4 quad. EXTREMITIES: No edema of b/l LE. TTP of R humeral head. Peripheral pulses +2/4. NEUROLOGIC: Awake, alert, oriented. No focal neurological deficits. PSYCHIATRIC: Cooperative. Appropriate mood and affect. SKIN: Warm, dry, intact. No rashes or lesions. Results & Data Results & Data Vital Signs (Past 12 Hours) Vital Signs Temp Pulse Resp BP Pulse Ox O2 Del Method 05/20/24 19:20 36.6 C 73 16 116/63 98 Room Air 05/20/24 15:17 36.5 C 65 16 154/60 H 99 Room Air PG Care Time/CCT Total # of Minutes Spent Total Time Spent with Patient: Total time spent is greater than 50% in coordination of care (as documented) at patient's floor/unit and/or counseling patient: Coding Level of Care Code 78721 SUB INP/OBS CARE 2/35MIN Diagnoses Acute UTI (urinary tract infection) N39.0 Fracture, humerus closed S42.309A Anemia D64.9 Renal insufficiency N28.9
[2024-05-21 06:40] LABS: Hematocrit (blood only) 25.2 % (37.0-47.0); Hemoglobin 8.4 g/dl (12.0-16.0); Mean Corpuscular Hemoglobin 30.8 pg (25.0-34.0); Mean Corpuscular Hgb Conc 33.3 g/dL (32.0-36.0); Mean Corpuscular Volume 92.3 fL (80.0-100.0); Mean Platelet Volume 9.8 fL (9.4-12.4); Platelet Count 182 K/uL (130-400); RDW Coefficient of Variation 13.5 % (11.5-14.5); RDW Standard Deviation 45.2 fL (36.4-46.3); Red Blood Count 2.73 M/uL (4.20-5.40); White Blood Count 4.32 K/ul (4.8-10.8)
[2024-05-21 07:03] LABS: BUN Creatinine Ratio 20.4 (10-20); Creatinine Clr Calc Pharmacy 32.3 ml/min; Potassium 4.4 mmol/L (3.5-5.1)
[2024-05-21 07:27] VITALS: RESP 20; TEMP 98.2; O2SAT 97
[2024-05-21 13:42] VITALS: BP 135/73; PULSE 81
--- NOTE | 2024-05-25 09:22 | Discharge Summary ---
Discharge Summary Date of Service May 21, 2024 Principal Dx & Hospital Course #1 = Principal Diagnosis (1) Acute UTI (urinary tract infection): Acute - Admit to med/surg - Carb consistent diet d/t diet-controlled DM - Vital signs as per unit protocol - UA grossly infected appearing, covered with ceftriaxone 2g IV x1 in ED, will continue, next dose to start 10/5 @ 0900 - Urine cultured and pending, follow results and tailor abx accordingly - Gentle IVF hydration with NSS at 80 ml/hr Patient appears less confused as the hospital stay progressed. Completed 3 days of IV ceftriaxone. Vitals stable. Patient will be discharged. (2) Fracture, humerus closed: Chronicity uncertain in setting of multiple recent falls - Noted on radiograph, do not believe she would lay still for CT but could be considered for additional information - Consult orthopedics, appreciate input, anticipate nonop management - Tylenol for pain relief - Sling to RUE for immobilization (3) Anemia: Acute on chronic, normocytic normochromic - Baseline ~10-11 g/dL - stable. (4) Renal insufficiency: Acute - Mild increase in serum creatinine, likely due to mild dehydration - Does not meet criteria for CHERELLE - Gentle IVF hydration as above Plan Chronic medical problems: 1. Afib - stable, continue metoprolol tartrate and low dose eliquis 2. Alzheimer's dementia - continue memantine 10mg bid 3. RLS - worsening restless leg symptoms, trial increase requip to 1mg qhs, as this could certainly be contributing to increased falls. 4. DMT2 - diet controlled, carb consistent diet ordered. Last a1c 6.7% in 2022 Admission HPI Per Admitting Provider Mirna is an 88 yo F with a pmhx of Alzheimer's dementia, diet-controlled DMT2, afib on chronic DOAC therapy, HLD, and restless leg syndrome who presents to the ER due to c/o right arm pain. Patient is a poor historian and subsequently history was obtained from family and ER documentation as well as from the [facility]) where she resides. Apparently, she has sustained multiple falls over the past several weeks. She presented with primary complaints of L hip and R arm pain. ER work up demonstrated a grossly infected urine and mild renal insufficiency. Imaging of her right shoulder revealed a subacute or chronic fracture of the acromion and right humeral head and neck fracture. She is noted to have a mildly low hgb of 9.5 that is lower than her baseline and a WBC of 4.40. CTH and neck were nonacute. She is afebrile and hemodynamically stable. She was medicated with a dose of Rocephin 2g, APAP 1g IV, and a liter of NSS and has been referred to the hospital medicine team for admission. Discharge Exam GENERAL: 88 yo well-nourished elderly F. NAD. EYES: EOMI. PERRLA. Anicteric. HENT: Moist mucous membranes. No scleral icterus. No cervical lymphadenopathy. LUNGS: Clear to auscultation bilaterally. No accessory muscle use. No W/R/R. CARDIOVASCULAR: Irregular with CVR ABDOMEN: Soft, non-tender and non-distended. No palpable masses. Bowel sounds normoactive x 4 quad. EXTREMITIES: No edema of b/l LE. TTP of R humeral head. Peripheral pulses +2/4. NEUROLOGIC: Awake, alert, oriented. No focal neurological deficits. PSYCHIATRIC: Cooperative. Appropriate mood and affect. SKIN: Warm, dry, intact. No rashes or lesions. Discharge Plan Discharge Items Patient Disposition: Personal Longterm Reason For Visit: R SHOULDER FX, UTI, WEAKNESS Discharge Diagnosis: UTI Activity: Resume your previous activity Non-emergency contact: Primary Care Provider Call non-emergency contact if: you have any medication questions Follow-up/Referrals: Nicanor Ahmadi MD [Primary Care Provider] - Diet: Regular Addtl Attending Provider Instructions: You were treated for a UTI. Your treatment was completed with IV antibitoics. You were also seen for an orthopedic injury. 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 We also increased the requip. Pending Studies at Discharge: No Stand-Alone Forms: My [facility] Skilled Items Patient informed of condition?: Yes DNR: Yes Discharge Level of Care: Skilled Communicable Disease: No Discharge Prognosis: Stable Lines: None Urinary Catheter: No Medications and DC Order Prescriptions: Continued loperamide [Imodium A-D] 2 mg tablet 2 mg PO Q4H PRN (Reason: loose stool) Qty: 30 0RF Rx Instructions: administer after each loose stool until symptoms controlled; do not exceed 16 mg per 24 hrs acetaminophen 500 mg capsule See Rx Instructions PO Q6H PRN (Reason: fever) Qty: 120 0RF Rx Instructions: 2 tablets po QPM, and Q6 prn pain/fever, do not exceed 3000mg/24hours furosemide 20 mg tablet 20 mg PO DAILY Qty: 30 11RF promethazine 25 mg tablet 25 mg PO TID PRN (Reason: nausea and vomiting) Qty: 30 0RF memantine 10 mg tablet 10 mg PO BID Qty: 180 3RF Eliquis 2.5 mg tablet 2.5 mg PO BID Qty: 60 11RF potassium chloride 10 mEq capsule, extended release 10 meq PO BID Qty: 60 5RF metoprolol tartrate 25 mg tablet 25 mg PO BID Qty: 180 3RF melatonin 5 mg Tablet 5 mg PO HS pediatric multivitamin Tablet,Chewable 1 tab PO DAILY vitamin B complex Capsule 1 cap PO DAILY Discontinued ropinirole 0.5 mg tablet 0.5 mg PO DAILY Discharge Orders: Discharge Order (Routine); Ordered 05/21/24 Ordered By: Avery Henderson Admission Data Admit Date/Time: 05/18/24 18:12 Attending Provider: Avery Henderson Admit Provider: Flakito Reed Primary Care Provider: Nicanor Ahmadi Other Providers: Gorge Omalley; Flakito Reed Other Interventions: Discharge Summary Assessment (RN) Last Done: 05/21/24 13:41 Hospital Stay Data Consultations 05/18/24 16:47 ED Decision to Admit Stat 05/18/24 18:32 Consult Orthopedic Surgery Routine Diagnostic Imagining Performed 05/18/24 15:08 CT cervical spine wo con Stat CT head/brain wo con Stat Pending Results Patient Have Any Pending Studies at Discharge: No Discharge Instructions Given to Patient (Per Discharging Provider) You were treated for a UTI. Your treatment was completed with IV antibitoics. You were also seen for an orthopedic injury. 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 We also increased the requip. Total Time Total Time Spent Total Time Spent (In Minutes): 32 Coding Level of Care Code 56039 INP/OBS DISCH >30 MIN Diagnoses Acute UTI (urinary tract infection) N39.0 Fracture, humerus closed S42.309A Anemia D64.9 Renal insufficiency N28.9
== END 2024-05-21 15:47 | disposition home or self-care (01) | DRG 516 ==
LOC: ED 11:44 → SUATTDRO 18:12 → EDINP 18:12 → 3N 20:17

== ENCOUNTER 2024-06-22 15:38 | Inpatient (IN) ==
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
[2024-06-22 16:32] LABS: Basophils # (auto) 0.02 K/uL (0.00-0.20); Basophils % (auto) 0.4 %; Eosinophils # (auto) 0.05 K/uL (0.00-0.50); Eosinophils % (auto) 0.9 %; Hematocrit (blood only) 28.5 % (37.0-47.0); Hemoglobin 9.2 g/dl (12.0-16.0); Immature Granulocytes # (auto) 0.02 K/uL (0.01-0.20); Immature Granulocytes % (auto) 0.4 %; Lymphocytes # (auto) 0.81 K/uL (1.20-3.40); Lymphocytes % (auto) 15.2 %; Mean Corpuscular Hemoglobin 30.2 pg (25.0-34.0); Mean Corpuscular Hgb Conc 32.3 g/dL (32.0-36.0); Mean Corpuscular Volume 93.4 fL (80.0-100.0); Mean Platelet Volume 9.5 fL (9.4-12.4); Monocytes # (auto) 0.77 K/uL (0.11-0.59); Monocytes % (auto) 14.4 %; Neutrophils # (auto) 3.67 K/uL (1.40-6.50); Neutrophils % (auto) 68.7 %; Platelet Count 193 K/uL (130-400); RDW Coefficient of Variation 14.8 % (11.5-14.5); RDW Standard Deviation 50.2 fL (36.4-46.3); Red Blood Count 3.05 M/uL (4.20-5.40); White Blood Count 5.34 K/ul (4.8-10.8)
[2024-06-22 16:50] LABS: Alanine Aminotransferase 30 U/L (7-52); Albumin Globulin Ratio 1.7 (0.9-2); Albumin Level 3.9 gm/dl (3.4-5.0); Alkaline Phosphatase 98 U/L (34-104); Anion Gap 7 (3-11); Aspartate Aminotransferase 49 U/L (13-39); BUN Creatinine Ratio 23.6 (10-20); Bilirubin,Total 1.1 mg/dl (0.2-1.0); Blood Urea Nitrogen 29 mg/dl (6-23); Carbon Dioxide 28 mmol/L (21-32); Chloride 98 mmol/L (98-107); Globulin 2.3 gm/dl (2.5-4.0); Glucose 117 mg/dl (70-99(Fasting)); Lipase 28 U/L (11-82); Potassium 3.7 mmol/L (3.5-5.1); Sodium 133 mmol/L (136-145); Total Protein 6.2 gm/dl (6.0-8.3)
[2024-06-22 16:52] LABS: Troponin I High Sensitivity 16.4 pg/ml (0-14)
--- NOTE | 2024-06-22 17:34 | XRay Report ---
EXAM: Radiographs of the Pelvis 1 View INDICATION: Trauma. TECHNIQUE: Frontal view of the pelvis. COMPARISON: No relevant prior studies available. FINDINGS: Limitations: None. Bones/joints: Degenerative changes present in the visualized lower lumbar spine. The pelvis is rotated and tilted to the left. The right hip is slightly higher than the left. Symmetrical degenerative change of the sacroiliac joints. No fracture. Soft tissues: No abnormality noted. No radiopaque foreign body noted. IMPRESSION: No acute abnormality. ACT 112: Negative or not required by law. Electronically signed by Paulina Troncoso 06-22-2024 5:32 PM
--- NOTE | 2024-06-22 17:34 | XRay Report ---
EXAM: Radiograph of the Chest 1 View INDICATION: Chest pain and weakness. TECHNIQUE: Frontal view of the chest. COMPARISON: No relevant prior studies available. FINDINGS: Lungs and pleural spaces: Symmetrical chronic appearing interstitial thickening. No consolidation or pulmonary edema. No pleural effusion or pneumothorax. Heart: Cardiomegaly. Mediastinum: Normal contour. Bones/joints: Degenerative changes noted in the scoliotic spine. No acute osseous abnormality noted. Soft tissues: No abnormality noted. No radiopaque foreign body noted. Upper abdomen: No abnormality noted. IMPRESSION: Chronic changes. No acute disease. ACT 112: Negative or not required by law. Electronically signed by Paulina Troncoso 06-22-2024 5:29 PM
--- NOTE | 2024-06-22 17:34 | XRay Report ---
EXAM: Radiographs of the Left Forearm 2 Views INDICATION: Fall. TECHNIQUE: Frontal and lateral views of the left forearm. COMPARISON: No relevant prior studies available. FINDINGS: Bones/joints: No fracture, erosion or dislocation. Soft tissues: No abnormality noted. No radiopaque foreign body noted. IMPRESSION: No abnormality noted. ACT 112: Negative or not required by law. Electronically signed by Paulina Troncoso 06-22-2024 5:31 PM
[2024-06-22 17:48] LABS: Appearance Urine Clear (Clear); Bilirubin Urine Negative (Negative); Blood Urine Negative (Negative); Color Urine Yellow; Glucose Urine UA Negative (Negative); Ketones Urine Negative (Negative); Leukocyte Esterase Urine Negative (Negative); Nitrite Urine Negative (Negative); Protein Urine Negative (Negative); Specific Gravity Urine 1.006 (1.000-1.030); Urobilinogen Urine Negative (Negative); pH Urine 7.5 (4.5-7.5)
--- NOTE | 2024-06-22 18:11 | CT Scan Report ---
EXAM: CT Head Without Intravenous Contrast INDICATION: Fall. TECHNIQUE: Axial computed tomography images of the head/brain without intravenous contrast. Sagittal and/or coronal reformats are provided. Sagittal and coronal reformatted images were created and reviewed. This CT exam was performed using one or more of the following dose reduction techniques: automated exposure control, adjustment of the mA and/or kV according to patient size, and/or use of iterative reconstruction technique. COMPARISON: No relevant prior studies available. FINDINGS: Limitations: None. Brain and extra-axial spaces: There is age appropriate cortical atrophy and chronic ischemic periventricular white matter hypodensity. No acute infarct, hemorrhage or mass noted. There is an extra-axial 5 x 3 mm nodule in the right frontal lobe series 4 image 184. Dense dural calcification. Likely meningiomas. No associated edema. Bones/joints: No acute changes. Soft tissues: No significant abnormality noted. Vasculature: No acute abnormality noted. Sinuses: No layering fluid in the visualized portions of the paranasal sinuses. Mastoid air cells: No mastoid effusion. Orbits: No significant abnormality noted. IMPRESSION: 1. Cerebral atrophy. No acute changes. 2. Probable plaque-like meningioma along the anterior falx and 5 x 3 mm right frontal meningioma without edema. ACT 112: Negative or not required by law. Electronically signed by Paulina Troncoso 06-22-2024 6:10 PM
--- NOTE | 2024-06-22 18:15 | CT Scan Report ---
EXAM: CT Cervical Spine Without Intravenous Contrast INDICATION: Fall. TECHNIQUE: Axial computed tomography images of the cervical spine without intravenous contrast. Sagittal and coronal reformatted images were created and reviewed. This CT exam was performed using one or more of the following dose reduction techniques: automated exposure control, adjustment of the mA and/or kV according to patient size, and/or use of iterative reconstruction technique. COMPARISON: No relevant prior studies available. FINDINGS: Limitations: None. Vertebrae: There is diffuse moderate to severe facet arthrosis. There is moderate spondylosis and uncal spurring C4-C7. There is moderate degenerative cystic change of the dens. There is degenerative retrolisthesis of C4-C6 with respect to the levels above and below. Discs/spinal canal/neural foramina: There is complete disc space obliteration C4-C5. Severe narrowing C5-C6 and C6-C7. There is mild ventral canal stenosis at C4-C7. There is bilateral foraminal stenosis at these levels. Soft tissues: No significant abnormality noted. Vasculature: Atherosclerotic calcification noted. Lung apices: No significant abnormality noted. IMPRESSION: 1. No acute cervical fracture. 2. Multilevel moderate to severe degenerative changes. ACT 112: Negative or not required by law. Electronically signed by Paulina Troncoso 06-22-2024 6:14 PM
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
[2024-06-22] MEDS ORDERED: GLUCOSE 10 TAB/TUBE PO PRN (21:21)
[2024-06-22] MEDS ORDERED: CARBOHYDRATES FOR HYPOGLYCEMIA PO PRN (21:21)
[2024-06-22] MEDS ORDERED: GLUCAGON FOR INJ 1 MG VIAL SQ PRN (21:21)
[2024-06-22] MEDS ORDERED: DEXTROSE 50% 50 ML SYRINGE IV PRN (21:21)
[2024-06-22] MEDS ORDERED: GLUCOSE 40% GEL 15 GM TUBE PO PRN (21:21)
[2024-06-23] MEDS ORDERED: PROMETHAZINE HCL 25 MG TAB PO PRN (00:35)
[2024-06-23] MEDS ORDERED: LOPERAMIDE HCL 2 MG CAP PO PRN (01:27)
[2024-06-23 06:02] LABS: Basophils # (auto) 0.02 K/uL (0.00-0.20); Basophils % (auto) 0.4 %; Eosinophils # (auto) 0.08 K/uL (0.00-0.50); Eosinophils % (auto) 1.7 %; Hematocrit (blood only) 27.6 % (37.0-47.0); Hemoglobin 9.1 g/dl (12.0-16.0); Immature Granulocytes # (auto) 0.01 K/uL (0.01-0.20); Immature Granulocytes % (auto) 0.2 %; Lymphocytes # (auto) 0.79 K/uL (1.20-3.40); Lymphocytes % (auto) 17.1 %; Mean Corpuscular Hemoglobin 30.5 pg (25.0-34.0); Mean Corpuscular Volume 92.6 fL (80.0-100.0); Mean Platelet Volume 9.6 fL (9.4-12.4); Monocytes # (auto) 0.61 K/uL (0.11-0.59); Monocytes % (auto) 13.2 %; Neutrophils % (auto) 67.4 %; Platelet Count 180 K/uL (130-400); RDW Coefficient of Variation 14.7 % (11.5-14.5); RDW Standard Deviation 49.7 fL (36.4-46.3); Red Blood Count 2.98 M/uL (4.20-5.40); White Blood Count 4.61 K/ul (4.8-10.8)
[2024-06-23] MEDS: ACETAMINOPHEN 500 MG TAB PO STA (06:06)
[2024-06-23 06:21] LABS: Calcium 8.9 mg/dl (8.6-10.3); Creatinine Clr Calc Pharmacy 39.8 ml/min; Potassium 3.4 mmol/L (3.5-5.1)
[2024-06-23 06:40] LABS: Ferritin 337.3 ng/ml (8-388)
--- NOTE | 2024-06-23 08:19 | Hospitalist Progress Note ---
Date of Service June 23, 2024 Assessment & Plan (1) Falls: Plan: Multiple falls over the past 10 days No acute findings on CT head No focal weakness on exam Chronic tremors, minimal on exam today but intermittent tensing up of extremities PT/OT to evaluate and treat continue fall precautions - CBC in morning labs (2) Weakness: Plan: as above - PT/OT to evaluate and treat - BMP morning labs (3) Senile dementia of Alzheimer's type: Plan: chronic, on memantine - continue on home memantine for now - avoid loud/constant noises and promote good sleep hygiene to curb sundowning/delirium - continue fall precautions (4) Elevated troponin: Plan: Minimal elevation to 16.4, trend No chest pain or pressure - EKG: No acute signs of ischemia Suspect demand-related elevation (5) Paroxysmal A-fib: Plan: chronic, anticoagulated with Eliquis - CT head showing no acute changes - rate adequately controlled with metoprolol, continue - continue with fall precautions (6) CHERELLE (acute kidney injury): Plan: Creatinine resolving, 1.23 -> 1.0 - BUN:Cr ratio 24 >20:1 Encourage PO fluids - BMP morning labs Plan DVT prophylaxis: Eliquis Diet: Type II DM CODE STATUS: DNR/DNI Dispo: MSO Admission and Anticipated Discharge Date Admission Date: June 22, 2024 Supervising Physician Co-Signing Physician Notes I personally examined the patient and verified all pagan points of history and exam, discussed case, and agree with decision making with Dr Collins limited HPI and ROS. updated dtr. she notes she and her sister have been suspecting lots of side effects to memantine vitals noted nad heent nc at mmm breathing unlabored no accessory muscles good effort weakness/falls - dehydration (discussed PO intake w dtr) and memantine ADR (since likely past point in dementia of much meaningful benefit, and with limited benefit anyway any real harm likely outweighing benefit - stop). PT/OT eval and treat - hopefully back to [facility] Subjective Patient was seen sitting in the chair aside her bed this morning, apparently sleeping. Was able to rouse patient awake by saying her name, to which she initially appeared startled but was pleasant shortly after. Endorses she slept well overnight without any particular pain or discomfort. Currently oriented to name and but not to location (stating [place]") or time of year (stating "summer"). This morning, she continues to endorse no pain or discomfort. During encounter patient seemed to tense up her extremities about once every 5-10 seconds with seemingly no stimulus. States she has been up to use the bathroom but she was unsure about whether a nurse helped her. Also unsure if she had any falls while in the hospital. Per nurse, pt never went to bathroom unaccompanied and did not have any falls during her time as an inpatient. Denies any fever, body aches, chills, headache, vision changes, nausea/vomiting, SOB, chest pain, abdominal pain. Review of Systems Review of Systems: per HPI Physical Exam Physical Exam: Constitutional: A&Ox2, appears stated age, in no acute distress HEENT: NC/AT, EOM intact, anicteric sclerae Cardiovascular: irregular rhythm, nontachycardic, +s1/s2, mild systolic murmur best heard around cardiac apex, mild diastolic murmur heard at R sternal border; otherwise no m/r/g Respiratory: clear to auscultation b/l, good air entry b/l, no wheezes/rales/rhonchi MSK: 5/5 strength of all extremities; 1+ pitting edema b/l LE up to mid-calf, non-erythematous, nontender to palpation Skin: significant ecchymosis of R forearm on inspection Neuro: no facial droop, speech intact, no apparent hearing deficits, sensation intact Psych: good eye contact, mood pleasant with congruent affect Results & Data Results & Data Vital Signs (Past 12 Hours) Vital Signs Temp Pulse Pulse Resp BP BP Pulse Ox 06/23/24 07:49 36.9 C 86 17 139/74 98 06/23/24 06:58 36.5 C 89 18 150/80 H 92 06/23/24 00:38 36.6 C 94 H 18 146/74 H 96 06/22/24 23:58 36.6 C 94 H 18 146/74 H 96 06/22/24 23:17 36.5 C 74 18 151/91 H 92 06/22/24 22:00 76 20 151/81 H 95 06/22/24 21:36 82 06/22/24 21:00 85 22 140/82 92 O2 Del Method 06/23/24 07:49 Room Air 06/23/24 06:58 Room Air 06/23/24 00:38 Room Air 06/22/24 23:58 Room Air 06/22/24 23:17 Room Air 06/22/24 22:00 Room Air 06/22/24 21:36 06/22/24 21:00 Room Air Laboratory Results Abnormal lab results 06/22/24 06/22/24 06/23/24 Range/Units 16:10 22:30 05:23 WBC 4.61 L (4.8-10.8) K/ul RBC 3.05 L 2.98 L (4.20-5.40) M/uL Hgb 9.2 L 9.1 L (12.0-16.0) g/dl Hct 28.5 L 27.6 L (37.0-47.0) % RDW Std Deviation 50.2 H 49.7 H (36.4-46.3) fL RDW Coeff of Terrance 14.8 H 14.7 H (11.5-14.5) % Lymph # (Auto) 0.81 L 0.79 L (1.20-3.40) K/uL [place] # (Auto) 0.77 H 0.61 H (0.11-0.59) K/uL Sodium 133 L 135 L (136-145) mmol/L Potassium 3.4 L (3.5-5.1) mmol/L BUN 29 H 24 H (6-23) mg/dl Creatinine 1.23 H (0.6-1.2) mg/dl BUN/Creatinine Ratio 23.6 H 24.0 H (10-20) Glucose 117 H (70-99(Fasting)) mg/dl POC Glucose 108 H (70-99) mg/dl Total Bilirubin 1.1 H D (0.2-1.0) mg/dl AST 49 H (13-39) U/L Troponin I High Sens 16.4 H (0-14) pg/ml Globulin 2.3 L (2.5-4.0) gm/dl Resident Activity Tracking Resident Involvement: Resident Care Provided Care Provided: [facility]
[2024-06-23] MEDS: INSULIN ASPART PER UNIT CHARGE SC SCH (09:48)
[2024-06-23] MEDS: MULTIVITAMIN CHEWABLE TAB PO SCH (09:57)
[2024-06-23] MEDS: VITAMIN B COMPLEX TAB PO SCH (09:58)
[2024-06-23] MEDS: APIXABAN 2.5 MG TAB PO SCH (09:58)
[2024-06-23] MEDS: FUROSEMIDE 20 MG TAB PO SCH (09:58)
[2024-06-23] MEDS: MEMANTINE HCL 10 MG TAB PO SCH (09:58)
[2024-06-23] MEDS: METOPROLOL TARTRATE 25 MG TAB PO SCH (09:59)
[2024-06-23] MEDS: POTASSIUM CHLORIDE 10 MEQ TABCR PO SCH (10:03)
--- NOTE | 2024-06-23 17:37 | Billing Data ---
Date of Service June 23, 2024 Coding Level of Care Code 73277 SUB INP/OBS CARE MIN
[2024-06-23] MEDS: ACETAMINOPHEN 500 MG TAB PO SCH (21:01)
[2024-06-23] MEDS: MELATONIN 3 MG TAB PO SCH (21:01)
[2024-06-24 06:05] LABS: Basophils # (auto) 0.02 K/uL (0.00-0.20); Basophils % (auto) 0.5 %; Eosinophils # (auto) 0.14 K/uL (0.00-0.50); Eosinophils % (auto) 3.3 %; Hematocrit (blood only) 27.9 % (37.0-47.0); Hemoglobin 9.2 g/dl (12.0-16.0); Immature Granulocytes # (auto) 0.02 K/uL (0.01-0.20); Immature Granulocytes % (auto) 0.5 %; Lymphocytes # (auto) 0.97 K/uL (1.20-3.40); Lymphocytes % (auto) 23.2 %; Mean Corpuscular Hemoglobin 30.8 pg (25.0-34.0); Mean Corpuscular Volume 93.3 fL (80.0-100.0); Mean Platelet Volume 9.5 fL (9.4-12.4); Monocytes # (auto) 0.49 K/uL (0.11-0.59); Monocytes % (auto) 11.7 %; Neutrophils # (auto) 2.55 K/uL (1.40-6.50); Neutrophils % (auto) 60.8 %; Platelet Count 179 K/uL (130-400); RDW Coefficient of Variation 14.8 % (11.5-14.5); RDW Standard Deviation 50.2 fL (36.4-46.3); Red Blood Count 2.99 M/uL (4.20-5.40); White Blood Count 4.19 K/ul (4.8-10.8)
[2024-06-24 06:22] LABS: BUN Creatinine Ratio 25.8 (10-20); Calcium 8.8 mg/dl (8.6-10.3); Creatinine Clr Calc Pharmacy 42.8 ml/min; Potassium 3.5 mmol/L (3.5-5.1)
[2024-06-24 06:30] LABS: Troponin I High Sensitivity 19.6 pg/ml (0-14)
--- NOTE | 2024-06-24 06:40 | Hospitalist Progress Note ---
Date of Service June 24, 2024 Assessment & Plan (1) Falls: Plan: Multiple falls over the past 10 days No acute findings on CT head No focal weakness on exam Chronic tremors, minimal on exam today but intermittent tensing up of extremities PT worked with and evaluated patient today: recommending short-term rehab, will continue PT while inpatient and while placement is pending - OT to evaluate and treat patient continue fall precautions - CBC morning labs Case management: caretakers in agreement pt will do short stay rehab if recommended by PT/OT - discussed options and choice for rehab. Pts daughter states [facility] (shared POA) would be the one to make the decision on facility for rehab (2) Weakness: Plan: as above PT worked with and evaluated patient today, to continue PT while inpatient and while placement is pending - OT to evaluate and treat patient - BMP morning labs Case mgmt: see under "Falls" plan (3) Senile dementia of Alzheimer's type: Plan: chronic, on memantine - holding home memantine for now - avoid loud/constant noises and promote good sleep hygiene to curb sundowning/delirium - continue fall precautions (4) Elevated troponin: Plan: Minimal elevation No chest pain or pressure - EKG: No acute signs of ischemia Suspect demand-related elevation (5) Paroxysmal A-fib: Plan: chronic, anticoagulated with Eliquis - CT head showing no acute changes - rate adequately controlled with metoprolol, continue - continue with fall precautions (6) CHERELLE (acute kidney injury): Plan: Creatinine continuing to resolve: 1.0 -> 0.93 - BUN:Cr ratio still >20:1 Encourage PO fluids - BMP morning labs Plan DVT prophylaxis: Eliquis Diet: Type II DM CODE STATUS: DNR/DNI Dispo: MSO Admission and Anticipated Discharge Date Admission Date: June 22, 2024 Supervising Physician Co-Signing Physician Notes I personally examined the patient and verified all pagan points of history and exa m, discussed case, and agree with decision making with Dr Karina luo HPI and ROS. son and DIL present at bedside. d/w PT. input appreciated. vitals noted nad heent nc at mmm breathing unlabored no accessory muscles good effort weakness/falls - dehydration (discussed PO intake w dtr on 06/23) and memantine ADR (d/w dtr 06/23, son 1110)(since likely past point in dementia of much meaningful benefit, and with limited benefit anyway any real harm likely outweighing benefit - stop). PT/OT eval and treat - hopefully back to [facility] but will need to kelley input from [facility] if they still feel they can meet her needs or if she'll require SNF (or "in between" [facility] with dementia unit) otherwise as above Subjective Patient was seen sitting in the chair aside her bed this morning, resting comfortably. Endorses again that she slept well overnight without any particular pain or discomfort. This morning, she continues to endorse no pain or discomfort. Similar to day prior patient seemed to tense up her extremities about once every 5-10 seconds with no apparent stimulus. Notably they don't appear to bother her if she is talking or participating in physical exam. Patient jokingly said I can examine her if I make her bed. Denies any fever, body aches, chills, headache, vision changes, nausea/vomiting, SOB, chest pain, abdominal pain. Review of Systems Review of Systems: per HPI Physical Exam Physical Exam: Constitutional: A&Ox2, appears stated age, in no acute distress HEENT: NC/AT, EOM intact, anicteric sclerae Cardiovascular: irregular rhythm, nontachycardic, +s1/s2, mild systolic murmur best heard around cardiac apex, mild diastolic murmur heard at R sternal border; otherwise no m/r/g Respiratory: clear to auscultation b/l, good air entry b/l, no wheezes/rales/rhonchi MSK: 5/5 strength of all extremities; 1+ pitting edema b/l LE up to mid-calf, non-erythematous, nontender to palpation Skin: significant ecchymosis of R forearm on inspection Neuro: no facial droop, speech intact, no apparent hearing deficits, sensation intact Psych: good eye contact, mood pleasant with congruent affect Results & Data Results & Data Vital Signs (Past 12 Hours) Vital Signs Temp Pulse Resp BP Pulse Ox O2 Del Method 06/23/24 21:04 36.6 C 82 18 117/71 96 Room Air 06/23/24 19:29 Room Air Resident Activity Tracking Resident Involvement: Resident Care Provided Care Provided: Adult Hospital Medicine
[2024-06-24] MEDS: ACETAMINOPHEN 500 MG TAB PO ONE (12:35)
[2024-06-24] MEDS: MAGNESIUM OXIDE 400 MG TAB PO SCH (12:35)
[2024-06-24] MEDS: ACETAMINOPHEN 325 MG TAB PO PRN (16:29)
--- NOTE | 2024-06-24 16:32 | Billing Data ---
Date of Service June 24, 2024 Coding Level of Care Code 15821 SUB INP/OBS CARE
--- NOTE | 2024-06-24 20:36 | Electrocardiogram Report ---
Test Reason : Blood Pressure : */* mmHG Vent. Rate : 82 BPM Atrial Rate : * BPM P-R Int : * ms QRS Dur : 88 ms QT Int : 394 ms P-R-T Axes : * -7 -26 degrees QTcB Int : 460 ms Atrial fibrillation Nonspecific ST and T wave abnormality Abnormal ECG When compared with ECG of 21-Jun-2024 01:59, No significant change Confirmed by Xu Sena ([id number]) on 06/24/2024 8:36:01 PM Referred By: Confirmed By: Xu Sena
--- NOTE | 2024-06-25 07:22 | Hospitalist Progress Note ---
Date of Service June 25, 2024 Assessment & Plan (1) Falls: Plan: Multiple falls over the past 10 days No identified cause No acute findings on CT head No focal weakness on exam PT worked with and evaluated patient today: recommending short-term rehab, will continue PT while inpatient and while placement is pending - OT: recommends SNF too. Continue fall precautions - Labs: WBC: 4.25 / Hb: 9.4/ Na: 133/ K 4.0/ Cr: 0.98/ Glu: 106 Case management: caretakers in agreement pt will do short stay rehab if recommended by PT/OT - discussed options and choice for rehab. Pts daughter states [facility] (shared POA) would be the one to make the decision on facility for rehab - Ready to DC whenever bed is available at Rehab. 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 - F/U with PCP for further decision about Memantine in future. (4) Elevated troponin: Plan: Very minimal elevation on admission: Around 17. - No chest pain/ palpitation. - No serial test. - Pt comfortable today as well. (5) Paroxysmal A-fib: Plan: Chronic, anticoagulated with Eliquis 2.5 mg BID - Rate adequately controlled with metoprolol, continue (6) CHERELLE (acute kidney injury): Plan: Creatinine continuing to resolve: 1.0 -> 0.93--->0.98 Encourage PO fluids. Plan DVT prophylaxis: Eliquis Diet: Type II DM CODE STATUS: DNR/DNI Dispo: MSO Admission and Anticipated Discharge Date Admission Date: June 24, 2024 Supervising Physician Co-Signing Physician Notes Attending Physician Supervision Note: I independently interviewed and examined the patient and verified the pagan history and physical, reviewed labs and image studies and agree with findings and care plan noted above. limited HPI and ROS. daughter present at bedside. vitals noted nad heent nc at mmm breathing unlabored no accessory muscles good effort weakness/falls - dehydration - continue improved PO intake. memantine d/jenni to avoid side effect (not beneficial in current setting). PT/OT eval and treat - for SNF placement - possibly in am. otherwise as above Subjective Chitra is a sweet cheerful lady, she was seen sitting in the chair aside her bed this morning, resting comfortably eating her breakfast. Her daughter was by her bedside assiting her. Denies any fever, body aches, chills, headache, vision changes, nausea/vomiting, SOB, chest pain, abdominal pain. Review of Systems Review of Systems: As per HPI Physical Exam Physical Exam: Constitutional: Well appearing, No acute distress, PILCCOD: Negative HEENT: Atraumatic, Normocephalic, No conjunctival injection CVS: S1 S2 no murmur, Regular Rhythm, no LE edema Respiratory: BL equal air entry with NVBS. No rhonchi, wheezes, or crackles. No increased work of breathing GI: Soft, Nondistended, Nontender, Normal Bowel sounds + MSK: No gross deformities noted Skin: Warm, Dry, No rashes Neuro: Alert, Oriented to TPP, No Focal deficit Psych: Mood and Affect congruent, Cooperative on exam Results & Data Results & Data Vital Signs (Past 12 Hours) Vital Signs Temp Pulse Resp BP Pulse Ox O2 Del Method 06/24/24 21:30 Room Air 06/24/24 20:35 36.4 C L 81 16 165/88 H 97 Room Air Resident Activity Tracking Resident Involvement: Resident Care Provided Care Provided: Adult Hospital Medicine
[2024-06-25 07:37] LABS: Basophils # (auto) 0.02 K/uL (0.00-0.20); Basophils % (auto) 0.5 %; Eosinophils # (auto) 0.09 K/uL (0.00-0.50); Eosinophils % (auto) 2.1 %; Hematocrit (blood only) 28.7 % (37.0-47.0); Hemoglobin 9.4 g/dl (12.0-16.0); Immature Granulocytes # (auto) 0.01 K/uL (0.01-0.20); Immature Granulocytes % (auto) 0.2 %; Lymphocytes # (auto) 0.85 K/uL (1.20-3.40); Mean Corpuscular Hemoglobin 30.4 pg (25.0-34.0); Mean Corpuscular Hgb Conc 32.8 g/dL (32.0-36.0); Mean Corpuscular Volume 92.9 fL (80.0-100.0); Mean Platelet Volume 9.6 fL (9.4-12.4); Monocytes # (auto) 0.47 K/uL (0.11-0.59); Monocytes % (auto) 11.1 %; Neutrophils # (auto) 2.81 K/uL (1.40-6.50); Neutrophils % (auto) 66.1 %; Platelet Count 185 K/uL (130-400); RDW Coefficient of Variation 14.7 % (11.5-14.5); RDW Standard Deviation 49.2 fL (36.4-46.3); Red Blood Count 3.09 M/uL (4.20-5.40); White Blood Count 4.25 K/ul (4.8-10.8)
[2024-06-25 07:43] LABS: BUN Creatinine Ratio 21.4 (10-20); Creatinine Clr Calc Pharmacy 40.7 ml/min
--- NOTE | 2024-06-25 16:52 | Communication Note ---
Date of Service: June 25, 2024 Patient had 3 sutures from a fall in the left ear done on 06-17-2024. Requested that she have these sutures removed after 7 days. Well-healing without erythema 3 sutures in the left ear. 3 sutures were removed from the left ear with suture kit. No need for wound dressing. No bleeding.
[2024-06-26 07:37] LABS: Basophils # (auto) 0.03 K/uL (0.00-0.20); Basophils % (auto) 0.6 %; Eosinophils # (auto) 0.04 K/uL (0.00-0.50); Eosinophils % (auto) 0.8 %; Hematocrit (blood only) 29.5 % (37.0-47.0); Hemoglobin 9.8 g/dl (12.0-16.0); Immature Granulocytes # (auto) 0.03 K/uL (0.01-0.20); Immature Granulocytes % (auto) 0.6 %; Lymphocytes # (auto) 0.82 K/uL (1.20-3.40); Mean Corpuscular Hemoglobin 30.5 pg (25.0-34.0); Mean Corpuscular Hgb Conc 33.2 g/dL (32.0-36.0); Mean Corpuscular Volume 91.9 fL (80.0-100.0); Mean Platelet Volume 9.7 fL (9.4-12.4); Monocytes % (auto) 11.7 %; Neutrophils # (auto) 3.61 K/uL (1.40-6.50); Neutrophils % (auto) 70.3 %; Platelet Count 203 K/uL (130-400); RDW Coefficient of Variation 14.9 % (11.5-14.5); RDW Standard Deviation 49.7 fL (36.4-46.3); Red Blood Count 3.21 M/uL (4.20-5.40); White Blood Count 5.13 K/ul (4.8-10.8)
[2024-06-26 07:55] LABS: Calcium 9.2 mg/dl (8.6-10.3); Creatinine Clr Calc Pharmacy 40.7 ml/min; Potassium 4.3 mmol/L (3.5-5.1)
[2024-06-26] MEDS: CYCLOBENZAPRINE HCL 10 MG TAB PO STA (09:27)
[2024-06-26] MEDS: DICLOFENAC SOD 1% GEL 100 GM TUBE EXT PRN (11:15)
--- NOTE | 2024-06-26 15:09 | Hospitalist Progress Note ---
Date of Service June 26, 2024 Assessment & Plan (1) Falls: Plan: Multiple falls over the past 10 days No identified cause No acute findings on CT head No focal weakness on exam PT worked with and evaluated: recommending short-term rehab, will continue PT while inpatient and while placement is pending - OT: recommends SNF too. Continue fall precautions - Labs: WBC: 4.25 / Hb: 9.4/ Na: 133/ K 4.0/ Cr: 0.98/ Glu: 106 Case management: caretakers in agreement pt will do short stay rehab if recommended by PT/OT - discussed options and choice for rehab. Pts daughter states Tre (shared POA) would be the one to make the decision on facility for rehab - Ready to DC whenever bed is available at Rehab. 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 - F/U with PCP for further decision about Memantine in future. (4) Elevated troponin: Plan: Very minimal elevation on admission: Around 17. - No chest pain/ palpitation. - No serial test. - Pt comfortable today as well. (5) Paroxysmal A-fib: Plan: Chronic, anticoagulated with Eliquis 2.5 mg BID - Rate adequately controlled with metoprolol, continue (6) CHERELLE (acute kidney injury): Plan: Creatinine continuing to resolve: 1.0 -> 0.93--->0.98 Encourage PO fluids. (7) Back pain: Plan: - Chronic back pain. - Last image: Degenerative changes on LS spine. - On exam: No bony tenderness or bony deformity identified. - Bruise from fall noted, however less likely responsible present with pain. - Tylenol 1000 mg PO PM. - Tylenol 650 mg PO PRN. - Added on Voltaren gel today; patient feels better after Voltaren application. - PT/OT continuation after discharge would benefit her pain as well. Plan DVT prophylaxis: Eliquis Diet: Type II DM CODE STATUS: DNR/DNI Dispo: MSO Admission and Anticipated Discharge Date Admission Date: June 24, 2024 Supervising Physician Co-Signing Physician Notes Attending Physician Supervision Note: I independently interviewed and examined the patient and verified the pagan history and physical, reviewed labs and image studies and agree with findings and care plan noted above. seen this am - reported back pain - crying and unable to lay back on the chair. Better on sitting upright. vitals noted nad heent nc at mmm breathing unlabored no accessory muscles good effort Back pain - trial voltaren gel, heat pad, one dose of flexeril. consider imaging based on response. weakness/falls - dehydration - continue improved PO intake. memantine d/jenni to avoid side effect (not beneficial in current setting). PT/OT eval and treat - for SNF placement otherwise as above Subjective Chitra is a sweet cheerful lady, she was seen sitting in the chair aside her bed this morning. She mentioned her back pain has worsened than before. She could barely seat on chair because of pain. No shooting pain in her legs, no numbness or cold legs. No fever, new fall, headache, nausea, vomiting. Eating baseline, slept baseline, Normal bladder. Reviewed her afternoon: she was walking with help of walker with her son helping her. Her pain seems better with Voltagen gel. Review of Systems Review of Systems: As per HPI Physical Exam Physical Exam: Constitutional: Well appearing, No acute distress, PILCCOD: Negative HEENT: Atraumatic, Normocephalic, No conjunctival injection CVS: S1 S2 no murmur, Regular Rhythm, no LE edema Respiratory: BL equal air entry with NVBS. No rhonchi, wheezes, or crackles. No increased work of breathing GI: Soft, Nondistended, Nontender, Normal Bowel sounds + MSK: No gross deformities noted Skin: Warm, Dry, Bruise +nt in right lower back seems old bruise likely from recent fall Neuro: Alert, Oriented to TPP, No Focal deficit Psych: Mood and Affect congruent, Cooperative on exam Results & Data Results & Data Vital Signs (Past 12 Hours) Vital Signs Temp Pulse Resp BP Pulse Ox O2 Del Method 06/26/24 07:53 36.8 C 95 H 17 185/80 H 100 Room Air Resident Activity Tracking Resident Involvement: Resident Care Provided Care Provided: Adult [facility]
[2024-06-27 08:52] LABS: BUN Creatinine Ratio 25.7 (10-20); Calcium 9.4 mg/dl (8.6-10.3); Creatinine Clr Calc Pharmacy 39.4 ml/min; Potassium 4.7 mmol/L (3.5-5.1)
--- NOTE | 2024-06-27 09:37 | Hospitalist Progress Note ---
Date of Service June 27, 2024 Assessment & Plan (1) Falls: (2) Weakness: (3) Senile dementia of Alzheimer's type: (4) Elevated troponin: (5) Paroxysmal A-fib: (6) CHERELLE (acute kidney injury): (7) Back pain: Plan #Multiple falls OT/PT recommends rehab; denied by insurance. #Hyponatremia Na: 124 ( downtrending); likely poor intake. Urine/Serum Osmolality, Urine Na sent. Encourage oral feed. # Back pain: - Chronic Degenerative changes on LS spine. - Tylenol 1000 mg PO PM/ Tylenol 650 mg PO PRN. - Added on Voltaren gel, seems better #Weakness: OT/OT on board #Senile dementia of Alzheimer's type: Stable baseline; Memantine on hold for now OT/OT on board #Paroxysmal A-fib: Chronic, anticoagulated with Eliquis 2.5 mg BID; rate control now. #CHERELLE (acute kidney injury): Resolved DVT prophylaxis: Eliquis Diet: Type II DM CODE STATUS: DNR/DNI Dispo: MSO Admission and Anticipated Discharge Date Admission Date: June 24, 2024 Supervising Physician Co-Signing Physician Notes Attending Physician Supervision Note: I independently interviewed and examined the patient and verified the pagan history and physical, reviewed labs and image studies and agree with findings and care plan noted above. slept most of the morning. on waking up - responsive. back pain still present but not severe. vitals noted nad heent nc at mmm breathing unlabored no accessory muscles good effort Back pain - better but still with pain. check xray lumbar/thoracic spine. prn voltaren gel use. Hyponatremia - sec to dehydration due to poor PO intake. will add 1L D5NSS. weakness/falls - dehydration - continue improved PO intake. memantine d/jenni to avoid side effect (not beneficial in current setting). PT/OT eval and treat - for SNF placement otherwise as above Subjective Today morning Chitra was lying on her bed sleeping. She did not want to communicate much. Nurse informed she has been sleeping since morning. She seems comfortably sleeping with normal vital signs, seems well perfused, no labored breathing. Will reevaluate her afternoon. 11:30 Reassessed: she looks better. Review of Systems Review of Systems: As per HPI Physical Exam Physical Exam: Constitutional: Well appearing, No acute distress, PILCCOD: Negative HEENT: Atraumatic, Normocephalic, No conjunctival injection CVS: S1 S2 no murmur, Regular Rhythm, no LE edema Respiratory: BL equal air entry with NVBS. No rhonchi, wheezes, or crackles. No increased work of breathing GI: Soft, Nondistended, Nontender, Normal Bowel sounds + MSK: No gross deformities noted Skin: Warm, Dry, Bruise +nt in right lower back seems old bruise likely from recent fall Neuro:No Focal deficit Results & Data Results & Data Vital Signs (Past 12 Hours) Vital Signs Temp Pulse Resp BP Pulse Ox O2 Del Method 06/27/24 08:51 36.4 C L 74 16 161/103 H 95 Room Air Resident Activity Tracking Resident Involvement: Resident Care Provided Care Provided: Adult Hospital Medicine
[2024-06-27] MEDS: D5W AND NSS 1,000 ML IV SCH (16:49)
--- NOTE | 2024-06-27 16:51 | XRay Report ---
EXAM: Radiographs of the Lumbosacral Spine 3 Views INDICATION: Pain. TECHNIQUE: Frontal, lateral and spot lateral views obtained. COMPARISON: No relevant prior studies available. FINDINGS: Limitations: None. Vertebrae: Moderate convex left scoliotic curvature noted with significant left pelvic tilt and mild rotation. There are 5 nonrib-bearing lumbar type vertebra normally developed. There is diffuse moderate facet arthrosis and spondylosis. No acute fracture. No subluxation. The pedicles are intact. Sacrum/coccyx: No acute change noted. Disc spaces: No significant narrowing. Soft tissues: No abnormality noted. No radiopaque foreign body noted. Gastrointestinal tract: There is prominent aeration of redundant colon with moderate amounts of formed stool in the right. IMPRESSION: Scoliosis and diffuse moderate degenerative change. ACT 112: Negative or not required by law. Electronically signed by Paulina Troncoso 06-27-2024 4:50 PM
--- NOTE | 2024-06-27 16:52 | XRay Report ---
EXAM: Radiographs of the Thoracic Spine 3 Views INDICATION: History Reason For Study TECHNIQUE: Frontal, lateral and swimmer's views of the thoracic spine. COMPARISON: No relevant prior studies available. FINDINGS: Vertebrae: The bones are demineralized. There is increased kyphosis. There is convex right thoracolumbar scoliosis. There are 12 large rib bearing normally developed thoracic vertebra. There is diffuse moderate spondylosis. No fracture or subluxation. Diffuse to space narrowing present. Pedicles intact. Disc spaces: No acute change noted. No significant narrowing. Soft tissues: No abnormality noted. No radiopaque foreign body noted. IMPRESSION: Scoliosis and diffuse degenerative changes of the thoracic spine. No acute disease. ACT 112: Negative or not required by law. Electronically signed by Paulina Troncoso 06-27-2024 4:52 PM
[2024-06-28] MEDS: INSULIN ASPART PER UNIT CHARGE SC SCH (00:10)
[2024-06-28 08:22] LABS: Basophils # (auto) 0.02 K/uL (0.00-0.20); Basophils % (auto) 0.5 %; Eosinophils # (auto) 0.03 K/uL (0.00-0.50); Eosinophils % (auto) 0.7 %; Hemoglobin 9.6 g/dl (12.0-16.0); Immature Granulocytes # (auto) 0.03 K/uL (0.01-0.20); Immature Granulocytes % (auto) 0.7 %; Lymphocytes # (auto) 0.69 K/uL (1.20-3.40); Lymphocytes % (auto) 15.6 %; Mean Corpuscular Hemoglobin 30.7 pg (25.0-34.0); Mean Corpuscular Hgb Conc 34.3 g/dL (32.0-36.0); Mean Corpuscular Volume 89.5 fL (80.0-100.0); Mean Platelet Volume 9.7 fL (9.4-12.4); Monocytes # (auto) 0.57 K/uL (0.11-0.59); Monocytes % (auto) 12.9 %; Neutrophils # (auto) 3.07 K/uL (1.40-6.50); Neutrophils % (auto) 69.6 %; Platelet Count 198 K/uL (130-400); RDW Coefficient of Variation 14.9 % (11.5-14.5); RDW Standard Deviation 47.9 fL (36.4-46.3); Red Blood Count 3.13 M/uL (4.20-5.40); White Blood Count 4.41 K/ul (4.8-10.8)
[2024-06-28 08:43] LABS: Calcium 8.5 mg/dl (8.6-10.3); Creatinine Clr Calc Pharmacy 45.8 ml/min; Potassium 3.7 mmol/L (3.5-5.1)
--- NOTE | 2024-06-28 13:29 | Hospitalist Progress Note ---
Date of Service June 28, 2024 Assessment & Plan (1) Falls: (2) Weakness: (3) Senile dementia of Alzheimer's type: (4) Elevated troponin: (5) Paroxysmal A-fib: (6) CHERELLE (acute kidney injury): (7) Back pain: Plan #Multiple falls OT/PT recommends rehab; denied by insurance. Memantine on hold since admission #Hyponatremia Na: 124 ( downtrending); likely poor intake. Urine/Serum Osmolality, Urine Na sent. Encourage oral feed. #Jumping leg: Likely restless leg syndrome Distractible on exam; No neurological deficit. # Back pain: - Chronic Degenerative changes on LS spine. - Tylenol 1000 mg PO PM/ Tylenol 650 mg PO PRN/ Voltaren gel #Weakness: OT/OT on board #Senile dementia of Alzheimer's type: Stable baseline; Memantine on hold for now OT/OT on board #Paroxysmal A-fib: Chronic, anticoagulated with Eliquis 2.5 mg BID; rate control now. #CHERELLE (acute kidney injury): Resolved DVT prophylaxis: Eliquis Diet: Type II DM CODE STATUS: DNR/DNI Dispo: OT/PT recommends rehab; denied by insurance. Working on SNF rehab Admission and Anticipated Discharge Date Admission Date: June 24, 2024 Supervising Physician Co-Signing Physician Notes Attending Physician Supervision Note: I independently interviewed and examined the patient and verified the pagan his tory and physical, reviewed labs and image studies and agree with findings and care plan noted above. having leg jerking movement off and on. vitals noted nad heent nc at mmm breathing unlabored no accessory muscles good effort Back pain - better but still with pain. xray lumbar/thoracic spine with arthritic changes. prn voltaren gel use. Hyponatremia - improvement with hydration. Held lasix this am. follow. weakness/falls - dehydration - continue improved PO intake. memantine d/jenni to avoid side effect (not beneficial in current setting). PT/OT eval and treat - for SNF placement Myoclonic movement - ? sec to worsening dementia - will discuss with neurology in am. otherwise as above Subjective Today morning Chitra was lying on her bed sleeping. She mentioned her leg jumping has worsened and is bothering her. She slept poor last night.She looks little less drowsy today, however overall sounds very anxious to me. She is curious if we will do something for her restless leg. Review of Systems Review of Systems: As per HPI Physical Exam Physical Exam: Constitutional: Well appearing, No acute distress, Pale looking HEENT: Atraumatic, Normocephalic, No conjunctival injection CVS: S1 S2 no murmur, Regular Rhythm, no LE edema Respiratory: BL equal air entry with NVBS. No rhonchi, wheezes, or crackles. No increased work of breathing GI: Soft, Nondistended, Nontender, Normal Bowel sounds + MSK: No gross deformities noted Skin: Warm, Dry, Bruise +nt in right lower back seems old bruise likely from recent fall Neuro:No Focal deficit Results & Data Results & Data Vital Signs (Past 12 Hours) Vital Signs Temp Pulse Resp BP Pulse Ox O2 Del Method 06/28/24 07:34 36.8 C 73 18 151/77 H 97 Room Air Resident Activity Tracking Resident Involvement: Resident Care Provided Care Provided: Adult Hospital Medicine
[2024-06-29] MEDS: POLYETHYLENE (MIRALAX) 17 GM PACK PO PRN (07:45)
[2024-06-29 08:37] LABS: BUN Creatinine Ratio 23.5 (10-20); Calcium 8.9 mg/dl (8.6-10.3); Creatinine Clr Calc Pharmacy 46.9 ml/min
[2024-06-29] MEDS: DIVALPROEX EXTENDED RELEASE 250 MG TABCR PO SCH (12:30)
--- NOTE | 2024-06-29 16:13 | Hospitalist Progress Note ---
Date of Service June 29, 2024 Assessment & Plan (1) Falls: (2) Weakness: (3) Senile dementia of Alzheimer's type: (4) Elevated troponin: (5) Paroxysmal A-fib: (6) CHERELLE (acute kidney injury): (7) Back pain: Plan #Multiple falls OT/PT recommends SNF Memantine on hold since admission #Hyponatremia Na: 125; likely poor intake. Urine/Serum Osmolality, Urine Na sent. Encourage oral feed. #Jumping leg: Divalproex 250 mg Once daily added. # Back pain: - Chronic Degenerative changes on LS spine. - Tylenol 1000 mg PO PM/ Tylenol 650 mg PO PRN/ Voltaren gel #Weakness: OT/OT on board #Senile dementia of Alzheimer's type: Stable baseline; Memantine on hold for now OT/OT on board #Paroxysmal A-fib: Chronic, anticoagulated with Eliquis 5 mg BID now. Elliquis increased per cardio; Divalproex can decrease absorption #CHERELLE (acute kidney injury): Resolved DVT prophylaxis: Eliquis Diet: Type II DM CODE STATUS: DNR/DNI Dispo: OT/PT recommends SNF rehab Admission and Anticipated Discharge Date Admission Date: June 24, 2024 Supervising Physician Co-Signing Physician Notes Attending Physician Supervision Note: I independently interviewed and examined the patient and verified the pagan history and physical, reviewed labs and image studies and agree with findings and care plan noted above. seen this am. sitting in bed trying to eat breakfast but unable to figure out what is where. continued leg jerking movement off and on. vitals noted nad heent nc at mmm breathing unlabored no accessory muscles good effort Myoclonic movement - likely sec to worsening dementia - discussed with neurology - add depakote 250mgs ER. A fib - depakote interaction with eliquis - will make eliquis less effective - discussed with cardiology - will increase eliquis dose to 5mgs bid. Back pain - better but still with pain. xray lumbar/thoracic spine with arthritic changes. prn voltaren gel use. Hyponatremia - level still 125. Hypovolemic d/t poor PO intake 1L NSS 06/28. continue to encourage PO intake. continue to hold lasix. follow. weakness/falls - dehydration - continue improved PO intake. memantine d/jenni to avoid side effect (not beneficial in current setting). PT/OT eval and treat - for SNF placement otherwise as above Subjective Today morning Chitra was lying on her bed with breakfast on table, seemingly frustrated. She is constantly tearful, not interested in her breakfast, Review of Systems Review of Systems: As per HPI Physical Exam Physical Exam: Constitutional: Well appearing, No acute distress, Pale looking HEENT: Atraumatic, Normocephalic, No conjunctival injection CVS: S1 S2 no murmur, Regular Rhythm, no LE edema Respiratory: BL equal air entry with NVBS. No rhonchi, wheezes, or crackles. No increased work of breathing GI: Soft, Nondistended, Nontender, Normal Bowel sounds + MSK: No gross deformities noted Skin: Warm, Dry, Bruise +nt in right lower back seems old bruise likely from recent fall Neuro:No Focal deficit Results & Data Results & Data Vital Signs (Past 12 Hours) Vital Signs Pulse Resp BP Pulse Ox O2 Del Method 06/29/24 08:06 89 18 159/106 H 96 Room Air 06/29/24 07:35 Room Air Resident Activity Tracking Resident Involvement: Resident Care Provided Care Provided: Adult Hospital Medicine
[2024-06-29] MEDS: APIXABAN 5 MG TABLET PO SCH (21:07)
[2024-06-30 06:52] LABS: BUN Creatinine Ratio 19.8 (10-20); Calcium 8.6 mg/dl (8.6-10.3); Creatinine Clr Calc Pharmacy 49.2 ml/min; Potassium 3.9 mmol/L (3.5-5.1)
[2024-06-30] MEDS: SODIUM CHLORIDE 1 GM TABLET PO SCH (09:10)
--- NOTE | 2024-06-30 09:39 | Hospitalist Progress Note ---
Date of Service June 30, 2024 Assessment & Plan (1) Falls: (2) Weakness: (3) Senile dementia of Alzheimer's type: (4) Elevated troponin: (5) Paroxysmal A-fib: (6) CHERELLE (acute kidney injury): (7) Back pain: Plan #Multiple falls/ senile dementia OT/PT recommends SNF Memantine on hold since admission #Hyponatremia Na: Downtrending; 123 today ;poor intake. Salt tablet 1 gm BID; keep track of nutrition; can modify diet #Jumping leg: Divalproex 250 mg Once daily. Legs better today # Back pain: - Chronic Degenerative changes on LS spine. - Tylenol 1000 mg PO PM/ Tylenol 650 mg PO PRN/ Voltaren gel #Paroxysmal A-fib: Afib with Controlled VR now. Eliquis 5 mg BID DVT prophylaxis: Eliquis Diet: Diabetic diet CODE STATUS: DNR/DNI Dispo: OT/PT recommends SNF rehab Admission and Anticipated Discharge Date Admission Date: June 24, 2024 Supervising Physician Co-Signing Physician Notes Attending Physician Supervision Note: I independently interviewed and examined the patient and verified the pagan history and physical, reviewed labs and image studies and agree with findings and care plan noted above. in bed crying at times. no leg jerking movement noted. vitals noted nad heent nc at mmm breathing unlabored no accessory muscles good effort Hyponatremia - level 123. Multifactorial. will add salt tab. continue to push PO salt water intake. continue to hold lasix. follow. Myoclonic movement - likely sec to worsening dementia - continue depakote 250mgs ER. A fib - depakote interaction with eliquis - will make eliquis less effective - discussed with cardiology - increased eliquis dose to 5mgs bid. Back pain - better but still with pain. xray lumbar/thoracic spine with arthritic changes. prn voltaren gel use. weakness/falls - dehydration - continue improved PO intake. memantine d/jenni to avoid side effect (not beneficial in current setting). PT/OT eval and treat - for SNF placement otherwise as above Subjective Today morning Chitra was lying on her bed with breakfast on table. She smiles and says he is doing better. Her legs are better than before. He seems better today, however persistently not interested in her food. Review of Systems Review of Systems: As per HPI Physical Exam Physical Exam: Constitutional: Well appearing, No acute distress, Pale looking HEENT: Atraumatic, Normocephalic, No conjunctival injection CVS: S1 S2 no murmur, Regular Rhythm, no LE edema Respiratory: BL equal air entry with NVBS. No rhonchi, wheezes, or crackles. No increased work of breathing GI: Soft, Nondistended, Nontender, Normal Bowel sounds + MSK: No gross deformities noted Skin: Warm, Dry, Bruise +nt in right lower back seems old bruise likely from recent fall Neuro:No Focal deficit Results & Data Results & Data Vital Signs (Past 12 Hours) Vital Signs Temp Pulse Resp BP Pulse Ox O2 Del Method 06/30/24 08:16 36.3 C L 83 16 179/100 H 96 Room Air Resident Activity Tracking Resident Involvement: Resident Care Provided Care Provided: Adult Hospital Medicine
[2024-07-01 06:38] LABS: BUN Creatinine Ratio 17.8 (10-20); Calcium 8.6 mg/dl (8.6-10.3); Creatinine Clr Calc Pharmacy 54.6 ml/min; Potassium 3.6 mmol/L (3.5-5.1)
--- NOTE | 2024-07-01 09:25 | Hospitalist Progress Note ---
Date of Service July 01, 2024 Assessment & Plan (1) Falls: (2) Weakness: (3) Senile dementia of Alzheimer's type: (4) Elevated troponin: (5) Paroxysmal A-fib: (6) CHERELLE (acute kidney injury): (7) Back pain: Plan #Multiple falls/ senile dementia OT/PT recs SNF Memantine on hold. #Hyponatremia Poor intake. Na: 123-->128 today. Salt tablet 1 gm BID added Modify diet; per nurse no intake from table at all. #Jumping leg: Divalproex 250 mg Once daily. Legs better today # Back pain: Chronic Degenerative changes on LS spine. Tylenol 1000 mg PO PM/ Tylenol 650 mg PO PRN/ Voltaren gel #Paroxysmal A-fib: Afib with Controlled VR now. Eliquis 5 mg BID. Dose increased from 2.5 d/t interaction with Divaprolex. DVT prophylaxis: Eliquis Diet: Diabetic diet CODE STATUS: DNR/DNI Dispo: OT/PT recommends SNF rehab Admission and Anticipated Discharge Date Admission Date: June 24, 2024 Supervising Physician Co-Signing Physician Notes Attending Physician Supervision Note: I independently interviewed and examined the patient and verified the pagan history and physical, reviewed labs and image studies and agree with findings and care plan noted above. resting in bed comfortably. on waking up, cries and falls asleep easily. decreased leg jerking movement. vitals noted nad heent nc at mmm breathing unlabored no accessory muscles good effort Hyponatremia - level improved today - 128. Multifactorial - poor nutritional intake. will add salt tab. continue to push PO salt water intake. continue to hold lasix. follow. Myoclonic movement - likely sec to worsening dementia - continue depakote 250mgs ER. A fib - depakote interaction with eliquis - will make eliquis less effective - discussed with cardiology - increased eliquis dose to 5mgs bid. Back pain - better but still with pain. xray lumbar/thoracic spine with arthritic changes. prn voltaren gel use. weakness/falls - dehydration - continue improved PO intake. memantine d/jenni to avoid side effect (not beneficial in current setting). PT/OT eval and treat - for SNF placement otherwise as above Subjective Today morning Chitra was lying on her bed. She expressed her legs are better than before. As per Nursing, she did not eat anything on her table. Review of Systems Review of Systems: As per HPI Physical Exam Physical Exam: Constitutional: Well appearing, No acute distress, Pale looking HEENT: Atraumatic, Normocephalic, No conjunctival injection CVS: S1 S2 no murmur, IRIR, no LE edema Respiratory: BL equal air entry with NVBS. No rhonchi, wheezes, or crackles. No increased work of breathing GI: Soft, Nondistended, Nontender, Normal Bowel sounds + MSK: No gross deformities noted Skin: Warm, Dry, Bruise +nt in right lower back seems old bruise likely from recent fall Neuro:No Focal deficit Results & Data Results & Data Vital Signs (Past 12 Hours) Vital Signs Temp Pulse Resp BP Pulse Ox O2 Del Method 07/01/24 08:31 78 149/81 H 07/01/24 08:00 Room Air 07/01/24 07:55 37.1 C 75 18 161/80 H 95 Room Air Resident Activity Tracking Resident Involvement: Resident Care Provided Care Provided: Adult Hospital Medicine
[2024-07-01] MEDS: APIXABAN 2.5 MG TAB PO SCH (21:24)
[2024-07-02 06:50] LABS: BUN Creatinine Ratio 13.5 (10-20); Calcium 8.8 mg/dl (8.6-10.3); Creatinine Clr Calc Pharmacy 53.8 ml/min; Potassium 3.4 mmol/L (3.5-5.1)
--- NOTE | 2024-07-02 09:00 | Hospitalist Progress Note ---
Date of Service July 02, 2024 Assessment & Plan (1) Falls: (2) Weakness: (3) Senile dementia of Alzheimer's type: (4) Elevated troponin: (5) Paroxysmal A-fib: (6) CHERELLE (acute kidney injury): (7) Back pain: Plan #Multiple falls/ senile dementia OT/PT recs SNF Memantine on hold. #Hyponatremia Poor intake. Na: 123-->128 ---> 132 today. Salt tablet 1 gm BID Modify diet, added boost drink yesterday. 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 Tylenol 1000 mg PO PM/ Tylenol 650 mg PO PRN/ Voltaren gel #Paroxysmal A-fib: Afib with Controlled VR now. Eliquis back to 2.5 mg BID as Divaprolex held. # Family discussion Called daughter Skylar about Goals of care discussion. She tells she does not want her mom to be admitted long time. Mentions she has 4 POAs; might come today to discuss. 1:30 PM: Discussed with all POAs; all agree for comfort care. They are working on dementia facility. DVT prophylaxis: Eliquis Diet: Diabetic diet CODE STATUS: DNR/DNI Dispo: Needs SNF; working on dementia facility Admission and Anticipated Discharge Date Admission Date: June 24, 2024 Supervising Physician Co-Signing Physician Notes I personally examined the patient and verified all pagan points of history and exam, discussed case, and agree with decision making with Dr Swain no new issues medically today. resident physicians led discussion with family regarding goals of care and placement concerns vitals noted nad heent nc at mmm breathing unlabored no accessory muscles good effort Hyponatremia -stable overall. Multifactorial - poor nutritional intake. continue salt tab. continue to push PO salt water intake. continue to hold lasix. follow. Myoclonic movement - continue depakote 250mgs ER. A fib - depakote interaction with eliquis - will make eliquis less effective - prior team discussed with cardiology - increased eliquis dose to 5mgs bid. Back pain - better but still with pain. xray lumbar/thoracic spine with arthritic changes. prn voltaren gel use. weakness/falls - dehydration - continue improved PO intake. memantine d/jenni to avoid side effect (not beneficial in current setting). for dementia unit placement - family discussing which will be best fit otherwise as above Subjective Today morning Chitra was lying on her bed. She smiles and says she is ok. Does not communicate much. Review of Systems Review of Systems: As per HPI Physical Exam Physical Exam: Constitutional: Frail appearing, No acute distress, Pale looking HEENT: Atraumatic, Normocephalic, No conjunctival injection CVS: S1 S2 no murmur, IRIR, no LE edema Respiratory: BL equal air entry with NVBS. No rhonchi, wheezes, or crackles. No increased work of breathing GI: Soft, Nondistended, Nontender, Normal Bowel sounds + MSK: No gross deformities noted Skin: Warm, Dry, Bruise +nt in right lower back seems old bruise likely from recent fall Neuro:No Focal deficit Results & Data Results & Data Vital Signs (Past 12 Hours) Vital Signs O2 Del Method 07/01/24 23:45 Room Air Resident Activity Tracking Resident Involvement: Resident Care Provided Care Provided: Adult Hospital Medicine
--- NOTE | 2024-07-02 18:38 | Billing Data ---
Date of Service July 02, 2024 Coding Level of Care Code 58594 SUB INP/OBS CARE
[2024-07-03 06:52] LABS: BUN Creatinine Ratio 16.4 (10-20); Calcium 8.6 mg/dl (8.6-10.3); Creatinine Clr Calc Pharmacy 54.6 ml/min; Potassium 3.3 mmol/L (3.5-5.1)
--- NOTE | 2024-07-03 10:36 | Hospitalist Progress Note ---
Date of Service July 03, 2024 Assessment & Plan (1) Falls: (2) Weakness: (3) Senile dementia of Alzheimer's type: (4) Elevated troponin: (5) Paroxysmal A-fib: (6) CHERELLE (acute kidney injury): (7) Back pain: Plan #Multiple falls/ senile dementia OT/PT recs SNF Memantine on hold. #Hyponatremia Improved, Na: 134 today; Sec to Poor intake. Salt tablet 1 gm BID ongoing. 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 Divalproex stopped as per POAs request. 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 Tylenol 1000 mg PO PM/ Tylenol 650 mg PO PRN/ Voltaren gel #Paroxysmal A-fib: Afib with Controlled VR now. Eliquis back to 2.5 mg BID as Divaprolex held. #Goal of care discussion Discussed with all 4 POA yesterday, explained situation They agree for optimal care however denied Comfort care. DVT prophylaxis: Eliquis Diet: Normal modified CODE STATUS: DNR/DNI Dispo: Needs SNF; working on dementia facility Admission and Anticipated Discharge Date Admission Date: June 24, 2024 Supervising Physician Co-Signing Physician Notes I personally examined the patient and verified all pagan points of history and exam, discussed case, and agree with decision making with Dr Swain no new issues medically today. awaiting family decision on placement. no complaints from pt. vitals noted nad heent nc at mmm breathing unlabored no accessory muscles good effort Hyponatremia -stable overall. Multifactorial - poor nutritional intake. continue salt tab. continue to push PO salt water intake. continue to hold lasix. follow. Myoclonic movement - continue depakote 250mgs ER. A fib - depakote interaction with eliquis - will make eliquis less effective - prior team discussed with cardiology - increased eliquis dose to 5mgs bid. Back pain - better but still with pain. xray lumbar/thoracic spine with arthritic changes. prn voltaren gel use. weakness/falls - dehydration - continue improved PO intake. memantine d/jenni to avoid side effect (not beneficial in current setting). for dementia unit placement - family discussing which will be best fit otherwise as above Subjective Today morning Chitra was lying on her bed. She seems stable, not that anxious and teary like before. She said she just woke up and has no any active complains this AM. Normal bowel bladder habit. Review of Systems Review of Systems: As per HPI Results & Data Results & Data Vital Signs (Past 12 Hours) Vital Signs Temp Pulse Resp BP Pulse Ox O2 Del Method 07/03/24 07:45 Room Air 07/03/24 07:00 36.4 C L 78 16 167/91 H 95 Room Air Resident Activity Tracking Resident Involvement: Resident Care Provided Care Provided: Adult Hospital Medicine
--- NOTE | 2024-07-03 16:05 | Billing Data ---
Date of Service July 03, 2024 Coding Level of Care Code 26946 SUB INP/OBS CARE
[2024-07-04 07:09] LABS: BUN Creatinine Ratio 13.8 (10-20); Creatinine Clr Calc Pharmacy 61.3 ml/min; Potassium 3.5 mmol/L (3.5-5.1)
--- NOTE | 2024-07-04 17:43 | Hospitalist Progress Note ---
Date of Service July 04, 2024 Assessment & Plan Admission and Anticipated Discharge Date Admission Date: June 24, 2024 Supervising Physician Co-Signing Physician Notes I personally examined the patient and verified all pagan points of history and exam, discussed case, and agree with decision making with Dr Swain no new issues medically today. awaiting family decision on placement. vitals noted sleeping comfortably nad heent nc at mmm breathing unlabored no accessory muscles good effort Hyponatremia -stable overall. Multifactorial - poor nutritional intake. continue salt tab. continue to push PO salt water intake. continue to hold lasix. follow. Myoclonic movement - continue depakote 250mgs ER. A fib - depakote interaction with eliquis - will make eliquis less effective - prior team discussed with cardiology - increased eliquis dose to 5mgs bid. Back pain - better but still with pain. xray lumbar/thoracic spine with arthritic changes. prn voltaren gel use. weakness/falls - dehydration - continue improved PO intake. memantine d/jenni to avoid side effect (not beneficial in current setting). for dementia unit placement - family discussing which will be best fit, stable to go once family chooses otherwise as above Subjective sleeping comfortably, no new issues noted Physical Exam Physical Exam: sleeping comfortably no distress breathing unlabored no accessory muscles good effort skin no rashes no pallor or icterus Results & Data Results & Data Vital Signs (Past 12 Hours) Vital Signs Temp Pulse Resp BP BP Pulse Ox O2 Del Method 07/04/24 14:34 98.2 F 86 18 168/84 H 94 Room Air 07/04/24 11:30 78 20 128/61 96 Room Air 07/04/24 07:50 Room Air 07/04/24 07:06 97.9 F 91 H 18 177/99 H 95 Room Air PG Care Time/CCT Total # of Minutes Spent Total Time Spent with Patient: Total time spent is greater than 50% in coordination of care (as documented) at patient's floor/unit and/or counseling patient: Coding Level of Care Code 98632 SUB INP/OBS CARE 1/25MIN
[2024-07-05 07:49] LABS: BUN Creatinine Ratio 13.6 (10-20); Calcium 8.9 mg/dl (8.6-10.3); Creatinine Clr Calc Pharmacy 60.4 ml/min; Potassium 3.3 mmol/L (3.5-5.1)
--- NOTE | 2024-07-05 18:16 | Hospitalist Progress Note ---
Date of Service July 05, 2024 Assessment & Plan (1) Falls: (2) Weakness: (3) Senile dementia of Alzheimer's type: (4) Elevated troponin: (5) Paroxysmal A-fib: (6) CHERELLE (acute kidney injury): (7) Back pain: Plan #Multiple falls/ senile dementia OT/PT recs SNF Memantine on hold. #Hyponatremia Improved, Na: 138 today; Sec to Poor intake. Salt tablet 1 gm BID ongoing. 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 Divalproex stopped as per POAs request. 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 Tylenol 1000 mg PO PM/ Tylenol 650 mg PO PRN/ Voltaren gel #Paroxysmal A-fib: Afib with Controlled VR now. Eliquis back to 2.5 mg BID as Divaprolex held. #Goal of care discussion Discussed with all 4 POAs 2 days back They agree for optimal care however denied Comfort care. DVT prophylaxis: Eliquis Diet: Normal modified CODE STATUS: DNR/DNI Dispo: Needs SNF; working on dementia facility Admission and Anticipated Discharge Date Admission Date: June 24, 2024 Supervising Physician Co-Signing Physician Notes I personally examined the patient and verified all pagan points of history and exam, discussed case, and agree with decision making with Dr Swain no new issues medically today. still awaiting family decision on placement. vitals noted sleeping comfortably nad heent nc at mmm breathing unlabored no accessory muscles good effort Hyponatremia -stable overall. Multifactorial - poor nutritional intake. continue salt tab. continue to push PO salt water intake. continue to hold lasix. follow. Myoclonic movement - continue depakote 250mgs ER. A fib - depakote interaction with eliquis - will make eliquis less effective - prior team discussed with cardiology - increased eliquis dose to 5mgs bid. Back pain - better but still with pain. xray lumbar/thoracic spine with arthritic changes. prn voltaren gel use. weakness/falls - dehydration - continue improved PO intake. memantine d/jenni to avoid side effect (not beneficial in current setting). for dementia unit placement - completed paperwork, awaiting placement otherwise as above Subjective Today morning Chitra was sitting comfortable in bed, with breakfast on table. Review of Systems Review of Systems: As per HPI Physical Exam Physical Exam: Constitutional: Frail appearing, No acute distress, Pale looking HEENT: Atraumatic, Normocephalic, No conjunctival injection CVS: S1 S2 no murmur, IRIR, no LE edema Respiratory: BL equal air entry with NVBS. No rhonchi, wheezes, or crackles. No increased work of breathing GI: Soft, Nondistended, Nontender, Normal Bowel sounds + Neuro:No Focal deficit Results & Data Results & Data Vital Signs (Past 12 Hours) Vital Signs Temp Pulse Resp BP BP Pulse Ox O2 Del Method 07/05/24 15:16 36.6 C 69 18 164/91 H 99 Room Air 07/05/24 08:00 Room Air 07/05/24 07:34 36.6 C 86 16 176/96 H 93 Room Air Resident Activity Tracking Resident Involvement: Resident Care Provided Care Provided: Adult Hospital Medicine
--- NOTE | 2024-07-05 18:20 | Billing Data ---
Date of Service July 05, 2024 Coding Level of Care Code 36521 SUB INP/OBS CARE
--- NOTE | 2024-07-06 12:14 | Hospitalist Progress Note ---
Date of Service July 06, 2024 Assessment & Plan (1) Falls: (2) Weakness: (3) Senile dementia of Alzheimer's type: (4) Elevated troponin: (5) Paroxysmal A-fib: (6) CHERELLE (acute kidney injury): (7) Back pain: Plan #Multiple falls/ senile dementia OT/PT recs SNF: Waiting for placement; [facility] ready for tomorrow. Memantine on hold. #Hyponatremia Improved, Na: 138 ; Secondary to Poor intake. Salt tablet 1 gm BID ongoing. 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 Tylenol 1000 mg PO PM/ Tylenol 650 mg PO PRN/ Voltaren gel #Paroxysmal A-fib: Afib with Controlled VR now. Eliquis 2.5 mg BID. #Goal of care discussion Discussed with all 4 POAs few days back They agree for optimal care however denied Comfort care. DVT prophylaxis: Eliquis Diet: Normal modified CODE STATUS: DNR/DNI Dispo: Needs SNF, family agreeable, [facility] ready for tomorrow, family can roll picker at 10 AM. Admission and Anticipated Discharge Date Admission Date: June 24, 2024 Supervising Physician Co-Signing Physician Notes I personally examined the patient and verified all pagan points of history and exam, discussed case, and agree with decision making with Dr Swain no new issues medically today. family has decided on [facility] and will be able to take her tomorrow. dtr asked about tylenol PM - discussed risks/benefits/delirogenic risks vitals noted sleeping comfortably nad heent nc at mmm breathing unlabored no accessory muscles good effort Hyponatremia -stable overall. Multifactorial - poor nutritional intake. continue salt tab. continue to push PO salt water intake. continue to hold lasix. follow up as outpt. Myoclonic movement - continue depakote 250mgs ER. A fib - depakote interaction with eliquis - will make eliquis less effective - prior team discussed with cardiology - increased eliquis dose to 5mgs bid. Back pain - better but still with pain. xray lumbar/thoracic spine with arthritic changes. prn voltaren gel use. weakness/falls - dehydration - continue improved PO intake. memantine d/jenni to avoid side effect (not beneficial in current setting). for dementia unit placement - completed paperwork, awaiting placement (tomorrow) otherwise as above Subjective Today morning Chitra was sitting comfortable in bed, with breakfast on table. Review of Systems Review of Systems: As per HPI Physical Exam Physical Exam: Constitutional: Frail appearing, No acute distress, Pale looking HEENT: Atraumatic, Normocephalic, No conjunctival injection CVS: S1 S2 no murmur, IRIR, no LE edema Respiratory: BL equal air entry with NVBS. No rhonchi, wheezes, or crackles. No increased work of breathing GI: Soft, Nondistended, Nontender, Normal Bowel sounds + Neuro:No Focal deficit Results & Data Results & Data Vital Signs (Past 12 Hours) Vital Signs Temp Pulse Resp BP Pulse Ox O2 Del Method 07/06/24 07:57 36.4 C L 78 20 156/86 H 95 Room Air Resident Activity Tracking Resident Involvement: Resident Care Provided Care Provided: Adult Hospital Medicine
--- NOTE | 2024-07-06 19:02 | Billing Data ---
Date of Service July 06, 2024 Coding Level of Care Code 75395 SUB INP/OBS CARE
--- NOTE | 2024-07-07 06:55 | Discharge Summary ---
Date of Service July 07, 2024 Admission HPI Per Admitting Provider Cathie is seen at the bedside. She has a history of dementia and is a [facility]. She has had multiple falls, 7 falls in the last week. Has been eating and drinking okay, sodium is 133 creatinine is slightly elevated with contracted ratio. She is seen at the bedside she awakens easily. Due to dementia she is not oriented to year, and is oriented to "the [place] "but is pleasant and answers questions otherwise appropriately. She denies pain. Denies shortness of breath. Denies lightheadedness and dizziness. Denies diplopia. She is otherwise quite pleasant and has no acute concerns. Family is with her at bedside and notes that she has chronic restless leg syndrome for which she has been getting iron infusions Principal Diagnosis Falls/weakness Discharge Exam Constitutional: Frail appearing, No acute distress, Pale looking HEENT: Atraumatic, Normocephalic, No conjunctival injection CVS: Regular rate and rhythm, no murmur, no LE edema Respiratory: Bilateral equal air entry. No rhonchi, wheezes, or crackles. No increased work of breathing GI: Soft, Nondistended, Nontender, Normal Bowel sounds Neuro:No Focal deficit. Confused. Alert and Oriented to self only. Discharge Data Allergies Allergy/AdvReac Type Severity Reaction Status Date / Time lorazepam [From Ativan] AdvReac Severe Hallucinati Verified 06/19/24 14:11 ons pravastatin AdvReac Intermediate Muscle Verified 06/19/24 14:11 weakness simvastatin AdvReac Intermediate Muscle Verified 06/19/24 14:11 weakness cephalexin AdvReac Mild Upset Verified 06/19/24 14:11 stomach valsartan AdvReac Unknown Unknown Verified 06/19/24 14:11 Consultations 06/22/24 18:41 ED Decision to Admit Stat Ordered Studies 06/22/24 16:02 CT cervical spine wo con Stat CT head/brain wo con Stat Hospital Course (1) Falls: (2) Weakness: (3) Senile dementia of Alzheimer's type: (4) Elevated troponin: (5) Paroxysmal A-fib: (6) CHERELLE (acute kidney injury): (7) Back pain: Plan #Multiple falls/ senile dementia OT/PT recs SNF: Waiting for placement; [facility] ready for tomorrow. Memantine on hold. #Hyponatremia Improved, Na: 138 ; Secondary to Poor intake. Salt tablet 1 gm BID ongoing. 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 Tylenol 1000 mg PO PM/ Tylenol 650 mg PO PRN/ Voltaren gel #Paroxysmal A-fib: Afib with Controlled VR now. Eliquis 2.5 mg BID. #Goal of care discussion Discussed with all 4 POAs few days back They agree for optimal care however denied Comfort care. DVT prophylaxis: Eliquis Diet: Normal modified CODE STATUS: DNR/DNI Dispo: Discharging to SNF, family agreeable, [facility] ready for 07/07/24. Family with transport. Total Time Total Time Spent Total Time Spent (In Minutes): As per attending physician attestation Discharge Plan Discharge Items Patient Disposition: Transfer Care Home Fac Reason For Visit: FALLS, WEAKNESS Discharge Diagnosis: Fall episode, Dementia Condition on Discharge: Fair Activity: Resume your previous activity Non-emergency contact: Primary Care Provider Call non-emergency contact if: your symptoms worsen Follow-up/Referrals: Nicanor Ahmadi MD [Primary Care Provider] - Diet: Regular Addtl Attending Provider Instructions: You were admitted to the hospital for recurrent fall and work up. All of your blood investigations including your CT head and Cardiac monitoring did not identify particular pathology for fall. It is multifactorial including your overall health condition, deconditioning, Multiple medicines. Hence we stopped your memantine for time being. Frusemide was also held because your sodium was on lower range after hospital admission. It is improved now. We will start frusemide on discharge. Make sure to stay hydrated and reach your nutritional goal. We will continue salt supplementation for sometime and mcc goal is to maintain nutrition. Following are sodium rich foods. * Salt: Consuming foods with added salt can help increase sodium levels in the body. * Broth or Soup: Broths, particularly those with high sodium content, can help raise sodium levels. * Canned Vegetables: These often contain added salt (sodium) and can contribute to restoring electrolyte balance. * Cheese: Many types of cheese, like feta or parmesan, are high in sodium. * Pickled Foods: Foods such as pickles, olives, and sauerkraut are rich in sodium. * Processed Meats: Items like ervin, deli meats, and sausages are often high in sodium. * Salted Nuts and Seeds: These snacks can provide additional sodium A discharge summary will be sent to your primary care physician to ensure continuity of care. Please bring this discharge summary with you to your next office appointment so that your provider can review it at that time. Follow-up appointments: Make a follow-up appointment with your PCP within the next week. It is very important that you follow up with them shortly after discharge from the hospital. Keep all your follow-up appointments as already scheduled. If you cannot make an appointment, notify your provider. Medications: Your medication list has been reviewed and reconciled upon discharge to ensure accuracy and continuity of care. Your terminal operator medicine has Memantine has been held for now. An updated list of all your medications is included with your hosp [facility] discharge paperwork. Please review this list closely, and make note of any changes. If you have any issues filling these prescriptions, please call [phone] and ask to leave a message for Dr. Take your medications as instructed; do not skip a dose of your medicines. Make sure all of your doctors know every medicine you are taking (including dwnm-[id number] medicines, vitamins, and supplements). Call your primary care provider before taking any new medicines (including over- the-counter medicines, vitamins, and supplements), because some of these may interact with your current medications, or may make your symptoms worse. Tell your primary care provider if you cannot afford your medications. CONTACT YOUR PRIMARY CARE PROVIDER if you experience any of the following: Worsening of symptoms Fever, chills, or fatigue Difficulty following your treatment plan, or difficulty taking medications CALL 911 OR GO TO THE EMERGENCY DEPARTMENT if you experience any of the follow ing: Sudden, severe abdominal pain or nausea/vomiting Severe chest pain, or chest pain that radiates (moves) to your jaw or arm Sudden, severe shortness of breath or difficulty breathing Thank you for allowing us to participate in your care. If difficulty sleeping persists once she is well established at personal care, would be reasonable to try tylenol PM on top of/instead of melatonin. discussed with patient's family the small but real risk of delirium with diphenhydramine, and because change of environments can precipitate delirium, would want to wait until she has settled in to new environment, but at that point if she was still having sleep difficulties it would not be unreasonable to give a trial and follow for improvement in sleep/tolerability. Pending Studies at Discharge: No Stand-Alone Forms: My [facility] Skilled Items Patient informed of condition?: Yes DNR: Yes Discharge Level of Care: Skilled Communicable Disease: No Discharge Prognosis: Stable Lines: None Urinary Catheter: No Medications and DC Order Prescriptions: New sodium chloride 1,000 mg tablet,soluble 1,000 mg PO DAILY Qty: 20 0RF Continued loperamide [Imodium A-D] 2 mg tablet 2 mg PO Q4H PRN (Reason: loose stool) Qty: 30 0RF Rx Instructions: not on list administer after each loose stool until symptoms controlled; do not exceed 16 mg per 24 hrs promethazine 25 mg tablet 25 mg PO TID PRN (Reason: nausea and vomiting) Qty: 30 0RF Rx Instructions: not on list Eliquis 2.5 mg tablet 2.5 mg PO BID Qty: 60 11RF metoprolol tartrate 25 mg tablet 25 mg PO BID Qty: 180 3RF pediatric multivitamin Tablet,Chewable 1 tab PO DAILY Qty: 30 2RF melatonin 5 mg Tablet 5 mg PO HS vitamin B complex Capsule 1 cap PO DAILY acetaminophen 500 mg Tablet 1,000 mg PO PM Discontinued furosemide 20 mg tablet 20 mg PO DAILY Qty: 30 11RF Hold Instructions: HOLD x3 days potassium chloride 10 mEq capsule, extended release 10 meq PO BID Qty: 60 5RF furosemide 40 mg tablet 40 mg PO DAILY 3 Days Qty: 3 2RF Rx Instructions: f0r 3 days 06/21-06/23 memantine 10 mg tablet 10 mg PO QAM Qty: 90 3RF Discharge Orders: Discharge Order (Routine); Ordered 07/07/24 Ordered By: Yasmeen Robb/Other Patient Handouts: Fall Prevention Assessing Risk, Falls Prevent Outside, AFib, ED FALL-from [id number] Admission Data Admit Date/Time: 06/24/24 16:26 Attending Provider: Moiz Zavaleta Admit Provider: Moiz Zavaleta Primary Care Provider: Nicanor Ahmadi Other Providers: Moiz Zavaleta; Nida Quinones [facility] [place]; [facility]; Joe Donohue Other Interventions: Discharge Summary Assessment (RN) Last Done: 11/23/24 11:44 Supervising Physician Co-Signing Physician Notes Patient seen and examined, chart reviewed, case discussed with Dr. Bowles and I agree with the assessment and plan as above except as otherwise noted above. Doing well at the bedside. TP tangential, no acute distress. Pleasant. Dc to [facility] today. NO ongoing concerns, hemodynamically stable. BP traniently elevated this morning pending morning medications, asymptomatic, improving on provider re-evaluation. Lungs clear. No questions/concerns. Agree w/ above. Resident Activity Tracking Resident Involvement: Resident Care Provided Care Provided: Adult Hospital Medicine
[2024-07-07 08:10] VITALS: RESP 16; TEMP 97.9; O2SAT 100
[2024-07-07 11:47] VITALS: BP 176/96; PULSE 86
--- NOTE | 2024-07-07 12:05 | Billing Data ---
Date of Service July 07, 2024 Coding Level of Care Code 55573 INP/OBS DISCH >30 MIN Time Spent (min) 35
== END 2024-07-07 12:41 | disposition home or self-care (01) | DRG 641 ==
LOC: 3N 15:38 → ED 15:38 → SUATTDRO 21:23 → 3N 23:17 → SUATTDRO 06-24 16:26